=== PATIENT | male | born 1940 | race Caucasian/White ===

== ENCOUNTER → 2017-11-19 | Outpatient (CLI) | payer BC ==
--- NOTE | 2017-11-19 14:11 | US ---
EXAMINATION TYPE: US kidneys/renal and bladder DATE OF EXAM: 11/19/2017 COMPARISON: CT from 2012 CLINICAL HISTORY: R94.4 ABN KIDNEY FUNCTIONS. EXAM MEASUREMENTS: Right Kidney: 10.1 x 5.0 x 5.3 cm Left Kidney: 10.4 x 4.4 x 5.2 cm Right Kidney: Irregular contour; No hydronephrosis or masses seen Left Kidney: Irregular contour; nonshadowing echogenic foci suspicious for stone mid/lower pole Bladder: Suboptimally distended Bilateral Jets seen: right only There is no evidence for hydronephrosis at this point in time. Some cortical thinning is felt prese nt on images saved bilaterally. No suspicious solid or cystic masses are identified on images saved. The urinary bladder is poorly distended and thus suboptimally evaluated. Bilateral ureteral jets ar e not seen. IMPRESSION: No hydronephrosis is evident bilaterally.
== END ==
LOC: RADUSWWP 12:02
PROVIDERS: ATTEND Internal Medicine
DX: R94.4 Abnormal results of kidney function studies (principal)
CPT/HCPCS: 76770

== ENCOUNTER 2019-03-16 10:01 | Day surgery (SDC) | payer BC ==
[2019-03-11 15:10] VITALS: BMI 28.5
[~2019-03-16 10:01] MED LIST: LIDOCAINE 1% 20 ML VIAL (10MG/ML) FOR IV START INTRADERMA PRN
[2019-03-16 10:38] VITALS: TEMP 96.7
[2019-03-16 10:44] LABS: Glucose,Whole Blood 129 mg/dL (75-99)
[2019-03-16] MEDS: LACTATED RINGERS 1,000 ML IV SCH ×2 (10:50→10:51)
[2019-03-16] MEDS ORDERED: PROPOFOL 10 MG/ML 20 ML VIAL IV ONE (10:53)
[2019-03-16] MEDS ORDERED: LIDOCAINE 1% INJ 10MG/ML (20 ML MDV) ONE (10:53)
--- NOTE | 2019-03-16 10:55 | P.GSHP ---
History of Present Illness H&P Date: 03/16/19 Chief Complaint: Blood in stool 79-year-old male comes for colonoscopy today. Family history of colorectal cancer in his mother. No bowel related complaints. He is not sure when his last colonoscopy was. He recently had a cologuaRD test that came back positive. Here for that reason. Past Medical History Past Medical History: Coronary Artery Disease (CAD), Diabetes Mellitus, Hypertension, Prostate Disorder Additional Past Medical History / Comment(s): bowel obstruction History of Any Multi-Drug Resistant Organisms: None Reported Past Surgical History: AICD, Bowel Resection, Cardiac Ablation, Cholecystectomy, Pacemaker Past Anesthesia/Blood Transfusion Reactions: Previous Problems w/ Anesthesia Additional Past Anesthesia/Blood Transfusion Reaction / Comment(s): per pt "last colonoscopy given sedative caused blood pressure to spike" Type of Cardiac Device: Permanent Pacemaker, AICD Device Placement Date:: 2008 Smoking Status: Never smoker - Past Family History Mother Family Medical History: Cancer Additional Family Medical History / Comment(s): at 95 cancer of rectum Medications and Allergies Home Medications Medication Instructions Recorded Confirmed Type Aspirin 81 mg PO DAILY 03/27/14 03/11/19 History Carvedilol [Coreg] 6.25 mg PO BID 03/27/14 03/16/19 History Finasteride [Proscar] 5 mg PO DAILY 03/27/14 03/11/19 History Multivitamins, Thera [Multivitamin] 1 each PO DAILY 03/27/14 03/11/19 History Pravastatin Sodium [Pravachol] 80 mg PO DAILY 03/27/14 03/11/19 History Tamsulosin HCl [Flomax] 0.4 mg PO BID 03/27/14 03/11/19 History amLODIPine BESYLATE/BENAZEPRIL 1 each PO DAILY 03/27/14 03/16/19 History [Lotrel 5-20 mg Capsule] Glimepiride [Amaryl] 4 mg PO BID 03/11/19 03/11/19 History sitaGLIPtin PHOS/metFORMIN HCL 1 each PO Q48H 03/11/19 03/11/19 History [Janumet 50-500 mg Tablet] sitaGLIPtin PHOS/metFORMIN HCL 2 each PO Q48H 03/11/19 03/11/19 History [Janumet 50-500 mg Tablet] Allergies Allergy/AdvReac Type Severity Reaction Status Date / Time atorvastatin calcium AdvReac Rapid Verified 03/16/19 10:24 [From Lipitor] Heart Rate Surgical - Exam Vital Signs Temp Pulse Resp BP Pulse Ox 96.7 F L 85 14 174/82 96 03/16/19 10:36 03/16/19 10:36 03/16/19 10:36 03/16/19 10:36 03/16/19 10:36 Physical exam: General: Well-developed, well-nourished HEENT: Normocephalic, sclerae nonicteric Abdomen: Nontender, nondistended Extremities: No edema Neuro: Alert and oriented Results - Labs Abnormal Lab Results - Last 24 Hours (Table) 03/16/19 Range/Units 10:40 POC Glucose (mg/dL) 129 H (75-99) mg/dL Assessment and Plan (1) Blood in stool Narrative/Plan: Will proceed with colonoscopy at this time. Current Visit: Yes Status: Acute Code(s): K92.1 - MELENA SNOMED Code(s): 500143326
--- NOTE | 2019-03-16 11:21 | P.PCN ---
Date of Procedure: 03/16/19 Procedure(s) Performed: PREOPERATIVE DIAGNOSIS: Blood in stool POSTOPERATIVE DIAGNOSIS: Poor prep, sigmoid colon polyp 2, rectal polyp, tortuous colon, diverticulosis PROCEDURE: Colonoscopy to the transverse colon with polypectomy ANESTHESIA: MAC SURGEON: Martin Norwood M.D. SPECIMENS: Polyps ENDOSCOPIC PROCEDURE: The patient was placed on the endoscopy table in the left decubitus position. The Olympus colonoscope was inserted into the anus and passed under direct visualization to the mid to proximal transverse colon. We couldn't advance the scope any further given the significant tortuosity and the suboptimal prep. The scope was withdrawn from that point. No abnormalities throughout the transverse descending colon were identified. In the sigmoid 2 small polyps were identified and removed using the snare with cautery technique. In the distal rectum at about 5 cm there was noted to be a larger polyp measuring 1 cm that was removed using the snare with cautery technique in one piece. The remainder of the rectum was normal. There was mild left-sided diverticulosis present. Digital rectal examination was normal. The patient was taken to the recovery room in stable condition per anesthesia guidelines. RECOMMENDATIONS: Await biopsy results. Recommend short-term follow-up colonosc opy after 2 day prep.
[2019-03-16 11:32] VITALS: RESP 16
[2019-03-16 11:46] VITALS: BP 153/87; PULSE 73
== END 2019-03-16 12:24 | disposition home or self-care (01) ==
LOC: ORWHC2ENDO 10:01
PROVIDERS: ATTEND Surgery
DX: D12.8 Benign neoplasm of rectum (principal); K57.30 Diverticulosis of large intestine without perforation or abscess without bleeding; Z80.0 Family history of malignant neoplasm of digestive organs; I25.10 Atherosclerotic heart disease of native coronary artery without angina pectoris; I10 Essential (primary) hypertension; E11.9 Type 2 diabetes mellitus without complications; N42.9 Disorder of prostate, unspecified; Z95.810 Presence of automatic (implantable) cardiac defibrillator; Z79.82 Long term (current) use of aspirin; Z79.899 Other long term (current) drug therapy; Z79.84 Long term (current) use of oral hypoglycemic drugs; Z88.8 Allergy status to other drugs, medicaments and biological substances; Z87.19 Personal history of other diseases of the digestive system; Z90.49 Acquired absence of other specified parts of digestive tract
CPT/HCPCS: 88305; 45385; J2001; J2704

== ENCOUNTER → 2021-04-29 | Outpatient (CLI) | payer MEDICARE ==
--- NOTE | 2021-04-29 14:42 | CT ---
EXAMINATION TYPE: CT abdomen pelvis wo con DATE OF EXAM: 04/29/2021 COMPARISON: CT dated 01/25/2015 HISTORY: enlarged prostate CT DLP: 764.1 mGycm Automated exposure control for dose reduction was used. TECHNIQUE: Helical acquisition of images was performed from the lung bases through the pelvis. FINDINGS: LUNG BASES: Bilateral basal subsegmental pulmonary atelectasis. Cardiomediastinal shift to the left s thomas with cardiomegaly. Motion artifacts. LIVER/GB: Scattered tiny pinpoint calcifications likely related to previous granulomatous infection, appreciated previously. No definite hepatic focal lesion by this nonenhanced CT scan. Previous cholec ystectomy. PANCREAS: No significant abnormality is seen. SPLEEN: Tiny pinpoint calcifications likely related to previous granulomatous infection, appreciated previously ADRENALS: No significant abnormality is seen. KIDNEYS: 4 mm left midpole anterior nonobstructing stone. No hydroureter or hydronephrosis. Bilateral perinephric fat stranding and reactive fluid, nonspecific. Grossly unremarkable urinary bladder. FREE AIR: No free air is visualized RETROPERITONEAL ADENOPATHY: None visualized REPRODUCTIVE ORGANS: Prostatic concretion without significant enlargement. Unremarkable seminal vesic les. PELVIC ADENOPATHY: None visualized. OSSEOUS STRUCTURES: Diffuse osteopenia. Marked degenerative changes at the L3-4 level. Old healed le ft lower rib fractures. BOWEL: Significant fecal loading of the colon. Redundant elongated sigmoid colon demonstrating colon ic diverticulosis. Unremarkable small bowel anastomosis. Dilated anterior jejunal loops measuring up to 6.2 cm, likely chronic with no evidence of acute high-grade small bowel obstruction. Normal append ix. OTHER: Excessive arterial atherosclerotic calcifications. No sizable ascites. Fat-containing left ing uinal hernia. IMPRESSION: NO EVIDENCE OF PROSTATIC ENLARGEMENT BY THIS CT SCAN. NO GROSS METASTATIC DISEASE SEEN IN THE ABDOMEN OR THE PELVIS. RECOMMEND CORRELATION WITH PSA LEVEL AND BONE SCAN IF REQUIRED. INCIDENTAL FINDINGS A S DETAILED ABOVE.
--- NOTE | 2021-04-29 21:41 | NM ---
EXAMINATION TYPE: NM bone scan whole body DATE OF EXAM: 04/29/2021 COMPARISON: Same day CT abdomen and pelvis study. HISTORY: Prostate cancer Delayed whole-body scanning was performed following the injection of 22.9 mCi Tc 99m MDP. Images acq uired 3.5 hours post injection. Whole body images anterior posterior projection along with additional spot views of the thorax abdomen and pelvis and bilateral knees FINDINGS: . Focus of increased radiotracer uptake right mid to lower lumbar spine corresponds to incr eased degenerative change at L3-L4 level. Increased radiotracer uptake bilateral knees greatest laterally favors product of degenerative change . Foci of increased radiotracer uptake anterior right lower lobes correspond to cysts subtle sclerosis favor healing fractures late subacute phase for reference sagittal image 18. No suspicious increased radiotracer uptake to suggest metastatic disease to the bone. Urine Contamination is present. IMPRESSION: As above.
== END | disposition home or self-care (01) ==
LOC: RADNMMAIN 09:43
PROVIDERS: ATTEND Urology
DX: C61 Malignant neoplasm of prostate (principal); M47.816 Spondylosis without myelopathy or radiculopathy, lumbar region; M17.0 Bilateral primary osteoarthritis of knee
CPT/HCPCS: 74176; 78306; A9503

== ENCOUNTER → 2021-08-20 | Outpatient (CLI) | payer MEDICARE | END | disposition home or self-care (01) | LOC: LABWHC1 13:15 | PROVIDERS: ATTEND Radiology Radiation Oncology | DX: C61 Malignant neoplasm of prostate (principal); R35.1 Nocturia | CPT/HCPCS: 36415; 84153 ==

== ENCOUNTER → 2022-02-26 | Outpatient (CLI) | payer MEDICARE | END | disposition home or self-care (01) | LOC: LABWHC1 13:52 | PROVIDERS: ATTEND Radiology Radiation Oncology | DX: C61 Malignant neoplasm of prostate (principal); R35.1 Nocturia | CPT/HCPCS: 36415; 84153 ==

== ENCOUNTER → 2022-06-18 | Outpatient (CLI) | payer MEDICARE ==
--- NOTE | 2022-06-18 12:17 | XR ---
EXAMINATION TYPE: XR lumbar spine with bend/flex DATE OF EXAM: 06/18/2022 12:08 PM INDICATION: Patient age:Male; 82 years old; Reason for study: M54.50; [facility]. COMPARISON: Nuclear medicine bone scan 04/29/2021, CT abdomen pelvis 04/29/2021. TECHNIQUE: Frontal, lateral, flexion and extension views of the lumbar spine are obtained. FINDINGS: Diffuse bone demineralization. No evidence of any acute osseous pathology. No evidence of loss of vertebral body height is seen. Multilevel degenerative disc disease with disc space narrowing and endplate sclerosis with anterior osteophytosis. This is most pronounced at L3-L4, L4-L5 and L5-S 1. Multilevel facet arthropathy. Mild levoscoliotic curvature of the lumbar spine with apex at L2-L3. No spondylolisthesis. Vascular sclerosis. Postsurgical changes of the bowel demonstrated within the right lower quadrant with suture material identified. IMPRESSION: 1. No acute process. 2. Moderate lumbar degenerative disc disease and osteoarthritic changes.
== END | disposition home or self-care (01) ==
LOC: RADXRMAIN 11:44
PROVIDERS: ATTEND Internal Medicine
DX: M51.36 Other intervertebral disc degeneration, lumbar region (principal); M47.816 Spondylosis without myelopathy or radiculopathy, lumbar region
CPT/HCPCS: 72114

== ENCOUNTER → 2022-07-09 | Outpatient (CLI) | payer MEDICARE ==
--- NOTE | 2022-07-09 15:51 | XR ---
EXAMINATION TYPE: XR KUB DATE OF EXAM: 07/09/2022 COMPARISON: 01/29/2013 INDICATION: Renal calculus TECHNIQUE: Single view abdomen supine view FINDINGS: There is a normal bowel gas pattern. There appear to be some bowel suture within the right mid abdome n. Psoas margins are normal. No organomegaly is present. Renal stones are not well delineated. IMPRESSION: 1. Unremarkable Abdomen
== END | disposition home or self-care (01) ==
LOC: RADXRMAIN 15:24
PROVIDERS: ATTEND Urology
DX: N20.0 Calculus of kidney (principal)
CPT/HCPCS: 74018

== ENCOUNTER → 2024-02-09 | Outpatient (CLI) | payer MEDICARE ==
--- NOTE | 2024-02-11 00:25 | US ---
EXAMINATION TYPE: US arterial LE single level DATE OF EXAM: 02/09/2024 1:39 PM COMPARISONS: None. CLINICAL INDICATION: Male, 83 years old with history of I73.9 PERIPHERAL VASCULAR DISEASE, UNSPECIFIE D; TECHNIQUE: Systolic pressures were taken of the upper and lower extremity arteries with ankle-brachia l indices and toe brachial indices calculated bilaterally. 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 Extensive vascular calcifications likely present with inability to occlude additional vascular str uctures. Consider CTA runoff for further lower extremity evaluation stenosis. [facility], , 02/11/2024 12:22 AM
== END | disposition home or self-care (01) ==
LOC: RADUSWWP 12:44
PROVIDERS: ATTEND Internal Medicine
DX: I73.9 Peripheral vascular disease, unspecified (principal); E11.51 Type 2 diabetes mellitus with diabetic peripheral angiopathy without gangrene; E78.5 Hyperlipidemia, unspecified; I10 Essential (primary) hypertension; Z86.73 Personal history of transient ischemic attack (TIA), and cerebral infarction without residual deficits; Z87.891 Personal history of nicotine dependence
CPT/HCPCS: 93923

== ENCOUNTER 2024-05-04 10:14 | Inpatient (IN) | payer MEDICARE ==
--- NOTE | 2024-05-04 10:59 | ED ---
General Adult HPI - General Chief complaint: Fall Stated complaint: fall, hip injjury Time Seen by Provider: 05/04/24 10:15 Source: patient, family, EMS, RN notes reviewed Mode of arrival: EMS Limitations: no limitations - History of Present Illness Initial comments: Patient is an 84-year-old male present to the emergency department with concerns with left hip discomfort. Patient had a trip and fall 2 days ago. Patient landed on his left hip. Patient has had hip discomfort with that time, usually just with movement or standing. Patient is not able to ambulate. Patient did strike his head. No syncope or loss of consciousness. No confusion or new weakness. Patient also struck his left elbow however no longer has discomfort there. Patient did have some abrasions. Unclear last tetanus immunization. - Related Data Home Medications Medication Instructions Recorded Confirmed Aspirin 81 mg PO DAILY 03/27/14 05/04/24 Tamsulosin HCl [Flomax] 0.4 mg PO HS 03/27/14 05/04/24 Glimepiride [Amaryl] 4 mg PO BID 03/11/19 05/04/24 sitaGLIPtin PHOS/metFORMIN HCL 1 tab PO BID 03/11/19 05/04/24 [Janumet 50-500 mg Tablet] Acetaminophen [Tylenol Arthritis] 1,300 mg PO DAILY 05/04/24 05/04/24 Acetaminophen/Diphenhydramine 2 tab PO HS 05/04/24 05/04/24 [Tylenol PM 500-25mg] Dapagliflozin Propanediol [Farxiga] 5 mg PO DAILY 05/04/24 05/04/24 Docusate [Colace] 200 mg PO HS 05/04/24 05/04/24 Ezetimibe [Zetia] 10 mg PO HS 05/04/24 05/04/24 Famotidine [Pepcid] 20 mg PO DAILY PRN 05/04/24 05/04/24 Loratadine [Claritin] 10 mg PO DAILY PRN 05/04/24 05/04/24 Metoprolol Succinate (ER) [Toprol 25 mg PO BID 05/04/24 05/04/24 Xl] Multivit-Minerals/FA/Lycopene 1 tab PO HS 05/04/24 05/04/24 [One-A-Day Men's 50 Plus Tablet] Rosuvastatin Calcium [Crestor] 40 mg PO HS 05/04/24 05/04/24 bisacodyL [Dulcolax] 5 mg PO DAILY PRN 05/04/24 05/04/24 Allergies Allergy/AdvReac Type Severity Reaction Status Date / Time atorvastatin calcium AdvReac Rapid Verified 05/04/24 12:45 [From Lipitor] Heart Rate Review of Systems ROS Statement: Those systems with pertinent positive or pertinent negative responses have been documented in the HPI. ROS Other: All systems not noted in ROS Statement are negative. Constitutional: Denies: fever Eyes: Denies: eye pain Respiratory: Denies: cough, dyspnea Cardiovascular: Denies: chest pain Musculoskeletal: Reports: as per HPI Neurological: Denies: headache, weakness, confusion Past Medical History Past Medical History: Coronary Artery Disease (CAD), Diabetes Mellitus, Hypertension, Prostate Disorder Additional Past Medical History / Comment(s): bowel obstruction History of Any Multi-Drug Resistant Organisms: None Reported Past Surgical History: AICD, Bowel Resection, Cardiac Ablation, Cholecystectomy, Pacemaker Past Anesthesia/Blood Transfusion Reactions: Previous Problems w/ Anesthesia Additional Past Anesthesia/Blood Transfusion Reaction / Comment(s): per pt "last colonoscopy given sedative caused blood pressure to spike" Type of Cardiac Device: Permanent Pacemaker, AICD Device Placement Date:: 2008 Past Psychological History: No Psychological Hx Reported Past Alcohol Use History: Daily Past Drug Use History: None Reported - Past Family History Mother Family Medical History: Cancer Additional Family Medical History / Comment(s): at 95 cancer of rectum General Exam Limitations: no limitations General appearance: alert, in no apparent distress Head exam: Present: atraumatic Eye exam: Present: normal appearance, PERRL Neck exam: Present: normal inspection. Absent: tenderness Respiratory exam: Present: normal lung sounds bilaterally Cardiovascular Exam: Present: regular rate, normal rhythm GI/Abdominal exam: Present: soft. Absent: tenderness Extremities exam: Present: tenderness (Left superior rami region. Distally extremities are neurovascular intact) Neurological exam: Present: alert. Absent: motor sensory deficit Psychiatric exam: Present: normal affect, normal mood Skin exam: Present: abrasion Course Vital Signs 05/04/24 10:15 Temperature 97.2 F L Pulse Rate 74 Respiratory 18 Rate Blood Pressure 159/91 O2 Sat by Pulse 96 Oximetry Medical Decision Making - Medical Decision Making Was pt. sent in by a medical professional or institution (Dr., PA, [employer], urgent care, hospital, or [facility]...) When possible be specific @ -No Did you speak to anyone other than the patient for history (EMS, parent, family, police, friend...)? What history was obtained from this source @ - is present and provides history including when the incident occurred and that patient cannot ambulate Did you review nursing and triage notes (agree or disagree)? Why? @ -I reviewed and agree with nursing and triage notes Were old charts reviewed (outside hosp., previous admission, EMS record, old EKG, old radiological studies, urgent care reports/EKG's, [facility] records)? Report findings @ -No old charts were reviewed Differential Diagnosis (chest pain, altered mental status, abdominal pain women, abdominal pain men, vaginal bleeding, weakness, fever, dyspnea, syncope, headache, dizziness, GI bleed, back pain, seizure, CVA, palpatations, mental health, musculoskeletal)? @ -Differential Musculoskeletal Muscular strain, contusion, ligament sprain, fracture, arthritis, septic arthritis, bursitis, cellulitis, muscle spasm, nerve compression, DVT, arterial occlusion, herpes zoster, electrolyte abnormality, tumor.... This is not meant to be in all inclusive list EKG interpreted by me (3pts min.). @ -As above X-rays interpreted by me (1pt min.). @ -Chest x-ray shows no acute process. Left hip x-ray shows left femoral neck fracture. CT interpreted by me (1pt min.). @ -CT scan of brain unremarkable for acute intracranial abnormality U/S interpreted by me (1pt. min.). @ -None done What testing was considered but not performed or refused? (CT, X-rays, U/S, labs)? Why? @ -None What meds were considered but not given or refused? Why? @ -None Did you discuss the management of the patient with other professionals (professionals i.e. KEYLA Mooney, [employer], lab, RT, psych nurse, social work associate, criminal justice lawyer, teacher, geospatial program management officer, telephonic case manager)? Give summary @ -Orthopedics, Dr. Farris notified for admission Was smoking cessation discussed for >3mins.? @ -No Was critical care preformed (if so, how long)? @ -No Were there social determinants of health that impacted care today? How? (Homelessness, low income, unemployed, alcoholism, drug addiction, transportation, low edu. Level, literacy, decrease access to med. care, detention, rehab)? @ -No Was there de-escalation of care discussed even if they declined (Discuss DNR or withdrawal of care, Hospice)? DNR status @ -No What co-morbidities impacted this encounter? (DM, HTN, Smoking, COPD, CAD, Cancer, CVA, ARF, Chemo, Hep., AIDS, mental health diagnosis, sleep apnea, morbid obesity)? @ -History of previous strokes Was patient admitted / discharged? Hospital course, mention meds given and route, prescriptions, significant lab abnormalities, going to OR and other pertinent info. @ -Patient presents with fall and left hip pain, unable to ambulate. X-ray positive for fracture. Patient will be admitted. Patient and family updated Undiagnosed new problem with uncertain prognosis? @ -No Drug Therapy requiring intensive monitoring for toxicity (Heparin, Nitro, Insulin, Cardizem)? @ -No Were any procedures done? @ -No Diagnosis/symptom? @ -Left hip fracture Acute, or Chronic, or Acute on Chronic? @ -Acute Uncomplicated (without systemic symptoms) or Complicated (systemic symptoms)? @ -Default Side effects of treatment? @ -No Exacerbation, Progression, or Severe Exacerbation? @ -No Poses a threat to life or bodily function? How? (Chest pain, USA, PA, pneumonia, PE, COPD, DKA, ARF, appy, cholecystitis, CVA, Diverticulitis, Homicidal, Suicidal, threat to staff... and all critical care pts) @ -No Disposition Clinical Impression: Hip fracture, left Disposition: ADMITTED IP TO THIS HOSP Is patient prescribed a controlled substance at d/c from ED?: No Decision Time: 11:56
[2024-05-04] MEDS: MORPHINE SULFATE 4 MG/ML SYRINGE IM STA (11:03)
[2024-05-04] MEDS: DIPH,PERTUS(ACELL)TETVAC-LF 0.5 ML VIAL IM ONE (11:03)
--- NOTE | 2024-05-04 11:58 | XR ---
EXAMINATION TYPE: XR chest 1V portable DATE OF EXAM: 05/04/2024 11:51 AM COMPARISON: Chest radiographs from 03/27/2014 TECHNIQUE: XR chest 1V portable Portable AP radiograph of the chest. CLINICAL INDICATION:Male, 84 years old with history of fall; FINDINGS: Lungs/Pleura: There is no evidence of pleural effusion, focal consolidation, or pneumothorax. Chroni c interstitial prominence. Heart/mediastinum: Cardiomediastinal silhouette is enlarged and stable. Atherosclerotic calcificatio ns are seen in the aorta. Two lead cardiac conduction device overlying the left hemithorax with lead tips projecting over the right ventricle and right atrium. Musculoskeletal: No acute osseous pathology. IMPRESSION: Chronic changes without evidence for acute process. [facility], , 05/04/2024 11:56 AM
--- NOTE | 2024-05-04 12:00 | XR ---
EXAMINATION TYPE: XR Hip LT and AP Pelvis DATE OF EXAM: 05/04/2024 11:51 AM INDICATION: Patient age:Male; 84 years old; Reason for study: fall; PHH. pain COMPARISON: CT abdomen and pelvis 04/29/2021, KUB radiograph 07/10/2019. TECHNIQUE: The left hip was examined in the frontal and lateral projections and a AP pelvis. FINDINGS: Diffuse bone demineralization. Acute displaced left proximal femur subcapital fracture with shortening. No dislocation. Mild osteoarthritic changes of both hips with medial joint space narrowi ng and acetabular sclerosis. No soft tissue swelling. Vascular calcifications. Prominent gas-filled c olon. Left-sided pelvic phlebolith. IMPRESSION: Acute displaced left proximal femoral subcapital fracture. [facility], , 05/04/2024 11:58 AM
--- NOTE | 2024-05-04 12:12 | CT ---
EXAMINATION TYPE: CT brain wo con CT DLP: 1192.4 mGycm, Automated exposure control for dose reduction was used. DATE OF EXAM: 05/04/2024 12:03 PM COMPARISON: None. CLINICAL INDICATION:Male, 84 years old with history of hi, Fall. Pain TECHNIQUE: Brain: Multiple axial CT images of the brain were obtained without IV contrast. . Coronal and sagitta l reformats reviewed. FINDINGS: Brain: Extra-axial spaces: No abnormal extra-axial fluid collections. Ventricular system: Within normal limits Cerebral parenchyma: Cerebral atrophy. No acute intraparenchymal hemorrhage or mass effect. The juarez -white junction is well differentiated. Scattered hypoattenuating areas are seen within the periventr icular and subcortical white matter. Cerebellum: Unremarkable. Mass effect: No evidence of midline shift. Intracranial vasculature: Atherosclerotic calcifications of the intracranial vessels. Soft tissues: Normal. Calvarium/osseous structures: No depressed skull fracture. Paranasal sinuses and mastoid air cells: Partial opacification of the right mastoid air cells. The pa ranasal sinuses are clear. The left mastoid air cells are clear. Visualized orbits: Bilateral aphakia IMPRESSION: 1. No acute intracranial process. 2. Nonspecific white matter changes, likely secondary to chronic small vessel ischemic disease. 3. Right mastoid effusion. [facility], , 05/04/2024 12:10 PM
[2024-05-04] MEDS ORDERED: HYDROmorphone 0.5 MG/0.5 ML SYRINGE IVP PRN (13:23)
[2024-05-04] MEDS ORDERED: ACETAMINOPHEN TAB 325 MG TAB PO PRN (13:23)
[2024-05-04] MEDS ORDERED: NALOXONE 0.4 MG/ML 1 ML VIAL IV PRN (13:23)
[2024-05-04] MEDS ORDERED: LORATADINE 10 MG TAB PO PRN (13:25)
[2024-05-04 13:54] LABS: Basophils % (A) 0 %; Eosinophils # (A) 0.4 k/uL (0-0.7); Eosinophils % (A) 6 %; HCT 39.6 % (39.0-53.0); HGB 12.8 gm/dL (13.0-17.5); Lymphocytes # (A) 1.3 k/uL (1.0-4.8); Lymphocytes % (A) 17 %; MCH 30.8 pg (25.0-35.0); MCHC 32.2 g/dL (31.0-37.0); MCV 95.6 fL (80.0-100.0); Mean Platelet Volume 7.8; Monocytes # (A) 0.5 k/uL (0-1.0); Monocytes % (A) 6 %; Neutrophils # (A) 5.6 k/uL (1.3-7.7); Neutrophils % (A) 71 %; Platelet Count 190 k/uL (150-450); RBC 4.14 m/uL (4.30-5.90); RDW 13.1 % (11.5-15.5)
[2024-05-04 14:01] LABS: INR 1.1 (<1.2); Prothrombin Time 11.8 sec (10.0-12.5)
[2024-05-04 14:09] LABS: ALT 33 U/L (4-49); African American GFR (CKD) 49 (>60 ml/min/1.73 sqM); Albumin 3.7 g/dL (3.5-5.0); Anion Gap 11 mmol/L; Blood Urea Nitrogen 41 mg/dL (9-20); Calcium 9.3 mg/dL (8.4-10.2); Carbon Dioxide 20 mmol/L (22-30); Chloride 104 mmol/L (98-107); Glucose 115 mg/dL (74-99); Non-African American GFR(CKD) 43 (>60 ml/min/1.73 sqM); Sodium 135 mmol/L (137-145); Total Protein 6.5 g/dL (6.3-8.2)
[2024-05-04 14:13] LABS: AST 35 U/L (17-59); Alkaline Phosphatase 57 U/L (38-126); Potassium 5.6 mmol/L (3.5-5.1)
[2024-05-04] MEDS: HYDROmorphone 1 MG/ML 1 ML SYRINGE IVP PRN (14:58)
[2024-05-04] MEDS ORDERED: DEXTROSE 50% SYRINGE 50 ML IVP PRN ×2 (15:08)
--- NOTE | 2024-05-04 16:02 | P.HPOR ---
History of Present Illness H&P Date: 05/04/24 Chief Complaint: Left hip pain status post fall Patient is a very pleasant [id number]-year-old man who is seen and examined at bedside with his family present. Apparently on Thursday the patient was just walking into his house and try to get inside from the garage and tripped on the step and fell onto his left side. The patient has regular issues with his legs and difficulty walking and usually uses a walker. He often has difficulties with his ambulation and has some chronic weakness at his left leg. He does not feel that he gets around well and is unable to get through the store on his own even with a walker. He also tends to have to use his arms to move his legs around when getting in and out of the car. The patient had a fall in his garage he denies any loss of consciousness. He denies any headaches or neck pain. He had some soreness at his left elbow but it is resolved. He has significant and severe pain at his left hip. He is unable to ambulate or mobilize. He has pain with any motion in his left leg. He denies any pain in his ankle foot or toes. He denies any right leg pain he denies any upper extremity pain denies any neck pain or back pain. He denies any prior issues with his left lower extremity in the past. Denies any changes bowel bladder function. Patient admits to history of diabetes. History of a stroke over 20 years ago and has some residual speech issues but no specific weakness from the stroke. He lives at home with his and normally ambulates with a walker only a small degree and essentially does transfers and walks less than 5 minutes at a stretch before he has to sit down Review of Systems As stated per HPI. He denies headaches or loss of consciousness. He denies any numbness tingling his feet. He denies any changes bowel bladder function he is only really complaining of pain in his left hip Past Medical History Past Medical History: Atrial Fibrillation, Coronary Artery Disease (CAD), Cancer, CVA/TIA, Diabetes Mellitus, GERD/Reflux, Hypertension, Prostate Disorder, Renal Disease Additional Past Medical History / Comment(s): bowel obstruction, prostate CA, swelling in ankles, stage 3 kidney dz, afib/had cardiac ablation History of Any Multi-Drug Resistant Organisms: None Reported Past Surgical History: AICD, Bowel Resection, Cardiac Ablation, Cholecystectomy, Hernia Repair, Pacemaker Past Anesthesia/Blood Transfusion Reactions: Previous Problems w/ Anesthesia Additional Past Anesthesia/Blood Transfusion Reaction / Comment(s): per pt "last colonoscopy given sedative caused blood pressure to spike" Type of Cardiac Device: Permanent Pacemaker, AICD Device Placement Date:: 2008 Past Psychological History: No Psychological Hx Reported Smoking Status: Former smoker Past Alcohol Use History: Daily Past Drug Use History: None Reported - Past Family History Mother Family Medical History: Cancer Additional Family Medical History / Comment(s): at 95 cancer of rectum Medications and Allergies Home Medications Medication Instructions Recorded Confirmed Type Aspirin 81 mg PO DAILY 03/27/14 05/04/24 History Tamsulosin HCl [Flomax] 0.4 mg PO HS 03/27/14 05/04/24 History Glimepiride [Amaryl] 4 mg PO BID 03/11/19 05/04/24 History sitaGLIPtin PHOS/metFORMIN HCL 1 tab PO BID 03/11/19 05/04/24 History [Janumet 50-500 mg Tablet] Acetaminophen [Tylenol Arthritis] 1,300 mg PO DAILY 05/04/24 05/04/24 History Acetaminophen/Diphenhydramine 2 tab PO HS 05/04/24 05/04/24 History [Tylenol PM 500-25mg] Dapagliflozin Propanediol [Farxiga] 5 mg PO DAILY 05/04/24 05/04/24 History Docusate [Colace] 200 mg PO HS 05/04/24 05/04/24 History Ezetimibe [Zetia] 10 mg PO HS 05/04/24 05/04/24 History Famotidine [Pepcid] 20 mg PO DAILY PRN 05/04/24 05/04/24 History Loratadine [Claritin] 10 mg PO DAILY PRN 05/04/24 05/04/24 History Metoprolol Succinate (ER) [Toprol 25 mg PO BID 05/04/24 05/04/24 History Xl] Multivit-Minerals/FA/Lycopene 1 tab PO HS 05/04/24 05/04/24 History [One-A-Day Men's 50 Plus Tablet] Rosuvastatin Calcium [Crestor] 40 mg PO HS 05/04/24 05/04/24 History bisacodyL [Dulcolax] 5 mg PO DAILY PRN 05/04/24 05/04/24 History Allergies Allergy/AdvReac Type Severity Reaction Status Date / Time atorvastatin calcium AdvReac Rapid Verified 05/04/24 12:45 [From Lipitor] Heart Rate Physical Examination Osteopathic Statement: *. No significant issues noted on an osteopathic structural exam other than those noted in the History and Physical/Consult. - Hip left Gait: other (Unable to ambulate or mobilize due to his left hip pain) Tenderness with palpation: lateral (Severe pain with any motion or palpation of the left hip. He is unable to move his left hip at all due to pain. He has sustained dorsiflexion plantarflexion EHL and ankle foot and toes bilaterally) Pain with motion: internal rotation and hip flexion, external rotation and hip flexion (His calves and thighs soft nontender. Distal pulses are intact 2/4) Results - Labs Labs: Abnormal Lab Results - Last 24 Hours (Table) 05/04/24 05/04/24 Range/Units 13:47 13:47 RBC 4.14 L (4.30-5.90) m/uL Hgb 12.8 L (13.0-17.5) gm/dL Sodium 135 L (137-145) mmol/L Potassium 5.6 H (3.5-5.1) mmol/L Carbon Dioxide 20 L (22-30) mmol/L BUN 41 H (9-20) mg/dL Creatinine 1.49 H (0.66-1.25) mg/dL Glucose 115 H (74-99) mg/dL H & H 05/04/24 Range/Units 13:47 Hgb 12.8 L (13.0-17.5) gm/dL Hct 39.6 (39.0-53.0) % Coagulation 05/04/24 Range/Units 13:47 INR 1.1 (<1.2) Result Diagrams: 05/04/24 13:47 05/04/24 13:47 - Diagnostic results Hip x-ray: report reviewed, image reviewed (Hip and pelvis x-rays are reviewed. It shows a left femoral neck fracture with displacement and angulation. It does not appear to extend into the lesser troches. There is no shaft fracture. His bones appear to be osteopenic) Assessment and Plan Assessment: Acute traumatic left hip femoral neck fracture due to a fall Inability to ambulate due to fracture History of diabetes History of stroke History of renal insufficiency Plan: Acute traumatic left hip femoral neck fracture due to a fall Inability to ambulate due to fracture History of diabetes History of stroke History of renal insufficiency The patient has a new acute injury in his left hip and his best course of action is to pursue surgical intervention. I discussed the issue of his hip fracture at length with him and his and daughter at bedside. We discussed the issues with him being able to mobilize as well as his other medical issues and how they contribute. We discussed the risk complications alternatives and b enefits of surgery including not limited to the risk of bleeding risk of infection with need for further surgery risk of decrease or loss of motion loss of function malunion nonunion hardware failure nerve damage inability to ambulate even the possibility and risks with anesthesia as a pertains to the surgery. They understand that this is a severe injury and he may lose significant independence and may not be able to ambulate in the future. I think that surgical intervention gives him the best chance of improving his mobility and allowing him to ambulate to gain further independence following this injury. I discussed this with him at length and answered their questions to the best of my ability and they elect to proceed with surgical intervention. Will make the patient n.p.o. after midnight The patient has been seen by his primary care physician and we will proceed with medical clearance for surgery Will plan for left hip hemiarthroplasty on .
[2024-05-04] MEDS: SODIUM CHLORIDE 0.9% 1,000 ML IV SCH (16:24)
[2024-05-04 16:31] LABS: Glucose,Whole Blood 197 mg/dL (70-110)
[2024-05-04] MEDS: SODIUM ZIRCONIUM CYCLOSILICATE 10 GM PACKET PO ONE (17:20)
[2024-05-04] MEDS: INSULIN LISPRO (HumaLOG) 100 UNIT/ML 10 mL VL SQ SCH (17:20)
[2024-05-04 19:58] LABS: Glucose,Whole Blood 153 mg/dL (70-110)
[2024-05-04] MEDS: NON FORMULARY DRUG (Rosuvastatin Calcium [Crestor] 40 MG Tablet) PO SCH (20:18)
[2024-05-04] MEDS: diphenhydrAMINE 50 MG CAP PO SCH (20:23)
[2024-05-04] MEDS: EZETIMIBE 10 MG TAB PO SCH (20:24)
[2024-05-04] MEDS: GLIMEPIRIDE 4 MG TAB PO SCH (20:24)
[2024-05-04] MEDS: ACETAMINOPHEN TAB 500 MG TAB PO SCH (20:24)
[2024-05-04] MEDS: MULTIVITAMINS, THERA 1 EACH TAB PO SCH (20:24)
[2024-05-04] MEDS: metFORMIN 500 MG TAB PO SCH (20:24)
[2024-05-04] MEDS: DOCUSATE 100 MG CAP PO SCH (20:24)
[2024-05-04] MEDS: TAMSULOSIN 0.4 MG CAP.ER.24H PO SCH (20:24)
[2024-05-04] MEDS: METOPROLOL SUCCINATE (ER) 25 MG TAB.ER.24H PO SCH (20:24)
[2024-05-04] MEDS: HYDROcodone/APAP 7.5-325MG 1 EACH TAB PO PRN (20:43)
[2024-05-05] MEDS: MORPHINE SULFATE 4 MG/ML SYRINGE IVP PRN (03:03)
[2024-05-05 06:09] LABS: Glucose,Whole Blood 124 mg/dL (70-110)
[2024-05-05] MEDS: IV FLUID CONTINUATION 1,000 ML IV ONE (10:54)
[2024-05-05 11:11] LABS: Glucose,Whole Blood 141 mg/dL (70-110)
[2024-05-05] MEDS: DEXAMETHASONE SOD PHOSPHATE 4 MG/ML 1 ML VIAL IVP STA (11:44)
[2024-05-05] MEDS: MIDAZOLAM 2 MG/2 ML VIAL IV ONE (11:44)
[2024-05-05] MEDS: ONDANSETRON 4 MG/2 ML VIAL IVP STA (11:45)
[2024-05-05] MEDS ORDERED: ROPIVACAINE 5 MG/ML 30 ML VIAL ONE (11:56)
[2024-05-05] MEDS ORDERED: DEXAMETHASONE SOD PHOSPHATE 4 MG/ML 1 ML VIAL ONE (11:56)
[2024-05-05] MEDS ORDERED: ETOMIDATE 2 MG/ML 10 ML VIAL ONE (11:56)
[2024-05-05] MEDS ORDERED: SUGAMMADEX SODIUM 100 MG/ML SYR IV ONE (11:56)
[2024-05-05] MEDS ORDERED: LIDOCAINE 1% INJ 10MG/ML (20 ML MDV) ONE (11:56)
[2024-05-05] MEDS ORDERED: KETAMINE HCL IN 0.9 % NACL 50 MG/5 ML SYRINGE ONE (11:56)
[2024-05-05] MEDS ORDERED: PHENYLEPHRINE 10 MG/ML VIAL ONE (11:56)
[2024-05-05] MEDS ORDERED: ePHEDrine 50 MG/ML 1 ML VIAL ONE (11:56)
[2024-05-05] MEDS ORDERED: WATER FOR INJECTION, STERILE 10 ML VIAL IV ONE (11:56)
--- NOTE | 2024-05-05 12:55 | P.ANPRN ---
Procedure Note - Anesthesia - Nerve Block Performed Left Donal Single Time Out Performed: Yes Date of Procedure: 05/05/24 Procedure Start Time: 11:30 Procedure Stop Time: 11:35 Location of Patient: PreOp Indication: Acute Post-Operative Pain, Analgesia, Requested by Surgeon Sedation Type: Sedate with meaningful contact maintained Preparation: Sterile Prep Position: Supine Catheter: None Needle Types: Pajunk Needle Gauge: 21 Ultrasound used to visualize needle placement: Yes Ultrasound used to observe medication spread: Yes Injectate: 0.5% Ropivacaine (see comment for volume) ([id number]) Blood Aspirated: No Pain Paresthesia on Injection Noted: No Resistance on Injection: Normal Image Stored and Saved: Yes Events: Uneventful and Well Tolerated
[2024-05-05] MEDS ORDERED: HYDROcodone/APAP 5-325MG 1 EACH TAB PO PRN (13:29)
[2024-05-05] MEDS ORDERED: HYDROmorphone 0.5 MG/0.5 ML SYRINGE IVP PRN (13:29)
[2024-05-05] MEDS ORDERED: NALOXONE 0.4 MG/ML 1 ML VIAL IV PRN (13:30)
--- NOTE | 2024-05-05 13:39 | P.OP ---
Date of Procedure: 05/05/24 Preoperative Diagnosis: Left hip femoral neck fracture, acute traumatic displaced and angulated neurovascular intact status post fall Postoperative Diagnosis: Same Anesthesia: GETA Pathology: other (Femoral head to pathology) Condition: stable Disposition: PACU Description of Procedure: Preoperative diagnosis: Left hip femoral neck fracture, acute traumatic displaced and angulated neurovascular intact status post fall Postoperative diagnosis: Same Procedure: Hip hemiarthroplasty, left Surgeon: Dr. Kaleigh Calderont.: Chris Rivers who is present that the entire the case persistence during positioning dissection exposure placement of hardware and closure Anesthesia: General Per Dr. Mckenzie Estimated blood loss: 100 cc Components implanted: [employer] size 6 collared stem with a 50 mm ball standard neck Disposition: To recovery room in good stable condition Operative indications The patient sustained a injury and suffered a femoral neck fracture which was displaced and angulated. He is normally a minimal ambulator with a walker. He is typically able to change positions and get around the house with his walker but is unable to walk more than 5 minutes in general. He was exiting his car and trying to get into his house when he fell in his garage onto his left hip. He has history of cerebrovascular accident and some cardiac history. He norm ally gets around with significant assistance and with his walker but is able to get himself dressed and get up for meals on his own and get to the bathroom on his own. We were involved in the case in regard to his hip fracture. After evaluation it was determined that they would be a candidate for hip hemiarthroplasty via surgical intervention. This would give them the best chance of mobilization and ambulation. We discussed the range of treatment options from conservative to surgical. They elected proceed with surgical intervention. We answered their questions to the best of our ability healing which they can understand. They signed an informed consent. Operative summary After obtaining informed consent evaluation by anesthesia, preoperative evaluation and clearance for medical service, the patient was identified and prepped [place] area and the surgical site was marked. There brought to the operating room where the given appropriate anesthesia by the anesthesia department in standard fashion without any complications. Once the anesthesia was established we were able to position the patient. There placed in a lateral decubitus position with the operative side up being careful to pad any bony prominences and pressure points and place a excellent roll appropriately. The airway and C-spine was monitored continuously. Once patient was well positioned the left lower extremity was prepped and draped in normal standard sterile fashion. An appropriate keystone protocol and timeout was completed and were able to proceed with surgery. A curvilinear incision was established over the greater trochanter. Dissection was taken down to the tensor fascia jae which was split in line with its fibers and extended proximally into the gluteal fibers. A Charnley retractor was established. The trochanteric bursa was inflamed and removed. I was able to then dissect down off the posterior aspect of the greater trochanter taking the piriformis tendon and the posterior capsule in one full-thickness flap and tacking it with suture. This expose the fracture at the femoral neck which was easily identified. There is a comminuted fracture of the femoral neck which was displaced. A guide was used to establish the appropriate femoral neck cut and a bone-cutting saw was used to establish the femoral neck cut and good alignment and good position. All the bony fragments were removed. I was then able to use a corkscrew device to remove the femoral head from the acetabulum. Any loose fragments in the acetabulum were removed. The femoral head was measured for the appropriate size implant and then passed off for pathology. Appropriate retractors were placed and I established a lateral box cut chisel. I then used a starting reamer to establish the femoral canal area I then sequentially reamed with sequential reamers until we had good bony chatter distally. With this we then started to broach with sequential broaches to the appropriate sized to we had good fit and fill. There is no evidence any fracture in the possible femur. With the appropriate size broach well seated and stable I placed the trial neck and head. A gentle reduction was performed to get good reduction. The hip was taken through a good range of motion and found to be stable in the position of sleep and through a range of motion. It had a good shuck test. We were able to then dislocate the trial prosthesis. The broach was found to remain stable. It was then removed. The wound was copiously irrigated and suctioned dry with pulsatile lavage. The appropriate size femoral stem of a size 6 with collar with a 50 mm head and a standard neck was chosen and positioned and placed in good alignment and good position with excellent fit and fill seated appropriately over the calcar. It w as checked and found to be stable. The trunnion was cleaned and dried the femoral head was then positioned over the femoral neck malleted in position checked and found to be stable. The hip prosthesis was then gently reduced back into the acetabulum and found to have excellent position and excellent stability and excellent range of motion with stability. There is no evidence of dislocation or fracture. The wound was copiously irrigated and suctioned dry. We are able to proceed with closure. The piriformis and posterior capsule were reapproximated to the posterior aspect of the greater trochanter with transosseous stitches. The wound was irrigated and suctioned dry. The fascia was closed with #2 strata fix for watertight closure. Subcutaneous tissue was irrigated and suctioned dry. Subcu tissues closed with 2-0 Vicryl subcuticular tissue was closed with 3.0 STRATAFIX. Wound is clean and dried and dressed with Dermabond Adaptic 4 x 4's ABDs and tape. Drapes were broken down, the hip was held in stable position, and an abduction pillow was placed. The patient was then transferred back to their hospital bed being careful to maintain the hip and C-spine alignment and airway. Once stable to patient was transferred back to the postanesthesia care unit to be readmitted for pain control and DVT prophylaxis medical management and monitoring and mobilization we will continue follow patient closely throughout their postoperative course.
[2024-05-05] MEDS: ACETAMINOPHEN TAB 500 MG TAB PO SCH (13:51)
[2024-05-05] MEDS: LINAGLIPTIN 5 MG TABLET PO SCH (13:52)
[2024-05-05] MEDS: DAPAGLIFLOZIN PROPANEDIOL 5 MG TABLET PO SCH (13:52)
[2024-05-05] MEDS: SODIUM CHLORIDE 0.9% 1,000 ML IV SCH (13:53)
--- NOTE | 2024-05-05 14:19 | XR ---
EXAMINATION TYPE: XR Hip Limited LT DATE OF EXAM: 05/05/2024 2:13 PM INDICATION: Patient age:Male; 84 years old; Reason for study: Postop left hip hemiarthroplasty; PHH. pain COMPARISON: Left hip radiograph 05/04/2024 TECHNIQUE: The left hip was examined in single frontal projection. FINDINGS: Postsurgical changes from left hip hemiarthroplasty for prior subcapital fracture. Hardware appears intact and appropriately aligned. There is associated soft tissue gas and edema. No acute fr acture or dislocation. Vascular sclerosis. IMPRESSION: Postsurgical changes from left hip hemiarthroplasty. Hardware appears intact with appropriate alignme nt. [facility], , 05/05/2024 2:16 PM
--- NOTE | 2024-05-05 14:22 | P.CONS ---
History of Present Illness - Reason for Consult Consult date: 05/04/24 Medical management Requesting physician: Karla Farris - Chief Complaint Status post a fall with a left subcapital femoral fracture - History of Present Illness HISTORY OF PRESENT ILLNESS: This is an 84-year-old male with a previous medical history significant for hypertension and hypertensive cardiovascular disease, mixed hyperlipidemia, diabetes mellitus type 2, with diabetic polyneuropathy, chronic kidney disease stage IIIb, history of prostate cancer status post radiation therapy currently in remission, patient was in his usual state of health till about today when he was trying to get out of the car going inside the garage and all of a sudden he did not wait for his walker he tripped with his left foot and landed on the left side, he had tremendous amount of pain, EMS was called and the patient was brought into the ER for evaluation he was found to have a left subcapital femoral neck fracture, he was seen and evaluated by orthopedic surgery who recommended for the patient to go for left hemiarthroplasty, patient does not appear to have any acute chest pain at this point in time, he has no shortness of breath, he appears quite drowsy because he was receiving Dilaudid, he denies any chest pain or any shortness of breath at this point in time, patient had a twelve-lead EKG did not show evidence of acute abnormalities, patient is going for a moderate risk surgery there is no contraindication for the surgical intervention, surgery may carry the risk of a few complications that the patient is aware of and willing to proceed. REVIEW OF SYSTEMS: Constitutional: No documented fever, no chills, no night sweats. No weight change. No weakness, fatigue or lethargy. No daytime sleepiness. EENT: No headache. No blurred vision or double vision, no loss of vision. No loss of Hearing, no ringing in the ears, no dizziness. No nasal drainage or congestion. No epistaxis. No sore throat. Lungs: No shortness of breath, no cough, no sputum production. No wheezing. Reports dyspnea with activity. Cardiovascular: No chest pain, no lower extremity edema. No palpitations. No paroxysmal nocturnal dyspnea. No orthopnea. No lightheadedness or dizziness. No syncopal episodes. Abdominal: Reports no abdominal pain. No nausea, vomiting. No diarrhea. No constipation. No bloody or tarry stools reports loss of appetite. Genitourinary: No dysuria, increased frequency, urgency. No urinary retention. Musculoskeletal: No myalgias. No muscle weakness, positive for gait dysfunction, positive for frequent falls. No back pain. No neck pain., left hip pain Integumentary: No wounds, no lesions. No rash or pruritus. No unusual bru ising. No change in hair or nails. Neurologic: No aphasia. No facial droop. No change in mentation. No head injury. No headache. No paralysis. No paresthesia. Psychiatric: No depression. No anxiety. No mood swings. Endocrine:positive for abnormal blood sugars. No weight change. PAST MEDICAL HISTORY: Hypertension and hypertensive cardiovascular disease. Mixed hyperlipidemia. Diabetes mellitus type 2. Diabetic polyneuropathy. Prostate cancer status post radiation. Chronic kidney disease stage IIIb. PAST SURGICAL HISTORY: Bilateral cataract surgery. Tonsillectomy. Left foot surgery. Colonoscopy 03/16/2019 SOCIAL HISTORY: Patient denies a history of smoking this time, he drinks wine on a nightly basis, he lives with his , uses a walker for ambulation. FAMILY HISTORY: Father at age 75 from [place], mother at age 95 from colon cancer. Patient had 4 brothers 1 from motor vehicle accident, 1 from [place] at the age of 62, and the other 1 is okay. Patient has 4 sisters alive and well, patient has 3 sons alive and well. PHYSICAL EXAMINATION: General: 84-year-old male laying down in bed in minimal distress. HEENT: Head is atraumatic, normocephalic, pupils were equal round reactive to light and recommendation, extraocular muscle movement were intact, sclera nonicteric, conjunctivae were pale, mucous membranes of the mouth are somewhat dry. Neck: Supple, no JVP, normal carotid upstroke bilaterally, no lymphadenopathy. Chest: Decreased breath sounds at the bases, few rhonchi, no expiratory wheezes, no chest wall tenderness, no intercostal retractions. Heart: First heart sound is normal, second heart sounds normal there is systolic ejection murmur 2/6 located in the left sternal border. Abdomen: Soft, nontender, nondistended, positive bowel sounds. Extremities: There is no edema no calf tenderness DP +2 bilaterally, left lower extremity is shorter with external rotation. Neurologic examination: Patient is awake alert and oriented x3, cranial nerves II-12 appear grossly intact, muscle power were 4 out of 5 in upper extremities and 3out of 5 in right lower extremity deep tendon reflexes normal bilaterally. ASSESSMENT AND PLAN: 1. Status post a fall with left subcapital hip fracture patient is scheduled to go for left hemiarthroplasty that would be done by tomorrow morning, patient was instructed to use the incentive spirometer, he was started on morphine 4 mg IV push every 4 hours as needed, start the patient on IV fluid in the form of normal saline at 75 cc an hour, continue current medication, follow- up with the patient very closely, patient is going for moderate risk surgery there is no contraindication for the proposed surgical intervention, surgery may carry the risks of a few complications that the patient is aware of and willing to proceed. 2. Acute kidney injury on chronic kidney disease stage IIIb due to acute tubular necrosis and vasomotor nephropathy. Start the patient on IV fluid in the form of normal saline at 75 cc an hour, monitor the patient CMP over the next 24 hours. 3. Hyponatremia due to hypovolemia. Status post IV fluid resuscitation repeat CMP tomorrow morning. 4. Hyperkalemia patient was given Lokelma 5 g orally times 1 repeat potassium tomorrow morning. 5. Hypertension and hypertensive cardiovascular disease. Continue patient on metoprolol 25 mg orally twice a day, monitor the patient blood pressure very closely. 6. Mixed hyperlipidemia. Continue rosuvastatin 40 mg once every day, Zetia 10 mg once every day, monitor lipid panel, keep LDL 55-70. 7. Diabetes mellitus type 2. Start the patient on metformin 500 mg orally twice every day, linagliptin 5 mg once every day, Farxiga 5 mg once every day, continue also with glimepiride 4 mg orally twice every day, patient will be started on sliding scale insulin. 8. Diabetic polyneuropathy. Aggressive blood glucose control. 9. Prostate cancer. Status post radiation therapy. 10. Chronic kidney disease stage IIIb. Appears to be stable at this time. 11. Medical debility. Physical therapy evaluation. 12. DVT prophylaxis. Patient will be started on aspirin 81 mg orally twice every day for 30 days postoperatively. 13. GI prophylaxis. Continue famotidine 20 mg orally twice every day. 14. Thank you for the consult we will follow the patient with you. Past Medical History Past Medical History: Coronary Artery Disease (CAD), Diabetes Mellitus, Hyperte nsion, Prostate Disorder Additional Past Medical History / Comment(s): bowel obstruction History of Any Multi-Drug Resistant Organisms: None Reported Past Surgical History: AICD, Bowel Resection, Cardiac Ablation, Cholecystectomy, Pacemaker Past Anesthesia/Blood Transfusion Reactions: Previous Problems w/ Anesthesia Additional Past Anesthesia/Blood Transfusion Reaction / Comm: per pt "last colonoscopy given sedative caused blood pressure to spike" Type of Cardiac Device: Permanent Pacemaker, AICD Device Placement Date:: 2008 Past Psychological History: No Psychological Hx Reported Past Alcohol Use History: Daily Past Drug Use History: None Reported - Past Family History Mother Family Medical History: Cancer Additional Family Medical History / Comment(s): at 95 cancer of rectum Medications and Allergies Home Medications Medication Instructions Recorded Confirmed Type Aspirin 81 mg PO DAILY 03/27/14 05/04/24 History Tamsulosin HCl [Flomax] 0.4 mg PO HS 03/27/14 05/04/24 History Glimepiride [Amaryl] 4 mg PO BID 03/11/19 05/04/24 History sitaGLIPtin PHOS/metFORMIN HCL 1 tab PO BID 03/11/19 05/04/24 History [Janumet 50-500 mg Tablet] Acetaminophen [Tylenol Arthritis] 1,300 mg PO DAILY 05/04/24 05/04/24 History Acetaminophen/Diphenhydramine 2 tab PO HS 05/04/24 05/04/24 History [Tylenol PM 500-25mg] Dapagliflozin Propanediol [Farxiga] 5 mg PO DAILY 05/04/24 05/04/24 History Docusate [Colace] 200 mg PO HS 05/04/24 05/04/24 History Ezetimibe [Zetia] 10 mg PO HS 05/04/24 05/04/24 History Famotidine [Pepcid] 20 mg PO DAILY PRN 05/04/24 05/04/24 History Loratadine [Claritin] 10 mg PO DAILY PRN 05/04/24 05/04/24 History Metoprolol Succinate (ER) [Toprol 25 mg PO BID 05/04/24 05/04/24 History Xl] Multivit-Minerals/FA/Lycopene 1 tab PO HS 05/04/24 05/04/24 History [One-A-Day Men's 50 Plus Tablet] Rosuvastatin Calcium [Crestor] 40 mg PO HS 05/04/24 05/04/24 History bisacodyL [Dulcolax] 5 mg PO DAILY PRN 05/04/24 05/04/24 History Allergies Allergy/AdvReac Type Severity Reaction Status Date / Time atorvastatin calcium AdvReac Rapid Verified 05/05/24 11:12 [From Lipitor] Heart Rate Physical Exam Vitals: Vital Signs Temp Pulse Resp BP Pulse Ox 05/04/24 10:15 97.2 F L 74 18 159/91 96 Intake and Output 05/03/24 05/04/24 05/04/24 22:59 06:59 14:59 Other: Weight 86.183 kg Results CBC & Chem 7: 05/04/24 13:47 05/04/24 13:47 Labs: Abnormal Lab Results - Last 24 Hours (Table) 05/04/24 05/04/24 Range/Units 13:47 13:47 RBC 4.14 L (4.30-5.90) m/uL Hgb 12.8 L (13.0-17.5) gm/dL Sodium 135 L (137-145) mmol/L Potassium 5.6 H (3.5-5.1) mmol/L Carbon Dioxide 20 L (22-30) mmol/L BUN 41 H (9-20) mg/dL Creatinine 1.49 H (0.66-1.25) mg/dL Glucose 115 H (74-99) mg/dL
[2024-05-05 16:18] LABS: ALT 31 U/L (4-49); AST 30 U/L (17-59); African American GFR (CKD) 50 (>60 ml/min/1.73 sqM); Albumin 3.7 g/dL (3.5-5.0); Albumin/Globulin Ratio 1.5; Alkaline Phosphatase 81 U/L (38-126); Anion Gap 14 mmol/L; Blood Urea Nitrogen 34 mg/dL (9-20); Calcium 9.2 mg/dL (8.4-10.2); Carbon Dioxide 15 mmol/L (22-30); Chloride 108 mmol/L (98-107); Globulin 2.5 g/dL; Glucose 159 mg/dL (74-99); Non-African American GFR(CKD) 43 (>60 ml/min/1.73 sqM); Sodium 137 mmol/L (137-145); Total Protein 6.2 g/dL (6.3-8.2)
--- NOTE | 2024-05-05 16:43 | CT ---
EXAMINATION TYPE: CT brain wo con CT DLP: 1291.4 mGycm, Automated exposure control for dose reduction was used. DATE OF EXAM: 05/05/2024 4:33 PM COMPARISON: CT brain from 05/04/2024 CLINICAL INDICATION:Male, 84 years old with history of slurred speech., slurred speech. TECHNIQUE: Brain: Multiple axial CT images of the brain were obtained without IV contrast. . Coronal and sagitta l reformats reviewed. FINDINGS: Brain: Extra-axial spaces: No abnormal extra-axial fluid collections. Ventricular system: Within normal limits Cerebral parenchyma: Cerebral atrophy. No acute intraparenchymal hemorrhage or mass effect. The juarez -white junction is well differentiated. Remote bilateral basal ganglia lacunar injuries. Scattered hy poattenuating areas are seen within the periventricular and subcortical white matter. Cerebellum: Unremarkable. Mass effect: No evidence of midline shift. Intracranial vasculature: Atherosclerotic calcifications of the intracranial vessels. Soft tissues: Normal. Calvarium/osseous structures: No depressed skull fracture. Paranasal sinuses and mastoid air cells: Partial opacification of the right mastoid air cells. Small osteoma within the right frontal sinus. The paranasal sinuses are clear. The left mastoid air cells a re clear. Visualized orbits: Bilateral aphakia IMPRESSION: 1. No acute intracranial process. Consider further evaluation with MRI if there is continued clinical concern. 2. Remote lacunar injuries along with nonspecific white matter changes likely secondary to chronic mi croangiopathy. 3. Right mastoid effusion. [facility], , 05/05/2024 4:40 PM
[2024-05-05 16:51] LABS: Glucose,Whole Blood 219 mg/dL (70-110)
[2024-05-05] MEDS: ONDANSETRON 4 MG/2 ML VIAL IVP PRN (17:12)
--- NOTE | 2024-05-05 17:25 | P.PN ---
Subjective Progress Note Date: 05/05/24 HISTORY OF PRESENT ILLNESS: This is an 84-year-old male with a previous medical history signifi cant for hypertension and hypertensive cardiovascular disease, mixed hyperlipidemia, diabetes mellitus type 2, with diabetic polyneuropathy, chronic kidney disease stage IIIb, history of prostate cancer status post radiation therapy currently in remission, patient was in his usual state of health till about today when he was trying to get out of the car going inside the garage and all of a sudden he did not wait for his walker he tripped with his left foot and landed on the left side, he had tremendous amount of pain, EMS was called and the patient was brought into the ER for evaluation he was found to have a left subcapital femoral neck fracture, he was seen and evaluated by orthopedic surg matheus who recommended for the patient to go for left hemiarthroplasty, patient does not appear to have any acute chest pain at this point in time, he has no shortness of breath, he appears quite drowsy because he was receiving Dilaudid, he denies any chest pain or any shortness of breath at this point in time, patient had a twelve-lead EKG did not show evidence of acute abnormalities, patient is going for a moderate risk surgery there is no contraindication for the surgical intervention, surgery may carry the risk of a few complications that the patient is aware of and willing to proceed. 05/05: Patient underwent left hemiarthroplasty that was done successfully by , patient seemed to have a bit of a dry mouth, the nursing staff thought that the patient is having an acute stroke at this point in time there was concern about that, therefore the patient was sent for CT scan of the brain without contrast for further evaluation I reviewed the CT scan myself I did not see any evidence of acute CVA at this point in time, await the final results from the radiologist, patient appears to be back to baseline, he does not appear to have any acute weakness in the upper or lower extremities, he seems to be back to baseline. Patient has a Valero catheter in place we will continue with that, physical therapy evaluation, incentive spirometer, pain management, follow-up with the patient very closely. REVIEW OF SYSTEMS: Constitutional: No documented fever, no chills, no night sweats. No weight change. No weakness, fatigue or lethargy. No daytime sleepiness. EENT: No headache. No blurred vision or double vision, no loss of vision. No loss of Hearing, no ringing in the ears, no dizziness. No nasal drainage or congestion. No epistaxis. No sore throat. Lungs: No shortness of breath, no cough, no sputum production. No wheezing. Reports dyspnea with activity. Cardiovascular: No chest pain, no lower extremity edema. No palpitations. No paroxysmal nocturnal dyspnea. No orthopnea. No lightheadedness or dizziness. No syncopal episodes. Abdominal: Reports no abdominal pain. No nausea, vomiting. No diarrhea. No constipation. No bloody or tarry stools reports loss of appetite. Genitourinary: No dysuria, increased frequency, urgency. No urinary retention. Musculoskeletal: No myalgias. No muscle weakness, positive for gait dysfunction, positive for frequent falls. No back pain. No neck pain., left hip pain Integumentary: No wounds, no lesions. No rash or pruritus. No unusual bruising. No change in hair or nails. Neurologic: No aphasia. No facial droop. No change in mentation. No head injury. No headache. No paralysis. No paresthesia. Psychiatric: No depression. No anxiety. No mood swings. Endocrine:positive for abnormal blood sugars. No weight change. PHYSICAL EXAMINATION: General: 84-year-old male laying down in bed in minimal distress. HEENT: Head is atraumatic, normocephalic, pupils were equal round reactive to light and recommendation, extraocular muscle movement were intact, sclera nonicteric, conjunctivae were pale, mucous membranes of the mouth are somewhat dry. Neck: Supple, no JVP, normal carotid upstroke bilaterally, no lymphadenopathy. Chest: Decreased breath sounds at the bases, few rhonchi, no expiratory wheezes, no chest wall tenderness, no intercostal retractions. Heart: First heart sound is normal, second heart sounds normal there is systolic ejection murmur 2/6 located in the left sternal border. Abdomen: Soft, nontender, nondistended, positive bowel sounds. Extremities: There is no edema no calf tenderness DP +2 bilaterally, left incision appears to be covered with dressing no drainage Neurologic examination: Patient is awake alert and oriented x3, cranial nerves II-12 appear grossly intact, muscle power were 4 out of 5 in upper extremities and 4out of 5 in bilateral lower extremities, deep tendon reflexes were normal. ASSESSMENT AND PLAN: 1. Postoperative day #0 status post left hemiarthroplasty. Patient was instructed about the usage of incentive spirometer to reduce incidence of at electasis and healthcare associated pneumonia, continue current pain management, continue DVT prophylaxis in the form of aspirin 325 mg orally twice every day, physical therapy evaluation, Valero catheter to be kept for another 24 hours then discontinue tomorrow morning, increase activity, we will follow-up with the patient very closely. 2. Possible slurred speech appears to be baseline for the patient, patient was sent for a CT scan of the brain without contrast that did not show evidence of a cute infarct or bleed. 3. Acute kidney injury on chronic kidney disease stage IIIb due to acute tu bular necrosis and vasomotor nephropathy. Start the patient on IV fluid in the form of normal saline at 75 cc an hour, monitor the patient CMP over the next 24 hours. 4. Hyponatremia due to hypovolemia. Status post IV fluid resuscitation repeat CMP tomorrow morning. 5. Hyperkalemia patient was given Lokelma 5 g orally times 1 repeat potassium tomorrow morning. 6. Hypertension and hypertensive cardiovascular disease. Continue patient on metoprolol 25 mg orally twice a day, monitor the patient blood pressure very closely. 7. Mixed hyperlipidemia. Continue rosuvastatin 40 mg once every day, Zetia 10 mg once every day, monitor lipid panel, keep LDL 55-70. 8. Diabetes mellitus type 2. Start the patient on metformin 500 mg orally twice every day, linagliptin 5 mg once every day, Farxiga 5 mg once every day, continue also with glimepiride 4 mg orally twice every day, patient will be started on sliding scale insulin. 9. Diabetic polyneuropathy. tight control of diabetes. 10. Prostate cancer. Status post radiation therapy. 11. Chronic kidney disease stage IIIb. Appears to be stable at this time. 12. Medical debility. Physical therapy evaluation. 13. DVT prophylaxis. Patient will be started on aspirin 81 mg orally twice every day for 30 days postoperatively. 14. GI prophylaxis. Continue famotidine 20 mg orally twice every day. We will follow the patient with you.15. Objective - Vital Signs Vital signs: Vital Signs Temp 97.4 F L 05/05/24 13:55 Pulse 85 05/05/24 14:10 Resp 17 05/05/24 14:10 BP 154/75 03/06/25 14:10 Pulse Ox 93 L 05/05/24 14:10 FiO2 Intake & Output 05/04/24 05/05/24 05/05/24 18:59 06:59 18:59 Intake Total 450 Output Total 225 500 100 Balance -225 -500 350 Weight 86.183 kg Intake: IV 450 Output: Urine 225 500 Estimated Blood Loss 100 Other: Voiding Method Indwelling Catheter Indwelling Catheter - Labs CBC & Chem 7: 05/04/24 13:47 05/05/24 15:15 Labs: Abnormal Lab Results - Last 24 Hours (Table) 05/04/24 05/04/24 05/05/24 Range/Units 16:28 19:56 05:27 POC Glucose (mg/dL) 197 H 153 H (70-110) mg/dL Hemoglobin A1c 7.0 H (<=6.0) % 05/05/24 05/05/24 Range/Units 06:08 11:08 POC Glucose (mg/dL) 124 H 141 H (70-110) mg/dL Hemoglobin A1c (<=6.0) %
[2024-05-05 20:28] LABS: Basophils # (A) 0.02 X 10*3/uL (0.00-0.10); Basophils % (A) 0.2 %; Eosinophils # (A) 0.04 X 10*3/uL (0.04-0.35); Eosinophils % (A) 0.4 %; HCT 38.8 % (39.6-50.0); HGB 12.2 g/dL (13.0-17.0); Lymphocytes # (A) 0.57 X 10*3/uL (0.90-5.00); MCH 31.1 pg (27.0-32.0); MCHC 31.4 g/dL (32.0-37.0); Mean Platelet Volume 10.4 FL (9.5-12.2); Monocytes # (A) 0.38 X 10*3/uL (0.20-1.00); NRBC Per 100 WBC 0 X 10*3/uL (0.00-0.01); Neutrophils # (A) 8.49 X 10*3/uL (1.80-7.70); Neutrophils % (A) 88.9 %; Platelet Count 194 X 10*3/uL (140-440); RBC 3.92 X 10*6/uL (4.40-5.60); RDW 13.3 % (11.5-14.5); WBC 9.55 X 10*3/uL (4.50-10.00)
[2024-05-05 20:40] LABS: Glucose,Whole Blood 193 mg/dL (70-110)
[2024-05-05] MEDS: ASPIRIN 325 MG TAB PO SCH (21:15)
[2024-05-06] MEDS: HYDROcodone/APAP 5-325MG 1 EACH TAB PO PRN (00:16)
[2024-05-06] MEDS: FAMOTIDINE 20 MG TAB PO PRN (05:59)
[2024-05-06 06:20] LABS: Glucose,Whole Blood 188 mg/dL (70-110)
[2024-05-06 08:24] LABS: ALT 24 U/L (10-49); AST 29 U/L (14-35); Albumin 3.3 g/dL (3.8-4.9); Albumin/Globulin Ratio 1.74 Ratio (1.60-3.17); Alkaline Phosphatase 65 U/L (41-126); BUN/Creat Ratio 21.53 Ratio (12.00-20.00); Blood Urea Nitrogen 32.3 mg/dL (9.0-27.0); Calcium 8.7 mg/dL (8.7-10.3); Carbon Dioxide 20.1 mmol/L (21.6-31.8); Chloride 107 mmol/L (96-109); Globulin 1.9 g/dL (1.6-3.3); Glucose 187 mg/dL (70-110); Potassium 5.2 mmol/L (3.5-5.5); Sodium 139 mmol/L (135-145); Total Bilirubin 0.4 mg/dL (0.3-1.2); Total Protein 5.2 g/dL (6.2-8.2)
--- NOTE | 2024-05-06 09:01 | P.PN ---
Progress Note - Text Progress Note Date: 05/06/24 Orthopedics: History of present illness: Patient is a very pleasant 84-year-old male who is seen examined at bedside for follow-up evaluation of his left hip. He is status post left hip hemiarthroplasty performed yesterday, 05/05/2024, for left femoral neck fracture. His pain is well-controlled postoperatively. He has an abductor pillow intact. Patient did have significant difficulty mobilization prior to his fall. He is planning for discharge to a rehabilitation facility. He is being seen by medicine for his multiple other medical diagnoses. They are planning for discharge to rehabilitation facility at the time of discharge. Patient is seen and examined at the bedside with his present. Physical Exam Hip Hemiarthroplasty: Status post surgical day number 1 Patient is examined lying in bed Patient is awake, alert, and oriented 3 Vital signs stable Good chest excursion with deep inspiration and expiration No signs or symptoms of DVT; no calf pain; calves are soft nontender Lower extremity cuffs not currently in place bilaterally Abductor pillow intact Dressing of the left hip is clean, dry, and intact; no erythema, purulence, or signs of infection No significant pain with palpation over the surgical site Assessment: Status post left hip hemiarthroplasty Left hip femoral neck fracture Left hip pain Inability to ambulate due to hip Status post fall Acute kidney injury on chronic kidney disease stage IIIb Hyponatremia Hyperkalemia Hypertension Hyperlipidemia Diabetes mellitus type 2 Diabetic polyneuropathy History prostate cancer plan: Plan: 1. Patient may continue to weight-bear as tolerated on the lower extremity with the assistance of a walker; patient may work with physical therapy to increase mobility and ambulation 2. Continue pain control; prescription is written, signed, and placed in the patient's chart for hydrocodone 7.5 mg / 325 mg, 1 tab, every 6 hours, as needed for acute pain, dispense #28. 3. Abductor pillow to remain in place at all times except while working with therapy 4. Medicine to continue following the patient for their other medical diagnoses 5. Continue with with anticoagulation therapy aspirin 325 mg; prescription is written for patient to take aspirin 325 mg twice daily over the next 30 days, dispense #60 at the time of discharge 6. We'll continue to follow the patient; patient will remain in the hospital until medically cleared and approved by insurance for discharge to a rehabilitation facility as early as tomorrow, 05/07/2024, or this coming 05/10/2024 7. Patient can follow-up with Chris Rivers PA-C or Dr. Fito Farris at [facility] in 2-3 weeks following discharge
[2024-05-06] MEDS: SENNOSIDES-DOCUSATE SODIUM 1 EACH TAB PO SCH (09:54)
[2024-05-06] MEDS: BENZOCAINE/MENTHOL LOZENG 1 EACH LOZENGE MUCOUS MEM PRN (10:02)
[2024-05-06 11:26] LABS: Glucose,Whole Blood 249 mg/dL (70-110)
[2024-05-06] MEDS: bisacodyL 5 MG TABLET.DR PO PRN (12:30)
[2024-05-06 16:36] LABS: Glucose,Whole Blood 222 mg/dL (70-110)
[2024-05-06 20:06] LABS: Glucose,Whole Blood 275 mg/dL (70-110)
[2024-05-07] MEDS: HYDROmorphone 0.5 MG/0.5 ML SYRINGE IVP PRN (01:13)
[2024-05-07 06:14] LABS: Glucose,Whole Blood 233 mg/dL (70-110)
--- NOTE | 2024-05-07 09:09 | P.PN ---
Subjective Progress Note Date: 05/06/24 HISTORY OF PRESENT ILLNESS: This is an 84-year-old male with a previous medical history signifi cant for hypertension and hypertensive cardiovascular disease, mixed hyperlipidemia, diabetes mellitus type 2, with diabetic polyneuropathy, chronic kidney disease stage IIIb, history of prostate cancer status post radiation therapy currently in remission, patient was in his usual state of health till about today when he was trying to get out of the car going inside the garage and all of a sudden he did not wait for his walker he tripped with his left foot and landed on the left side, he had tremendous amount of pain, EMS was called and the patient was brought into the ER for evaluation he was found to have a left subcapital femoral neck fracture, he was seen and evaluated by orthopedic surg matheus who recommended for the patient to go for left hemiarthroplasty, patient does not appear to have any acute chest pain at this point in time, he has no shortness of breath, he appears quite drowsy because he was receiving Dilaudid, he denies any chest pain or any shortness of breath at this point in time, patient had a twelve-lead EKG did not show evidence of acute abnormalities, patient is going for a moderate risk surgery there is no contraindication for the surgical intervention, surgery may carry the risk of a few complications that the patient is aware of and willing to proceed. 05/05: Patient underwent left hemiarthroplasty that was done successfully by , patient seemed to have a bit of a dry mouth, the nursing staff thought that the patient is having an acute stroke at this point in time there was concern about that, therefore the patient was sent for CT scan of the brain without contrast for further evaluation I reviewed the CT scan myself I did not see any evidence of acute CVA at this point in time, await the final results from the radiologist, patient appears to be back to baseline, he does not appear to have any acute weakness in the upper or lower extremities, he seems to be back to baseline. Patient has a Valero catheter in place we will continue with that, physical therapy evaluation, incentive spirometer, pain management, follow-up with the patient very closely. 05/06: Patient is laying down in bed in no apparent distress, he is feeling a lot better today, he continues to have some pain in the left hip area not as bad as it was. He is working with physical therapy, he continues to have a Valero catheter in place, we will try to discontinue Valero catheter, increase activity, continue to work with physical therapy, the plan is for the patient to go for subacute rehabilitation hopefully in the next 24 hours otherwise he will have to wait until Thursday morning. REVIEW OF SYSTEMS: Constitutional: No documented fever, no chills, no night sweats. No weight change. No weakness, fatigue or lethargy. No daytime sleepiness. EENT: No headache. No blurred vision or double vision, no loss of vision. No loss of Hearing, no ringing in the ears, no dizziness. No nasal drainage or congestion. No epistaxis. No sore throat. Lungs: No shortness of breath, no cough, no sputum production. No wheezing. Reports dyspnea with activity. Cardiovascular: No chest pain, no lower extremity edema. No palpitations. No paroxysmal nocturnal dyspnea. No orthopnea. No lightheadedness or dizziness. No syncopal episodes. Abdominal: Reports no abdominal pain. No nausea, vomiting. No diarrhea. No constipation. No bloody or tarry stools reports loss of appetite. Genitourinary: No dysuria, increased frequency, urgency. No urinary retention. Musculoskeletal: No myalgias. No muscle weakness, positive for gait dysfunction, positive for frequent falls. No back pain. No neck pain., left hip pain Integumentary: No wounds, no lesions. No rash or pruritus. No unusual bruising. No change in hair or nails. Neurologic: No aphasia. No facial droop. No change in mentation. No head injury. No headache. No paralysis. No paresthesia. Psychiatric: No depression. No anxiety. No mood swings. Endocrine:positive for abnormal blood sugars. No weight change. PHYSICAL EXAMINATION: General: 84-year-old male laying down in bed in minimal distress. HEENT: Head is atraumatic, normocephalic, pupils were equal round reactive to light and recommendation, extraocular muscle movement were intact, sclera nonicteric, conjunctivae were pale, mucous membranes of the mouth are somewhat dry. Neck: Supple, no JVP, normal carotid upstroke bilaterally, no lymphadenopathy. Chest: Decreased breath sounds at the bases, few rhonchi, no expiratory wheezes, no chest wall tenderness, no intercostal retractions. Heart: First heart sound is normal, second heart sounds normal there is systolic ejection murmur 2/6 located in the left sternal border. Abdomen: Soft, nontender, nondistended, positive bowel sounds. Extremities: There is no edema no calf tenderness DP +2 bilaterally, left incision appears to be covered with dressing no drainage Neurologic examination: Patient is awake alert and oriented x3, cranial nerves II-12 appear grossly intact, muscle power were 4 out of 5 in upper extremities and 4out of 5 in bilateral lower extremities, deep tendon reflexes were normal. ASSESSMENT AND PLAN: 1. Postoperative day #1 status post left hemiarthroplasty. Patient was instructed about the usage of incentive spirometer to reduce incidence of atelectasis and healthcare associated pneumonia, continue current pain management, continue DVT prophylaxis in the form of aspirin 325 mg orally twice every day, physical therapy evaluation, discontinue Valero catheter increase activity, continue pain management, follow-up with the patient very closely. 2. Possible slurred speech appears to be baseline for the patient, patient was sent for a CT scan of the brain without contrast that did not show evidence of acute infarct or bleed. 3. Acute kidney injury on chronic kidney disease stage IIIb due to acute tubular necrosis and vasomotor nephropathy. DC IV fluid. 4. Hyponatremia due to hypovolemia. Resolved discontinue IV fluid. 5. Hyperkalemia patient was given Lokelma 5 g orally times 1 repeat potassium tomorrow morning. Better 6. Hypertension and hypertensive cardiovascular disease. Continue patient on metoprolol 25 mg orally twice a day, monitor the patient blood pressure very closely. 7. Mixed hyperlipidemia. Continue rosuvastatin 40 mg once every day, Zetia 10 mg once every day, monitor lipid panel, keep LDL 55-70. 8. Diabetes mellitus type 2. Start the patient on metformin 500 mg orally twice every day, linagliptin 5 mg once every day, Farxiga 5 mg once every day, continue also with glimepiride 4 mg orally twice every day, patient will be started on sliding scale insulin. 9. Diabetic polyneuropathy. tight control of diabetes. 10. Prostate cancer. Status post radiation therapy. 11. Chronic kidney disease stage IIIb. Appears to be stable at this time. 12. Medical debility. Physical therapy evaluation. 13. DVT prophylaxis. Patient will be started on aspirin 81 mg orally twice every day for 30 days postoperatively. 14. GI prophylaxis. Continue famotidine 20 mg orally twice every day. 15. We will continue to follow-up with the patient very closely. Objective - Vital Signs Vital signs: Vital Signs Temp 97.6 F 05/06/24 13:42 Pulse 53 L 05/06/24 13:42 Resp 20 05/06/24 13:42 BP 116/62 05/06/24 13:42 Pulse Ox 94 L 05/06/24 13:42 FiO2 Intake & Output 05/05/24 05/06/24 05/06/24 18:59 06:59 18:59 Intake Total 450 Output Total 400 750 Balance 50 -750 Intake: IV 450 Output: Urine 300 750 Estimated Blood Loss 100 Other: Voiding Method Indwelling Catheter Indwelling Catheter Indwelling Catheter - Labs CBC & Chem 7: 05/05/24 15:15 05/06/24 05:15 Labs: Abnormal Lab Results - Last 24 Hours (Table) 05/05/24 05/05/24 05/05/24 Range/Units 15:15 15:15 16:50 RBC 3.92 L (4.40-5.60) X 10*6/uL Hgb 12.2 L (13.0-17.0) g/dL Hct 38.8 L (39.6-50.0) % MCV 99.0 H (80.0-97.0) FL MCHC 31.4 L (32.0-37.0) g/dL Immature Gran # 0.05 H (0.00-0.04) X 10*3/uL Neutrophils # 8.49 H (1.80-7.70) X 10*3/uL Lymphocytes # 0.57 L (0.90-5.00) X 10*3/uL Chloride 108 H (98-107) mmol/L Carbon Dioxide 15 L (22-30) mmol/L BUN 34 H (9-20) mg/dL Creatinine 1.47 H (0.66-1.25) mg/dL Est GFR (CKD-EPI) (>=60) BUN/Creatinine Ratio (12.00-20.00) Ratio Glucose 159 H (74-99) mg/dL POC Glucose (mg/dL) 219 H (70-110) mg/dL Total Protein 6.2 L (6.3-8.2) g/dL Albumin (3.8-4.9) g/dL 05/05/24 05/06/24 05/06/24 Range/Units 20:38 05:15 06:18 RBC (4.40-5.60) X 10*6/uL Hgb (13.0-17.0) g/dL Hct (39.6-50.0) % MCV (80.0-97.0) FL MCHC (32.0-37.0) g/dL Immature Gran # (0.00-0.04) X 10*3/uL Neutrophils # (1.80-7.70) X 10*3/uL Lymphocytes # (0.90-5.00) X 10*3/uL Chloride (98-107) mmol/L Carbon Dioxide 20.1 L (22-30) mmol/L BUN 32.3 H (9-20) mg/dL Creatinine (0.66-1.25) mg/dL Est GFR (CKD-EPI) 46 L (>=60) BUN/Creatinine Ratio 21.53 H (12.00-20.00) Ratio Glucose 187 H (74-99) mg/dL POC Glucose (mg/dL) 193 H 188 H (70-110) mg/dL Total Protein 5.2 L (6.3-8.2) g/dL Albumin 3.3 L (3.8-4.9) g/dL 05/06/24 Range/Units 11:24 RBC (4.40-5.60) X 10*6/uL Hgb (13.0-17.0) g/dL Hct (39.6-50.0) % MCV (80.0-97.0) FL MCHC (32.0-37.0) g/dL Immature Gran # (0.00-0.04) X 10*3/uL Neutrophils # (1.80-7.70) X 10*3/uL Lymphocytes # (0.90-5.00) X 10*3/uL Chloride (98-107) mmol/L Carbon Dioxide (22-30) mmol/L BUN (9-20) mg/dL Creatinine (0.66-1.25) mg/dL Est GFR (CKD-EPI) (>=60) BUN/Creatinine Ratio (12.00-20.00) Ratio Glucose (74-99) mg/dL POC Glucose (mg/dL) 249 H (70-110) mg/dL Total Protein (6.3-8.2) g/dL Albumin (3.8-4.9) g/dL
--- NOTE | 2024-05-07 09:54 | P.PN ---
Subjective Progress Note Date: 05/07/24 HISTORY OF PRESENT ILLNESS: This is an 84-year-old male with a previous medical history signifi cant for hypertension and hypertensive cardiovascular disease, mixed hyperlipidemia, diabetes mellitus type 2, with diabetic polyneuropathy, chronic kidney disease stage IIIb, history of prostate cancer status post radiation therapy currently in remission, patient was in his usual state of health till about today when he was trying to get out of the car going inside the garage and all of a sudden he did not wait for his walker he tripped with his left foot and landed on the left side, he had tremendous amount of pain, EMS was called and the patient was brought into the ER for evaluation he was found to have a left subcapital femoral neck fracture, he was seen and evaluated by orthopedic surg matheus who recommended for the patient to go for left hemiarthroplasty, patient does not appear to have any acute chest pain at this point in time, he has no shortness of breath, he appears quite drowsy because he was receiving Dilaudid, he denies any chest pain or any shortness of breath at this point in time, patient had a twelve-lead EKG did not show evidence of acute abnormalities, patient is going for a moderate risk surgery there is no contraindication for the surgical intervention, surgery may carry the risk of a few complications that the patient is aware of and willing to proceed. 05/05: Patient underwent left hemiarthroplasty that was done successfully by , patient seemed to have a bit of a dry mouth, the nursing staff thought that the patient is having an acute stroke at this point in time there was concern about that, therefore the patient was sent for CT scan of the brain without contrast for further evaluation I reviewed the CT scan myself I did not see any evidence of acute CVA at this point in time, await the final results from the radiologist, patient appears to be back to baseline, he does not appear to have any acute weakness in the upper or lower extremities, he seems to be back to baseline. Patient has a Valero catheter in place we will continue with that, physical therapy evaluation, incentive spirometer, pain management, follow-up with the patient very closely. 05/06: Patient is laying down in bed in no apparent distress, he is feeling a lot better today, he continues to have some pain in the left hip area not as bad as it was. He is working with physical therapy, he continues to have a Valero catheter in place, we will try to discontinue Valero catheter, increase activity, continue to work with physical therapy, the plan is for the patient to go for subacute rehabilitation hopefully in the next 24 hours otherwise he will have to wait until Thursday. 05/07: Patient sitting up in bed today in no apparent distress, he stated the pain is well-controlled today, he denies any chest pain, or shortness of breath, he has not had a bowel movement in 5 days, we will add lactulose 20 g orally twice every day, continue current treatment plan, continue stool softener, continue MiraLAX, increase activity with physical therapy, patient does not want his Valero catheter to be removed yet, because is not ambulatory yet patient became delirious yesterday, he was pulling on his bandages, likely related to pain management, will continue to monitor the patient very closely, physical therapy evaluation, likely to be discharged to [facility] on the [address] on Thursday. REVIEW OF SYSTEMS: Constitutional: No documented fever, no chills, no night sweats. No weight change. No weakness, fatigue or lethargy. No daytime sleepiness. EENT: No headache. No blurred vision or double vision, no loss of vision. No loss of Hearing, no ringing in the ears, no dizziness. No nasal drainage or congestion. No epistaxis. No sore throat. Lungs: No shortness of breath, no cough, no sputum production. No wheezing. Reports dyspnea with activity. Cardiovascular: No chest pain, no lower extremity edema. No palpitations. No paroxysmal nocturnal dyspnea. No orthopnea. No lightheadedness or dizziness. No syncopal episodes. Abdominal: Reports no abdominal pain. No nausea, vomiting. No diarrhea. No constipation. No bloody or tarry stools reports loss of appetite. Genitourinary: No dysuria, increased frequency, urgency. No urinary retention. Musculoskeletal: No myalgias. No muscle weakness, positive for gait dysfunction, positive for frequent falls. No back pain. No neck pain., left hip pain Integumentary: No wounds, no lesions. No rash or pruritus. No unusual bruising. No change in hair or nails. Neurologic: No aphasia. No facial droop. No change in mentation. No head injury. No headache. No paralysis. No paresthesia. Psychiatric: No depression. No anxiety. No mood swings. Endocrine:positive for abnormal blood sugars. No weight change. PHYSICAL EXAMINATION: General: 84-year-old male laying down in bed in minimal distress. HEENT: Head is atraumatic, normocephalic, pupils were equal round reactive to li ght and recommendation, extraocular muscle movement were intact, sclera nonicteric, conjunctivae were pale, mucous membranes of the mouth are somewhat dry. Neck: Supple, no JVP, normal carotid upstroke bilaterally, no lymphadenopathy. Chest: Decreased breath sounds at the bases, few rhonchi, no expiratory wheezes, no chest wall tenderness, no intercostal retractions. Heart: First heart sound is normal, second heart sounds normal there is systolic ejection murmur 2/6 located in the left sternal border. Abdomen: Soft, nontender, nondistended, positive bowel sounds. Extremities: There is no edema no calf tenderness DP +2 bilaterally, left incision appears to be covered with dressing no drainage Neurologic examination: Patient is awake alert and oriented x3, cranial nerves II-12 appear grossly intact, muscle power were 4 out of 5 in upper extremities and 4out of 5 in bilateral lower extremities, deep tendon reflexes were normal. ASSESSMENT AND PLAN: 1. Postoperative day #2 status post left hemiarthroplasty. Patient was instructed about the usage of incentive spirometer to reduce incidence of atelectasis and healthcare associated pneumonia, continue current pain management, continue DVT prophylaxis in the form of aspirin 325 mg orally twice every day, physical therapy evaluation, discontinue Valero catheter when the patient is more ambulatory continue to increase activity, continue pain management, follow-up with the patient very closely. 2. Possible slurred speech appears to be baseline for the patient, patient was sent for a CT scan of the brain without contrast that did not show evidence of acute infarct or bleed. 3. Acute kidney injury on chronic kidney disease stage IIIb due to acute tubular necrosis and vasomotor nephropathy. DC IV fluid. 4. Hyponatremia due to hypovolemia. Resolved discontinue IV fluid. 5. Hyperkalemia patient was given Lokelma 5 g orally times 1 repeat potassium tomorrow morning. Better 6. Hypertension and hypertensive cardiovascular disease. Continue patient on metoprolol 25 mg orally twice a day, monitor the patient blood pressure very closely. 7. Mixed hyperlipidemia. Continue rosuvastatin 40 mg once every day, Zetia 10 mg once every day, monitor lipid panel, keep LDL 55-70. 8. Diabetes mellitus type 2. Start the patient on metformin 500 mg orally twice every day, linagliptin 5 mg once every day, Farxiga 5 mg once every day, continue also with glimepiride 4 mg orally twice every day, patient will be started on sliding scale insulin. 9. Diabetic polyneuropathy. tight control of diabetes. 10. Prostate cancer. Status post radiation therapy. 11. Chronic kidney disease stage IIIb. Appears to be stable at this time. 12. Medical debility. Physical therapy evaluation. 13. DVT prophylaxis. Patient will be started on aspirin 81 mg orally twice every day for 30 days postoperatively. 14. GI prophylaxis. Continue famotidine 20 mg orally twice every day. 15. Constipation continue patient on Senokot 2 tablet at bedtime along with MiraLAX 17 g in 8 ounce of water, add lactulose 20 g orally twice every day. 16. Acute delirium likely related to pain management, discontinue Dilaudid, continue current pain management, encourage intake of fluid, reorient the patient, avoid benzodiazepine. Discontinue Benadryl. 17. Will continue to follow with you. Objective - Vital Signs Vital signs: Vital Signs Temp 98.2 F 05/07/24 01:08 Pulse 106 H 05/07/24 01:39 Resp 17 05/07/24 01:08 BP 135/81 05/07/24 01:08 Pulse Ox 96 05/07/24 01:08 FiO2 Intake & Output 05/06/24 05/07/24 05/07/24 18:59 06:59 18:59 Intake Total 1080 Output Total 355 4746 Balance -577 -1690 Intake: Oral 1080 Output: Urine 495 9445 Other: Voiding Method Indwelling Catheter Indwelling Catheter - Labs CBC & Chem 7: 05/05/24 15:15 05/06/24 05:15 Labs: Abnormal Lab Results - Last 24 Hours (Table) 05/06/24 05/06/24 05/06/24 Range/Units 11:24 16:35 20:04 POC Glucose (mg/dL) 249 H 222 H 275 H (70-110) mg/dL 05/07/24 Range/Units 06:12 POC Glucose (mg/dL) 233 H (70-110) mg/dL
[2024-05-07] MEDS: polyethylene glycoL 3350 17 GM POWD.PACK PO SCH (10:31)
--- NOTE | 2024-05-07 10:45 | P.PN ---
Subjective Progress Note Date: 05/07/24 This is an 84-year-old male who is status post left hip hemiarthroplasty. This is postoperative day #2 and patient is seen and evaluated at bedside today. Patient states that his pain is well-controlled and he was able to get out of bed for short time today. Patient denies any new complaints today. Objective - Vital Signs Vital signs: Vital Signs Temp 97.5 F L 05/07/24 07:37 Pulse 88 05/07/24 07:37 Resp 16 05/07/24 07:37 BP 119/57 05/07/24 07:37 Pulse Ox 92 L 05/07/24 07:37 FiO2 Intake & Output 05/06/24 05/07/24 05/07/24 18:59 06:59 18:59 Intake Total 1080 Output Total 575 2775 Balance -575 -1695 Intake: Oral 1080 Output: Urine 575 2775 Other: Voiding Method Indwelling Catheter Indwelling Catheter Indwelling Catheter - Exam Vital signs are stable. Patient is in no acute distress and is alert and oriented 3. Calf is soft and nontender to palpation. Dressing is clean, dry, and intact. Patient has full foot and ankle motion without pain or difficulty. Sensation intact. Neurovascular status and circulatory status are intact. - Labs CBC & Chem 7: 05/05/24 15:15 05/06/24 05:15 Labs: Abnormal Lab Results - Last 24 Hours (Table) 05/06/24 05/06/24 05/06/24 Range/Units 11:24 16:35 20:04 POC Glucose (mg/dL) 249 H 222 H 275 H (70-110) mg/dL 05/07/24 Range/Units 06:12 POC Glucose (mg/dL) 233 H (70-110) mg/dL Assessment and Plan (1) S/P hip hemiarthroplasty Current Visit: Yes Status: Acute Code(s): Z96.649 - PRESENCE OF UNSPECIFIED ARTIFICIAL HIP JOINT SNOMED Code(s): 074555487 (2) Hip fracture, left Current Visit: Yes Status: Acute Code(s): S72.002A - FRACTURE OF UNSP PART OF NECK OF LEFT FEMUR, INIT SNOMED Code(s): 074166909 Plan: Continue routine postop care and pain control. Continue hip dislocation precautions. Continue anticoagulation. Weightbearing as tolerated with a walker. Leave dressing in place for 7 days. Appreciate input from internal medicine. Anticipate discharge to ECF in the next 24-48 hours.
[2024-05-07 11:17] LABS: ALT 20 U/L (10-49); AST 26 U/L (14-35); Albumin 3.4 g/dL (3.8-4.9); Albumin/Globulin Ratio 1.62 Ratio (1.60-3.17); Alkaline Phosphatase 69 U/L (41-126); BUN/Creat Ratio 20.29 Ratio (12.00-20.00); Blood Urea Nitrogen 34.5 mg/dL (9.0-27.0); Calcium 8.9 mg/dL (8.7-10.3); Carbon Dioxide 15.9 mmol/L (21.6-31.8); Chloride 109 mmol/L (96-109); Globulin 2.1 g/dL (1.6-3.3); Glucose 259 mg/dL (70-110); Potassium 4.8 mmol/L (3.5-5.5); Sodium 138 mmol/L (135-145); Total Bilirubin 0.5 mg/dL (0.3-1.2); Total Protein 5.5 g/dL (6.2-8.2)
[2024-05-07 11:44] LABS: Glucose,Whole Blood 234 mg/dL (70-110)
[2024-05-07 14:58] LABS: Basophils % (A) 0 %; Eosinophils # (A) 0.2 k/uL (0-0.7); Eosinophils % (A) 3 %; HGB 10.6 gm/dL (13.0-17.5); Lymphocytes # (A) 1.2 k/uL (1.0-4.8); Lymphocytes % (A) 17 %; MCH 30.6 pg (25.0-35.0); MCHC 31.3 g/dL (31.0-37.0); Mean Platelet Volume 8.2; Monocytes # (A) 0.5 k/uL (0-1.0); Monocytes % (A) 7 %; Neutrophils % (A) 71 %; Platelet Count 191 k/uL (150-450); RBC 3.47 m/uL (4.30-5.90); RDW 13.6 % (11.5-15.5)
[2024-05-07] MEDS: ZINC OXIDE PASTE (Z-GUARD) 1 APPLIC TOPICAL PRN (15:59)
[2024-05-07 16:41] LABS: Glucose,Whole Blood 286 mg/dL (70-110)
[2024-05-07 20:45] LABS: Glucose,Whole Blood 247 mg/dL (70-110)
[2024-05-07] MEDS: LACTULOSE 20 GM/30 ML CUP PO SCH (21:57)
[2024-05-08 06:15] LABS: Glucose,Whole Blood 197 mg/dL (70-110)
[2024-05-08 09:31] LABS: Basophils # (A) 0.04 X 10*3/uL (0.00-0.10); Basophils % (A) 0.6 %; Eosinophils % (A) 2.9 %; HGB 11.1 g/dL (13.0-17.0); Lymphocytes # (A) 1.24 X 10*3/uL (0.90-5.00); Lymphocytes % (A) 18.1 %; MCH 31.1 pg (27.0-32.0); MCHC 32.6 g/dL (32.0-37.0); MCV 95.2 FL (80.0-97.0); Mean Platelet Volume 10.2 FL (9.5-12.2); Monocytes # (A) 0.69 X 10*3/uL (0.20-1.00); Monocytes % (A) 10.1 %; NRBC Per 100 WBC 0 X 10*3/uL (0.00-0.01); Neutrophils # (A) 4.65 X 10*3/uL (1.80-7.70); Platelet Count 185 X 10*3/uL (140-440); RBC 3.57 X 10*6/uL (4.40-5.60); RDW 13.5 % (11.5-14.5); WBC 6.84 X 10*3/uL (4.50-10.00)
--- NOTE | 2024-05-08 10:43 | P.PN ---
Subjective Progress Note Date: 05/08/24 This is an 84-year-old male who is status post left hip hemiarthroplasty. This is postoperative day #3 and patient is seen and evaluated at bedside today. Patient states that his pain is well-controlled and he denies any new complaints today. Objective - Vital Signs Vital signs: Vital Signs Temp 98.3 F 05/08/24 07:10 Pulse 89 05/08/24 07:10 Resp 16 05/08/24 07:10 BP 149/85 05/08/24 07:10 Pulse Ox 95 05/08/24 07:10 FiO2 Intake & Output 05/07/24 05/08/24 05/08/24 17:59 06:59 18:59 Intake Total Output Total Balance Intake: Oral Output: Urine Uretheral (Valero) Other: Voiding Method External Catheter # Voids - Exam Vital signs are stable. Patient is in no acute distress and is alert and oriented 3. Calf is soft and nontender to palpation. Dressing is clean, dry, and intact. Patient has full foot and ankle motion without pain or difficulty. Sensation intact. Neurovascular status and circulatory status are intact. - Labs CBC & Chem 7: 05/08/24 05:37 05/07/24 05:09 Labs: Abnormal Lab Results - Last 24 Hours (Table) 05/07/24 05/07/24 05/07/24 Range/Units 05:09 11:43 13:57 RBC 3.47 L (4.30-5.90) m/uL Hgb 10.6 L (13.0-17.5) gm/dL Hct 34.0 L (39.0-53.0) % Carbon Dioxide 15.9 L (21.6-31.8) mmol/L Anion Gap 13.10 H (4.00-12.00) mmol/L BUN 34.5 H (9.0-27.0) mg/dL Creatinine 1.7 H (0.6-1.5) mg/dL Est GFR (CKD-EPI) 39 L (>=60) BUN/Creatinine Ratio 20.29 H (12.00-20.00) Ratio Glucose 259 H (70-110) mg/dL POC Glucose (mg/dL) 234 H (70-110) mg/dL Total Protein 5.5 L (6.2-8.2) g/dL Albumin 3.4 L (3.8-4.9) g/dL 05/07/24 05/07/24 05/08/24 Range/Units 16:39 20:44 05:37 RBC 3.57 L (4.30-5.90) m/uL Hgb 11.1 L (13.0-17.5) gm/dL Hct 34.0 L (39.0-53.0) % Carbon Dioxide (21.6-31.8) mmol/L Anion Gap (4.00-12.00) mmol/L BUN (9.0-27.0) mg/dL Creatinine (0.6-1.5) mg/dL Est GFR (CKD-EPI) (>=60) BUN/Creatinine Ratio (12.00-20.00) Ratio Glucose (70-110) mg/dL POC Glucose (mg/dL) 286 H 247 H (70-110) mg/dL Total Protein (6.2-8.2) g/dL Albumin (3.8-4.9) g/dL 05/08/24 Range/Units 06:14 RBC (4.30-5.90) m/uL Hgb (13.0-17.5) gm/dL Hct (39.0-53.0) % Carbon Dioxide (21.6-31.8) mmol/L Anion Gap (4.00-12.00) mmol/L BUN (9.0-27.0) mg/dL Creatinine (0.6-1.5) mg/dL Est GFR (CKD-EPI) (>=60) BUN/Creatinine Ratio (12.00-20.00) Ratio Glucose (70-110) mg/dL POC Glucose (mg/dL) 197 H (70-110) mg/dL Total Protein (6.2-8.2) g/dL Albumin (3.8-4.9) g/dL Assessment and Plan (1) S/P hip hemiarthroplasty Current Visit: Yes Status: Acute Code(s): Z96.649 - PRESENCE OF UNSPECIFIED ARTIFICIAL HIP JOINT SNOMED Code(s): 338752031 (2) Hip fracture, left Current Visit: Yes Status: Acute Code(s): S72.002A - FRACTURE OF UNSP PART OF NECK OF LEFT FEMUR, INIT SNOMED Code(s): 214788290 Plan: Continue routine postop care and pain control. Continue hip dislocation precautions. Continue anticoagulation. Weightbearing as tolerated with a walker. Leave dressing in place for 7 days. Appreciate input from internal medicine. Anticipate discharge to ECF in the next 24-48 hours.
[2024-05-08 11:23] LABS: BUN/Creat Ratio 21.64 Ratio (12.00-20.00); Blood Urea Nitrogen 30.3 mg/dL (9.0-27.0); Carbon Dioxide 17.7 mmol/L (21.6-31.8); Chloride 109 mmol/L (96-109); Glucose 206 mg/dL (70-110); Potassium 4.8 mmol/L (3.5-5.5); Sodium 139 mmol/L (135-145)
[2024-05-08 11:24] LABS: ALT 63 U/L (10-49); AST 108 U/L (14-35); Albumin 3.2 g/dL (3.8-4.9); Albumin/Globulin Ratio 1.33 Ratio (1.60-3.17); Alkaline Phosphatase 80 U/L (41-126); Calcium 9.3 mg/dL (8.7-10.3); Globulin 2.4 g/dL (1.6-3.3); Total Bilirubin 0.7 mg/dL (0.3-1.2); Total Protein 5.6 g/dL (6.2-8.2)
[2024-05-08 11:24] LABS: Glucose,Whole Blood 209 mg/dL (70-110)
--- NOTE | 2024-05-08 12:08 | P.PN ---
Subjective Progress Note Date: 05/08/24 HISTORY OF PRESENT ILLNESS: This is an 84-year-old male with a previous medical history signifi cant for hypertension and hypertensive cardiovascular disease, mixed hyperlipidemia, diabetes mellitus type 2, with diabetic polyneuropathy, chronic kidney disease stage IIIb, history of prostate cancer status post radiation therapy currently in remission, patient was in his usual state of health till about today when he was trying to get out of the car going inside the garage and all of a sudden he did not wait for his walker he tripped with his left foot and landed on the left side, he had tremendous amount of pain, EMS was called and the patient was brought into the ER for evaluation he was found to have a left subcapital femoral neck fracture, he was seen and evaluated by orthopedic surg matheus who recommended for the patient to go for left hemiarthroplasty, patient does not appear to have any acute chest pain at this point in time, he has no shortness of breath, he appears quite drowsy because he was receiving Dilaudid, he denies any chest pain or any shortness of breath at this point in time, patient had a twelve-lead EKG did not show evidence of acute abnormalities, patient is going for a moderate risk surgery there is no contraindication for the surgical intervention, surgery may carry the risk of a few complications that the patient is aware of and willing to proceed. 05/05: Patient underwent left hemiarthroplasty that was done successfully by , patient seemed to have a bit of a dry mouth, the nursing staff thought that the patient is having an acute stroke at this point in time there was concern about that, therefore the patient was sent for CT scan of the brain without contrast for further evaluation I reviewed the CT scan myself I did not see any evidence of acute CVA at this point in time, await the final results from the radiologist, patient appears to be back to baseline, he does not appear to have any acute weakness in the upper or lower extremities, he seems to be back to baseline. Patient has a Valero catheter in place we will continue with that, physical therapy evaluation, incentive spirometer, pain management, follow-up with the patient very closely. 05/06: Patient is laying down in bed in no apparent distress, he is feeling a lot better today, he continues to have some pain in the left hip area not as bad as it was. He is working with physical therapy, he continues to have a Valero catheter in place, we will try to discontinue Valero catheter, increase activity, continue to work with physical therapy, the plan is for the patient to go for subacute rehabilitation hopefully in the next 24 hours otherwise he will have to wait until Thursday. 05/07: Patient sitting up in bed today in no apparent distress, he stated the pain is well-controlled today, he denies any chest pain, or shortness of breath, he has not had a bowel movement in 5 days, we will add lactulose 20 g orally twice every day, continue current treatment plan, continue stool softener, continue MiraLAX, increase activity with physical therapy, patient does not want his Valero catheter to be removed yet, because is not ambulatory yet patient became delirious yesterday, he was pulling on his bandages, likely related to pain management, will continue to monitor the patient very closely, physical therapy evaluation, likely to be discharged to [facility] on Thursday. 05/08: Patient sitting up in bed in no apparent distress, he seems to be back to baseline, he denies any chest pain, or shortness of breath, monitor the patient's symptoms very closely, patient Valero catheter need to be removed, increase activity level, continue work with physical therapy, likely the patient will be discharged to [facility] tomorrow morning for REVIEW OF SYSTEMS: Constitutional: No documented fever, no chills, no night sweats. No weight change. No weakness, fatigue or lethargy. No daytime sleepiness. EENT: No headache. No blurred vision or double vision, no loss of vision. No loss of Hearing, no ringing in the ears, no dizziness. No nasal drainage or congestion. No epistaxis. No sore throat. Lungs: No shortness of breath, no cough, no sputum production. No wheezing. Reports dyspnea with activity. Cardiovascular: No chest pain, no lower extremity edema. No palpitations. No paroxysmal nocturnal dyspnea. No orthopnea. No lightheadedness or dizziness. No syncopal episodes. Abdominal: Reports no abdominal pain. No nausea, vomiting. No diarrhea. No constipation. No bloody or tarry stools reports loss of appetite. Genitourinary: No dysuria, increased frequency, urgency. No urinary retention. Musculoskeletal: No myalgias. No muscle weakness, positive for gait dysfunction, positive for frequent falls. No back pain. No neck pain., left hip pain Integumentary: No wounds, no lesions. No rash or pruritus. No unusual bruising. No change in hair or nails. Neurologic: No aphasia. No facial droop. No change in mentation. No head injury. No headache. No paralysis. No paresthesia. Psychiatric: No depression. No anxiety. No mood swings. Endocrine:positive for abnormal blood sugars. No weight change. PHYSICAL EXAMINATION: General: 84-year-old male laying down in bed in minimal distress. HEENT: Head is atraumatic, normocephalic, pupils were equal round reactive to light and recommendation, extraocular muscle movement were intact, sclera nonicteric, conjunctivae were pale, mucous membranes of the mouth are somewhat dry. Neck: Supple, no JVP, normal carotid upstroke bilaterally, no lymphadenopathy. Chest: Decreased breath sounds at the bases, few rhonchi, no expiratory wheezes, no chest wall tenderness, no intercostal retractions. Heart: First heart sound is normal, second heart sounds normal there is systolic ejection murmur 2/6 located in the left sternal border. Abdomen: Soft, nontender, nondistended, positive bowel sounds. Extremities: There is no edema no calf tenderness DP +2 bilaterally, left incision appears to be covered with dressing no drainage Neurologic examination: Patient is awake alert and oriented x3, cranial nerves II-12 appear grossly intact, muscle power were 4 out of 5 in upper extremities and 4out of 5 in bilateral lower extremities, deep tendon reflexes were normal. ASSESSMENT AND PLAN: 1. Postoperative day #4 status post left hemiarthroplasty. Continue patient on incentive spirometer, continue to increase activity, continue current pain management, try to discontinue Valero catheter as the patient ability to ambulate improves. 2. Acute kidney injury on chronic kidney disease stage IIIb due to acute tubular necrosis and vasomotor nephropathy. Has resolved patient is back to baseline. 3. Hyponatremia due to hypovolemia. Resolved . 4. Hyperkalemia post Lokelma 5 g orally x 1 resolved. 5. Hypertension and hypertensive cardiovascular disease. Continue patient on metoprolol 25 mg orally twice a day, monitor the patient blood pressure very closely. 6. Mixed hyperlipidemia. Continue rosuvastatin 40 mg once every day, Zetia 10 mg once every day, monitor lipid panel, keep LDL 55-70. 7. Diabetes mellitus type 2. Start the patient on metformin 500 mg orally twice every day, linagliptin 5 mg once every day, Farxiga 5 mg once every day, continue also with glimepiride 4 mg orally twice every day, along with a sliding scale insulin 8. Diabetic polyneuropathy. tight control of diabetes. 9. Prostate cancer. Status post radiation therapy. 10. Medical debility. continue to work with physical therapy, patient will likely go to [facility] tomorrow morning. 11. DVT prophylaxis. Patient will be started on aspirin 81 mg orally twice every day for 30 days postoperatively. 12. GI prophylaxis. Continue famotidine 20 mg orally twice every day. 13. Constipation continue patient on Senokot 2 tablet at bedtime along with MiraLAX 17 g in 8 ounce of water, add lactulose 20 g orally twice every day. 14. Acute delirium likely related to pain management. Appears better now. 15. [facility] [place] tomorrow morning. Objective - Vital Signs Vital signs: Vital Signs Temp 98.3 F 05/08/24 07:10 Pulse 89 05/08/24 07:10 Resp 16 05/08/24 07:10 BP 149/85 05/08/24 07:10 Pulse Ox 95 05/08/24 07:10 FiO2 Intake & Output 05/07/24 05/08/24 05/08/24 17:59 06:59 18:59 Intake Total Output Total Balance Intake: Oral Output: Urine Uretheral (Valero) Other: Voiding Method External Catheter # Voids - Labs CBC & Chem 7: 05/07/24 13:57 05/07/24 05:09 Labs: Abnormal Lab Results - Last 24 Hours (Table) 05/07/24 05/07/24 05/07/24 Range/Units 05:09 11:43 13:57 RBC 3.47 L (4.30-5.90) m/uL Hgb 10.6 L (13.0-17.5) gm/dL Hct 34.0 L (39.0-53.0) % Carbon Dioxide 15.9 L (21.6-31.8) mmol/L Anion Gap 13.10 H (4.00-12.00) mmol/L BUN 34.5 H (9.0-27.0) mg/dL Creatinine 1.7 H (0.6-1.5) mg/dL Est GFR (CKD-EPI) 39 L (>=60) BUN/Creatinine Ratio 20.29 H (12.00-20.00) Ratio Glucose 259 H (70-110) mg/dL POC Glucose (mg/dL) 234 H (70-110) mg/dL Total Protein 5.5 L (6.2-8.2) g/dL Albumin 3.4 L (3.8-4.9) g/dL 05/07/24 05/07/24 05/08/24 Range/Units 16:39 20:44 06:14 RBC (4.30-5.90) m/uL Hgb (13.0-17.5) gm/dL Hct (39.0-53.0) % Carbon Dioxide (21.6-31.8) mmol/L Anion Gap (4.00-12.00) mmol/L BUN (9.0-27.0) mg/dL Creatinine (0.6-1.5) mg/dL Est GFR (CKD-EPI) (>=60) BUN/Creatinine Ratio (12.00-20.00) Ratio Glucose (70-110) mg/dL POC Glucose (mg/dL) 286 H 247 H 197 H (70-110) mg/dL Total Protein (6.2-8.2) g/dL Albumin (3.8-4.9) g/dL
[2024-05-08 16:42] LABS: Glucose,Whole Blood 232 mg/dL (70-110)
[2024-05-08 21:01] LABS: Glucose,Whole Blood 185 mg/dL (70-110)
[2024-05-09 06:15] LABS: Glucose,Whole Blood 217 mg/dL (70-110)
--- NOTE | 2024-05-09 08:33 | P.DS ---
Providers Date of admission: 05/04/24 13:25 Expected date of discharge: 05/09/24 Attending physician: Karla Farris Consults: 05/04/24 13:23 Consult Physician Routine Consulting Provider: Majo Galeana Consult Reason/Comments: medical care Do you want consulting provider notified?: Yes Primary care physician: Majo Galeana - Discharge Diagnosis(es) (1) Left hip pain Current Visit: Yes Status: Acute (2) Inability to ambulate due to hip Current Visit: Yes Status: Acute (3) Status post fall Current Visit: Yes Status: Acute (4) Hypertension Current Visit: Yes Status: Acute (5) Type 2 diabetes mellitus Current Visit: Yes Status: Acute (6) Diabetic neuropathy Current Visit: Yes Status: Acute (7) History of prostate cancer Current Visit: Yes Status: Acute (8) Chronic kidney disease Current Visit: Yes Status: Acute (9) Hyperlipidemia Current Visit: Yes Status: Acute (10) Hip fracture, left Current Visit: Yes Status: Acute (11) S/P hip hemiarthroplasty Current Visit: Yes Status: Acute Hospital Course: This is a pleasant 84-year-old male who presented with left hip femoral neck fracture and left hip pain status post fall. He was admitted for further treatment and evaluation. He underwent left hip hemiarthroplasty performed on 05/05/2024. He has been improving in regards to his left hip. The patient tolerated the procedure well and did well postoperatively. He is not currently complaining of any significant left hip pain. He is planning for discharge today to [facility]. Condition on day of discharge stable. Patient will be discharged when cleared by medicine. Patient is experiencing some heartburn this morning. He was given Pepcid. Medicine has been notified. Medicine has been following the patient for his other medical diagnoses during his admission. Patient currently denies any nausea, vomiting, fever, or chills. Patient is eating and voiding freely without difficulty. Patient may shower Optifoam dressing intact. Patient may remove Optifoam dressing in 7 days and shower without a dressing at that time. Patient should refrain from driving until at least after their first follow-up appointment in the office. Patient may weight-bear as tolerated on the left lower extremity with the assistance of a walker. Patient must keep abductor pillow in place while lying in bed. Pillow does not have to be utilized when sitting in a chair or working with therapy. A prescription has been written for prescription is written, signed, and placed in the patient's chart for hydrocodone 7.5 mg / 325 mg, 1 tab, every 6 hours, as needed for acute pain, dispense #28. He is given a prescription for aspirin 325 mg 1 tab twice daily, dispense #60. Prescription should be taken until completion for postoperative anticoagulation. Patient is also given a prescription for Senokot-S, 1 tab, twice daily, as needed for constipation, dispense #60. Patient's other medical diagnoses include acute kidney injury on chronic kidney disease stage IIIb, hypertension, hyperlipidemia, diabetes type 2, diabetic polyneuropathy, and history of prostate cancer. Physical Exam on day of discharge: Status post surgical day number 4 Patient is examined lying in bed Patient is awake, alert, and oriented 3 Vital signs stable Good chest excursion with deep inspiration and expiration No signs or symptoms of DVT; no calf pain; calves are soft nontender Lower extremity cuffs not currently in place bilaterally Dressing of the left hip is clean, dry, and intact; no erythema, purulence, or signs of infection No significant pain with palpation over the surgical site Procedures: Status post left hip hemiarthroplasty Patient Condition at Discharge: Stable Plan - Discharge Summary Discharge Rx Participant: No New Discharge Prescriptions: New Aspirin 325 mg PO BID #60 tab HYDROcodone/APAP 7.5-325MG [Galloway 7.5-325] 1 each PO Q6HR PRN #28 tab PRN Reason: Pain Sennosides-Docusate Sodium [Senokot-S] 1 tab PO BID PRN #60 tablet PRN Reason: Constipation No Action Aspirin 81 mg PO DAILY Tamsulosin HCl [Flomax] 0.4 mg PO HS Glimepiride [Amaryl] 4 mg PO BID sitaGLIPtin PHOS/metFORMIN HCL [Janumet 50-500 mg Tablet] 1 tab PO BID Loratadine [Claritin] 10 mg PO DAILY PRN PRN Reason: Allergy Symptoms in Summer Multivit-Minerals/FA/Lycopene [One-A-Day Men's 50 Plus Tablet] 1 tab PO HS Rosuvastatin Calcium [Crestor] 40 mg PO HS Metoprolol Succinate (ER) [Toprol Xl] 25 mg PO BID bisacodyL [Dulcolax] 5 mg PO DAILY PRN PRN Reason: Constipation Famotidine [Pepcid] 20 mg PO DAILY PRN PRN Reason: acid triage specialist Docusate [Colace] 200 mg PO HS Acetaminophen/Diphenhydramine [Tylenol PM 500-25mg] 2 tab PO HS Dapagliflozin Propanediol [Farxiga] 5 mg PO DAILY Acetaminophen [Tylenol Arthritis] 1,300 mg PO DAILY Ezetimibe [Zetia] 10 mg PO HS Discharge Medication List Aspirin 81 mg PO DAILY 03/27/14 [History] Tamsulosin HCl [Flomax] 0.4 mg PO HS 03/27/14 [History] Glimepiride [Amaryl] 4 mg PO BID 03/11/19 [History] sitaGLIPtin PHOS/metFORMIN HCL [Janumet 50-500 mg Tablet] 1 tab PO BID 03/11/19 [History] Acetaminophen [Tylenol Arthritis] 1,300 mg PO DAILY 05/04/24 [History] Acetaminophen/Diphenhydramine [Tylenol PM 500-25mg] 2 tab PO HS 05/04/24 [History] Dapagliflozin Propanediol [Farxiga] 5 mg PO DAILY 05/04/24 [History] Docusate [Colace] 200 mg PO HS 05/04/24 [History] Ezetimibe [Zetia] 10 mg PO HS 05/04/24 [History] Famotidine [Pepcid] 20 mg PO DAILY PRN 05/04/24 [History] Loratadine [Claritin] 10 mg PO DAILY PRN 05/04/24 [History] Metoprolol Succinate (ER) [Toprol Xl] 25 mg PO BID 05/04/24 [History] Multivit-Minerals/FA/Lycopene [One-A-Day Men's 50 Plus Tablet] 1 tab PO HS 05/04/24 [History] Rosuvastatin Calcium [Crestor] 40 mg PO HS 05/04/24 [History] bisacodyL [Dulcolax] 5 mg PO DAILY PRN 05/04/24 [History] Aspirin 325 mg PO BID #60 tab 05/06/24 [Rx] HYDROcodone/APAP 7.5-325MG [Galloway 7.5-325] 1 each PO Q6HR PRN #28 tab 05/06/24 [Rx] Sennosides-Docusate Sodium [Senokot-S] 1 tab PO BID PRN #60 tablet 05/09/24 [Rx] Follow up Appointment(s)/Referral(s): Majo Galeana MD [Primary Care Provider] - 1-2 days Chris Rivers PAC [PHYSICIAN SENIOR CREDIT OFFICER] - 2 Weeks (Patient may follow-up with Chris Rivers PA-C or Dr. Fito Farris at [facility] in 2-3 weeks following discharge. ) Activity/Diet/Wound Care/Special Instructions: 1. Keep Optifoam dressing over the left hip intact over the next 7 days 2. Patient may shower with dressing intact over the surgical site of the left hip 3. Patient may shower without a dressing intact after 7 days his incision site remains clean and dry 4. Weight-bear as tolerated left lower extremity with a walker with assistance 5. Patient must keep abductor pillow intact while lying in bed 5. Take medications as prescribed 6. Any questions or concerns patient may contact [facility] at [phone] Discharge Disposition: TRANSFER TO SNF/ECF
[2024-05-09 08:40] LABS: ALT 173 U/L (10-49); AST 175 U/L (14-35); Albumin 3.3 g/dL (3.8-4.9); Albumin/Globulin Ratio 1.43 Ratio (1.60-3.17); Alkaline Phosphatase 93 U/L (41-126); Blood Urea Nitrogen 29.1 mg/dL (9.0-27.0); Calcium 9.2 mg/dL (8.7-10.3); Carbon Dioxide 20.1 mmol/L (21.6-31.8); Chloride 107 mmol/L (96-109); Globulin 2.3 g/dL (1.6-3.3); Glucose 201 mg/dL (70-110); Sodium 141 mmol/L (135-145); Total Bilirubin 0.8 mg/dL (0.3-1.2); Total Protein 5.6 g/dL (6.2-8.2)
[2024-05-09 09:01] LABS: Basophils # (A) 0.05 X 10*3/uL (0.00-0.10); Basophils % (A) 0.7 %; Eosinophils # (A) 0.22 X 10*3/uL (0.04-0.35); Eosinophils % (A) 3.2 %; HCT 37.1 % (39.6-50.0); HGB 11.8 g/dL (13.0-17.0); Lymphocytes # (A) 1.08 X 10*3/uL (0.90-5.00); Lymphocytes % (A) 15.9 %; MCH 31.1 pg (27.0-32.0); MCHC 31.8 g/dL (32.0-37.0); MCV 97.9 FL (80.0-97.0); Mean Platelet Volume 10.5 FL (9.5-12.2); Monocytes # (A) 0.73 X 10*3/uL (0.20-1.00); Monocytes % (A) 10.8 %; NRBC Per 100 WBC 0.03 X 10*3/uL (0.00-0.01); Neutrophils # (A) 4.69 X 10*3/uL (1.80-7.70); Neutrophils % (A) 69.1 %; Platelet Count 227 X 10*3/uL (140-440); RBC 3.79 X 10*6/uL (4.40-5.60); RDW 13.5 % (11.5-14.5); WBC 6.79 X 10*3/uL (4.50-10.00)
[2024-05-09] MEDS: bisacodyL 10 MG SUPP RECTAL STA (10:05)
--- NOTE | 2024-05-09 11:09 | XR ---
EXAMINATION TYPE: XR abdomen 2V DATE OF EXAM: 05/09/2024 10:33 AM COMPARISON: 07/09/2022 CLINICAL INDICATION: Male, 84 years old with history of abd pain; [facility] TECHNIQUE: Two views of the abdomen were obtained. FINDINGS: Moderate amount stool throughout the colon. Gaseous dilation of bowel with bowel dilated up to 5.0 cm. No abnormal calcifications are present. Fecal material and gas are demonstrated throughou t the colon and rectum. Cardiac conduction leads terminating in the right ventricle and atrium. Left hip arthroplasty present. Mild degeneration changes right hip. Gaseous dilation abdomen. IMPRESSION: Gaseous dilation abdomen was thought to be large bowel. Further evaluation with CT imaging with oral contrast recommended. Correlate for ileus versus obstruction. [facility], , 05/09/2024 11:07 AM
[2024-05-09 11:41] LABS: Glucose,Whole Blood 237 mg/dL (70-110)
[2024-05-09] MEDS: IOPAMIDOL CONTRAST (ORAL USE) VIAL PO PRN (13:48)
--- NOTE | 2024-05-09 15:49 | CT ---
EXAMINATION TYPE: CT abdomen pelvis wo con CT DLP: 773.1 mGycm, Automated exposure control for dose reduction was used. DATE OF EXAM: 05/09/2024 3:25 PM COMPARISON: Abdominal radiograph 05/09/2024, CT abdomen and pelvis 04/29/2021 CLINICAL INDICATION:Male, 84 years old with history of R/O bowel obstruction; TECHNIQUE: Standard CT of the abdomen and pelvis without IV or oral contrast. Lack of IV or oral co ntrast limits evaluation of solid and hollow organ viscera. Coronal and sagittal reformats were perfo rmed. FINDINGS: LOWER CHEST: Posterior dependent subsegmental atelectasis is noted. Cardiomegaly. Partial visualizati on of cardiac pacemaking leads. Moderate coronary artery calcifications. No pericardial effusion. Cir cumferential wall thickening of the distal esophagus. ABDOMEN LIVER: Scattered punctate calcified granulomas throughout the liver. GALLBLADDER AND BILE DUCTS: The gallbladder is surgically absent. No biliary ductal dilatation. PANCREAS: Unremarkable noncontrast appearance. SPLEEN: Scattered calcified granulomas. ADRENAL GLANDS: Unremarkable noncontrast appearance.. KIDNEYS AND URETERS: No evidence of hydronephrosis or renal calculus. Renal vascular calcifications. Nonspecific bilateral perinephric fat stranding. No definitive ureteral calculus. PELVIS BLADDER: Underdistended but grossly unremarkable within limitations of streak artifact from left hip prosthesis. REPRODUCTIVE: Coarse calcifications of the prostate gland are identified. Calcification of the vas de ferens which suggests diabetes. ABDOMEN & PELVIS STOMACH AND BOWEL: The stomach appears unremarkable. There is a dilated appearance of the duodenum wi th air-fluid level. Dilated appearance of the jejunum with air-fluid level. There is decompressed ile um identified. Postsurgical changes of the small bowel with anastomosis in the right lower quadrant. Chronically dilated bowel at the anastomosis measuring up to 8.5 cm. No focal transition point identi fied. Distal colonic diverticulosis without evidence for acute diverticulitis. Mild amount of stool i s present throughout the colon and rectum.No pneumatosis. No small bowel feces sign. No mesenteric ed basim. The appendix is within normal limits. PERITONEUM: No evidence of pneumoperitoneum or free fluid. VASCULATURE: Moderate atherosclerotic calcifications are present throughout the abdominal aorta and i ts branches. No evidence of aortic aneurysm. MUSCULOSKELETAL: Diffuse bone demineralization. No acute osseous abnormalities. Postsurgical changes from total left hip arthroplasty. There is some surrounding soft tissue gas and edema from recent antonio wiliam. Moderate multilevel degenerative disc disease of the lower lumbar spine. LYMPH NODES: No gross evidence for lymphadenopathy. SOFT TISSUE/ABDOMINAL WALL: Unremarkable IMPRESSION: 1. Postsurgical changes with chronically dilated jejunum near the anastomosis within the right lower quadrant. There is small bowel proximal to this without focal transition point. Findings are favored to represent ileus versus partial small bowel obstruction. Consider further evaluation with small bow el follow-through as clinically indicated. 2. Postsurgical changes from recent left hip arthroplasty. 3. Colonic diverticulosis without evidence for acute diverticulitis. 4. Sequelae of prior granulomatous disease. 5. Circumferential wall thickening of the visualized distal esophagus. May relate to esophagitis/GERD . [facility], , 05/09/2024 3:47 PM
[2024-05-09 16:41] LABS: Glucose,Whole Blood 188 mg/dL (70-110)
--- NOTE | 2024-05-09 18:41 | P.PN ---
Subjective Progress Note Date: 05/09/24 HISTORY OF PRESENT ILLNESS: This is an 84-year-old male with a previous medical history signifi cant for hypertension and hypertensive cardiovascular disease, mixed hyperlipidemia, diabetes mellitus type 2, with diabetic polyneuropathy, chronic kidney disease stage IIIb, history of prostate cancer status post radiation therapy currently in remission, patient was in his usual state of health till about today when he was trying to get out of the car going inside the garage and all of a sudden he did not wait for his walker he tripped with his left foot and landed on the left side, he had tremendous amount of pain, EMS was called and the patient was brought into the ER for evaluation he was found to have a left subcapital femoral neck fracture, he was seen and evaluated by orthopedic surg matheus who recommended for the patient to go for left hemiarthroplasty, patient does not appear to have any acute chest pain at this point in time, he has no shortness of breath, he appears quite drowsy because he was receiving Dilaudid, he denies any chest pain or any shortness of breath at this point in time, patient had a twelve-lead EKG did not show evidence of acute abnormalities, patient is going for a moderate risk surgery there is no contraindication for the surgical intervention, surgery may carry the risk of a few complications that the patient is aware of and willing to proceed. 05/05: Patient underwent left hemiarthroplasty that was done successfully by , patient seemed to have a bit of a dry mouth, the nursing staff thought that the patient is having an acute stroke at this point in time there was concern about that, therefore the patient was sent for CT scan of the brain without contrast for further evaluation I reviewed the CT scan myself I did not see any evidence of acute CVA at this point in time, await the final results from the radiologist, patient appears to be back to baseline, he does not appear to have any acute weakness in the upper or lower extremities, he seems to be back to baseline. Patient has a Valero catheter in place we will continue with that, physical therapy evaluation, incentive spirometer, pain management, follow-up with the patient very closely. 05/06: Patient is laying down in bed in no apparent distress, he is feeling a lot better today, he continues to have some pain in the left hip area not as bad as it was. He is working with physical therapy, he continues to have a Valero catheter in place, we will try to discontinue Valero catheter, increase activity, continue to work with physical therapy, the plan is for the patient to go for subacute rehabilitation hopefully in the next 24 hours otherwise he will have to wait until Thursday. 05/07: Patient sitting up in bed today in no apparent distress, he stated the pain is well-controlled today, he denies any chest pain, or shortness of breath, he has not had a bowel movement in 5 days, we will add lactulose 20 g orally twice every day, continue current treatment plan, continue stool softener, continue MiraLAX, increase activity with physical therapy, patient does not want his Valero catheter to be removed yet, because is not ambulatory yet patient became delirious yesterday, he was pulling on his bandages, likely related to pain management, will continue to monitor the patient very closely, physical therapy evaluation, likely to be discharged to [facility] on Thursday. 05/08: Patient sitting up in bed in no apparent distress, he seems to be back to baseline, he denies any chest pain, or shortness of breath, monitor the patient's symptoms very closely, patient Valero catheter need to be removed, increase activity level, continue work with physical therapy, likely the patient will be discharged to [facility] tomorrow morning . 05/09: Patient sitting up in bed is complain of increased heartburn, abdominal distention, increased nausea and vomiting, patient not able to keep his medication down, abdominal x-ray showed evidence of ileus it was recommended for the patient to have a CT scan of the abdomen with oral contrast, general surgery consultation will be obtained, hold off the discharge for the next 24 hours. REVIEW OF SYSTEMS: Constitutional: No documented fever, no chills, no night sweats. No weight change. No weakness, fatigue or lethargy. No daytime sleepiness. EENT: No headache. No blurred vision or double vision, no loss of vision. No loss of Hearing, no ringing in the ears, no dizziness. No nasal drainage or congestion. No epistaxis. No sore throat. Lungs: No shortness of breath, no cough, no sputum production. No wheezing. Reports dyspnea with activity. Cardiovascular: No chest pain, no lower extremity edema. No palpitations. No paroxysmal nocturnal dyspnea. No orthopnea. No lightheadedness or dizziness. No syncopal episodes. Abdominal: Reports no abdominal pain. No nausea, vomiting. No diarrhea. No constipation. No bloody or tarry stools reports loss of appetite. Genitourinary: No dysuria, increased frequency, urgency. No urinary retention. Musculoskeletal: No myalgias. No muscle weakness, positive for gait dysfunction, positive for frequent falls. No back pain. No neck pain., left hip pain Integumentary: No wounds, no lesions. No rash or pruritus. No unusual bruising. No change in hair or nails. Neurologic: No aphasia. No facial droop. No change in mentation. No head injury. No headache. No paralysis. No paresthesia. Psychiatric: No depression. No anxiety. No mood swings. Endocrine:positive for abnormal blood sugars. No weight change. PHYSICAL EXAMINATION: General: 84-year-old male laying down in bed in minimal distress. HEENT: Head is atraumatic, normocephalic, pupils were equal round reactive to light and recommendation, extraocular muscle movement were intact, sclera nonicteric, conjunctivae were pale, mucous membranes of the mouth are somewhat dry. Neck: Supple, no JVP, normal carotid upstroke bilaterally, no lymphadenopathy. Chest: Decreased breath sounds at the bases, few rhonchi, no expiratory wheezes, no chest wall tenderness, no intercostal retractions. Heart: First heart sound is normal, second heart sounds normal there is systolic ejection murmur 2/6 located in the left sternal border. Abdomen: Soft, nontender, nondistended, positive bowel sounds. Extremities: There is no edema no calf tenderness DP +2 bilaterally, left incision appears to be covered with dressing no drainage Neurologic examination: Patient is awake alert and oriented x3, cranial nerves II-12 appear grossly intact, muscle power were 4 out of 5 in upper extremities and 4out of 5 in bilateral lower extremities, deep tendon reflexes were normal. ASSESSMENT AND PLAN: 1. Postoperative day #5 status post left hemiarthroplasty. Continue patient on incentive spirometer, continue to increase activity, continue current pain management, try to discontinue Valero catheter as the patient ability to ambulate improves. 2. Acute kidney injury on chronic kidney disease stage IIIb due to acute tubular necrosis and vasomotor nephropathy. Has resolved patient is back to baseline. 3. Hyponatremia due to hypovolemia. Resolved . 4. Hyperkalemia post Lokelma 5 g orally x 1 resolved. 5. Ileus due to recent surgical intervention CT scan of the abdomen pelvis with oral contrast, Dulcolax suppository, keep nothing per mouth until evaluated by general surgery. 6. Hypertension and hypertensive cardiovascular disease. Continue patient on metoprolol 25 mg orally twice a day, monitor the patient blood pressure very closely. 7. Mixed hyperlipidemia. Continue rosuvastatin 40 mg once every day, Zetia 10 mg once every day, monitor lipid panel, keep LDL 55-70. 8. Diabetes mellitus type 2. Start the patient on metformin 500 mg orally twi ce every day, linagliptin 5 mg once every day, Farxiga 5 mg once every day, continue also with glimepiride 4 mg orally twice every day, along with a sliding scale insulin 9. Diabetic polyneuropathy. tight control of diabetes. 10. Prostate cancer. Status post radiation therapy. 11. Medical debility. continue to work with physical therapy, patient will likely go to [facility] the [place] tomorrow morning. 12. DVT prophylaxis. Patient will be started on aspirin 81 mg orally twice every day for 30 days postoperatively. 13. GI prophylaxis. Continue famotidine 20 mg orally twice every day. 14. Constipation continue patient on Senokot 2 tablet at bedtime along with MiraLAX 17 g in 8 ounce of water, add lactulose 20 g orally twice every day. 15. Acute delirium likely related to pain management. Appears better now. 16. [facility] [place] tomorrow morning. Objective - Vital Signs Vital signs: Vital Signs Temp 97.8 F 05/09/24 00:44 Pulse 89 05/09/24 00:44 Resp 14 05/09/24 00:44 BP 138/77 05/09/24 00:44 Pulse Ox 96 05/09/24 00:44 FiO2 Intake & Output 05/08/24 05/09/24 05/09/24 18:59 06:59 18:59 Intake Total 1620 Output Total 500 1250 Balance -500 370 Intake: Oral 1620 Output: Urine 500 1250 Other: Voiding Method External Catheter External Catheter # Bowel Movements 1 1 - Labs CBC & Chem 7: 05/09/24 03:45 05/09/24 03:45 Labs: Abnormal Lab Results - Last 24 Hours (Table) 05/08/24 05/08/24 05/08/24 Range/Units 05:37 05:37 11:23 RBC 3.57 L (4.40-5.60) X 10*6/uL Hgb 11.1 L (13.0-17.0) g/dL Hct 34.0 L (39.6-50.0) % Carbon Dioxide 17.7 L (21.6-31.8) mmol/L Anion Gap 12.30 H (4.00-12.00) mmol/L BUN 30.3 H (9.0-27.0) mg/dL Est GFR (CKD-EPI) 50 L (>=60) BUN/Creatinine Ratio 21.64 H (12.00-20.00) Ratio Glucose 206 H (70-110) mg/dL POC Glucose (mg/dL) 209 H (70-110) mg/dL AST 108 H (14-35) U/L ALT 63 H (10-49) U/L Total Protein 5.6 L (6.2-8.2) g/dL Albumin 3.2 L (3.8-4.9) g/dL Albumin/Globulin Ratio 1.33 L (1.60-3.17) Ratio 05/08/24 05/08/24 05/09/24 Range/Units 16:41 20:59 06:14 RBC (4.40-5.60) X 10*6/uL Hgb (13.0-17.0) g/dL Hct (39.6-50.0) % Carbon Dioxide (21.6-31.8) mmol/L Anion Gap (4.00-12.00) mmol/L BUN (9.0-27.0) mg/dL Est GFR (CKD-EPI) (>=60) BUN/Creatinine Ratio (12.00-20.00) Ratio Glucose (70-110) mg/dL POC Glucose (mg/dL) 232 H 185 H 217 H (70-110) mg/dL AST (14-35) U/L ALT (10-49) U/L Total Protein (6.2-8.2) g/dL Albumin (3.8-4.9) g/dL Albumin/Globulin Ratio (1.60-3.17) Ratio
[2024-05-09 20:40] LABS: Glucose,Whole Blood 194 mg/dL (70-110)
[2024-05-10 06:08] LABS: Glucose,Whole Blood 206 mg/dL (70-110)
[2024-05-10] MEDS: bisacodyL 10 MG SUPP RECTAL STA (08:42)
[2024-05-10] MEDS: PANTOPRAZOLE 40 MG/10 ML VIAL IVP SCH (08:42)
[2024-05-10 08:54] LABS: ALT 168 U/L (10-49); AST 119 U/L (14-35); Albumin 3.3 g/dL (3.8-4.9); Albumin/Globulin Ratio 1.38 Ratio (1.60-3.17); Alkaline Phosphatase 97 U/L (41-126); BUN/Creat Ratio 25.12 Ratio (12.00-20.00); Basophils # (A) 0.03 X 10*3/uL (0.00-0.10); Basophils % (A) 0.4 %; Blood Urea Nitrogen 42.7 mg/dL (9.0-27.0); Carbon Dioxide 20.2 mmol/L (21.6-31.8); Chloride 104 mmol/L (96-109); Eosinophils # (A) 0.16 X 10*3/uL (0.04-0.35); Globulin 2.4 g/dL (1.6-3.3); Glucose 190 mg/dL (70-110); HCT 34.7 % (39.6-50.0); HGB 11.2 g/dL (13.0-17.0); Lymphocytes # (A) 1.06 X 10*3/uL (0.90-5.00); Lymphocytes % (A) 13.5 %; MCH 31.1 pg (27.0-32.0); MCHC 32.3 g/dL (32.0-37.0); MCV 96.4 FL (80.0-97.0); Mean Platelet Volume 9.9 FL (9.5-12.2); Monocytes # (A) 1.02 X 10*3/uL (0.20-1.00); NRBC Per 100 WBC 0 X 10*3/uL (0.00-0.01); Neutrophils # (A) 5.55 X 10*3/uL (1.80-7.70); Neutrophils % (A) 70.7 %; Platelet Count 250 X 10*3/uL (140-440); Potassium 5.4 mmol/L (3.5-5.5); RDW 13.4 % (11.5-14.5); Sodium 139 mmol/L (135-145); Total Bilirubin 0.7 mg/dL (0.3-1.2); Total Protein 5.7 g/dL (6.2-8.2); WBC 7.85 X 10*3/uL (4.50-10.00)
--- NOTE | 2024-05-10 09:44 | P.PN ---
Subjective Progress Note Date: 05/10/24 HISTORY OF PRESENT ILLNESS: This is an 84-year-old male with a previous medical history signifi cant for hypertension and hypertensive cardiovascular disease, mixed hyperlipidemia, diabetes mellitus type 2, with diabetic polyneuropathy, chronic kidney disease stage IIIb, history of prostate cancer status post radiation therapy currently in remission, patient was in his usual state of health till about today when he was trying to get out of the car going inside the garage and all of a sudden he did not wait for his walker he tripped with his left foot and landed on the left side, he had tremendous amount of pain, EMS was called and the patient was brought into the ER for evaluation he was found to have a left subcapital femoral neck fracture, he was seen and evaluated by orthopedic surg matheus who recommended for the patient to go for left hemiarthroplasty, patient does not appear to have any acute chest pain at this point in time, he has no shortness of breath, he appears quite drowsy because he was receiving Dilaudid, he denies any chest pain or any shortness of breath at this point in time, patient had a twelve-lead EKG did not show evidence of acute abnormalities, patient is going for a moderate risk surgery there is no contraindication for the surgical intervention, surgery may carry the risk of a few complications that the patient is aware of and willing to proceed. 05/05: Patient underwent left hemiarthroplasty that was done successfully by , patient seemed to have a bit of a dry mouth, the nursing staff thought that the patient is having an acute stroke at this point in time there was concern about that, therefore the patient was sent for CT scan of the brain without contrast for further evaluation I reviewed the CT scan myself I did not see any evidence of acute CVA at this point in time, await the final results from the radiologist, patient appears to be back to baseline, he does not appear to have any acute weakness in the upper or lower extremities, he seems to be back to baseline. Patient has a Valero catheter in place we will continue with that, physical therapy evaluation, incentive spirometer, pain management, follow-up with the patient very closely. 05/06: Patient is laying down in bed in no apparent distress, he is feeling a lot better today, he continues to have some pain in the left hip area not as bad as it was. He is working with physical therapy, he continues to have a Valero catheter in place, we will try to discontinue Valero catheter, increase activity, continue to work with physical therapy, the plan is for the patient to go for subacute rehabilitation hopefully in the next 24 hours otherwise he will have to wait until Thursday. 05/07: Patient sitting up in bed today in no apparent distress, he stated the pain is well-controlled today, he denies any chest pain, or shortness of breath, he has not had a bowel movement in 5 days, we will add lactulose 20 g orally twice every day, continue current treatment plan, continue stool softener, continue MiraLAX, increase activity with physical therapy, patient does not want his Valero catheter to be removed yet, because is not ambulatory yet patient became delirious yesterday, he was pulling on his bandages, likely related to pain management, will continue to monitor the patient very closely, physical therapy evaluation, likely to be discharged to [facility] on Thursday. 05/08: Patient sitting up in bed in no apparent distress, he seems to be back to baseline, he denies any chest pain, or shortness of breath, monitor the patient's symptoms very closely, patient Valero catheter need to be removed, increase activity level, continue work with physical therapy, likely the patient will be discharged to [facility] tomorrow morning . 05/09: Patient sitting up in bed is complain of increased heartburn, abdominal distention, increased nausea and vomiting, patient not able to keep his medication down, abdominal x-ray showed evidence of ileus it was recommended for the patient to have a CT scan of the abdomen with oral contrast, general surgery consultation will be obtained, hold off the discharge for the next 24 hours. 05/10: Patient did have a large bowel movement yesterday is feeling better today, patient will be maintained on current treatment plan, he is to have another Dulcolax suppository and we will continue with same await Surgery input before he can get out of here REVIEW OF SYSTEMS: Constitutional: No documented fever, no chills, no night sweats. No weight change. No weakness, fatigue or lethargy. No daytime sleepiness. EENT: No headache. No blurred vision or double vision, no loss of vision. No loss of Hearing, no ringing in the ears, no dizziness. No nasal drainage or congestion. No epistaxis. No sore throat. Lungs: No shortness of breath, no cough, no sputum production. No wheezing. Reports dyspnea with activity. Cardiovascular: No chest pain, no lower extremity edema. No palpitations. No paroxysmal nocturnal dyspnea. No orthopnea. No lightheadedness or dizziness. No syncopal episodes. Abdominal: Reports no abdominal pain. No nausea, vomiting. No diarrhea. No constipation. No bloody or tarry stools reports loss of appetite. Genitourinary: No dysuria, increased frequency, urgency. No urinary retention. Musculoskeletal: No myalgias. No muscle weakness, positive for gait dysfuncti on, positive for frequent falls. No back pain. No neck pain., left hip pain Integumentary: No wounds, no lesions. No rash or pruritus. No unusual bruising. No change in hair or nails. Neurologic: No aphasia. No facial droop. No change in mentation. No head injury. No headache. No paralysis. No paresthesia. Psychiatric: No depression. No anxiety. No mood swings. Endocrine:positive for abnormal blood sugars. No weight change. PHYSICAL EXAMINATION: General: 84-year-old male laying down in bed in minimal distress. HEENT: Head is atraumatic, normocephalic, pupils were equal round reactive to light and recommendation, extraocular muscle movement were intact, sclera nonicteric, conjunctivae were pale, mucous membranes of the mouth are somewhat dry. Neck: Supple, no JVP, normal carotid upstroke bilaterally, no lymphadenopathy. Chest: Decreased breath sounds at the bases, few rhonchi, no expiratory wheezes, no chest wall tenderness, no intercostal retractions. Heart: First heart sound is normal, second heart sounds normal there is systolic ejection murmur 2/6 located in the left sternal border. Abdomen: Soft, nontender, nondistended, positive bowel sounds. Extremities: There is no edema no calf tenderness DP +2 bilaterally, left incision appears to be covered with dressing no drainage Neurologic examination: Patient is awake alert and oriented x3, cranial nerves II-12 appear grossly intact, muscle power were 4 out of 5 in upper extremities and 4out of 5 in bilateral lower extremities, deep tendon reflexes were normal. ASSESSMENT AND PLAN: 1. Postoperative day #6 status post left hemiarthroplasty. Continue patient on incentive spirometer, continue to increase activity, continue current pain management, continue physical therapy continue current treatment plan. 2. Acute kidney injury on chronic kidney disease stage IIIb due to acute tubular necrosis and vasomotor nephropathy. Has resolved patient is back to baseline. 3. Hyponatremia due to hypovolemia. Resolved . 4. Hyperkalemia post Lokelma 5 g orally x 1 resolved. 5. Ileus due to recent surgical intervention reviewed CT scan of the abdomen pelvis that showed ileus surgical consultation still pending, patient did have a small bowel movement, needs to be cleared by surgery before discharge 6. Hypertension and hypertensive cardiovascular disease. Continue patient on metoprolol 25 mg orally twice a day, monitor the patient blood pressure very closely. 7. Mixed hyperlipidemia. Continue rosuvastatin 40 mg once every day, Zetia 10 mg once every day, monitor lipid panel, keep LDL 55-70. 8. Diabetes mellitus type 2. Start the patient on metformin 500 mg orally twice every day, linagliptin 5 mg once every day, Farxiga 5 mg once every day, continue also with glimepiride 4 mg orally twice every day, along with a sliding scale insulin 9. Diabetic polyneuropathy. tight control of diabetes. 10. Prostate cancer. Status post radiation therapy. 11. Medical debility. continue to work with physical therapy, patient will likely go to [facility] [place] tomorrow morning. 12. DVT prophylaxis. Patient will be started on aspirin 81 mg orally twice every day for 30 days postoperatively. 13. GI prophylaxis. Continue famotidine 20 mg orally twice every day. 14. Constipation continue patient on Senokot 2 tablet at bedtime along with MiraLAX 17 g in 8 ounce of water, add lactulose 20 g orally twice every day. 15. Acute delirium likely related to pain management. Appears better now. 16. Discharge to [facility] if cleared by surgery Objective - Vital Signs Vital signs: Vital Signs Temp 98.4 F 05/10/24 01:14 Pulse 74 05/10/24 01:14 Resp 16 05/10/24 01:14 BP 153/78 05/10/24 01:14 Pulse Ox 96 05/10/24 01:14 FiO2 Intake & Output 05/09/24 05/09/24 05/10/24 06:59 18:59 06:59 Intake Total 1620 Output Total 1250 750 400 Balance 370 -750 -400 Intake: Oral 1620 Output: Urine 1250 750 400 Other: Voiding Method External Catheter External Catheter External Catheter # Bowel Movements 1 1 - Labs CBC & Chem 7: 05/10/24 03:12 05/10/24 03:12 Labs: Abnormal Lab Results - Last 24 Hours (Table) 05/09/24 05/09/24 05/09/24 Range/Units 03:45 03:45 11:28 RBC 3.79 L (4.40-5.60) X 10*6/uL Hgb 11.8 L (13.0-17.0) g/dL Hct 37.1 L (39.6-50.0) % MCV 97.9 H (80.0-97.0) FL MCHC 31.8 L (32.0-37.0) g/dL NRBC/100 WBC Diff 0.03 H (0.00-0.01) X 10*3/uL Carbon Dioxide 20.1 L (21.6-31.8) mmol/L Anion Gap 13.90 H (4.00-12.00) mmol/L BUN 29.1 H (9.0-27.0) mg/dL Est GFR (CKD-EPI) 46 L (>=60) Glucose 201 H (70-110) mg/dL POC Glucose (mg/dL) 237 H (70-110) mg/dL AST 175 H (14-35) U/L ALT 173 H (10-49) U/L Total Protein 5.6 L (6.2-8.2) g/dL Albumin 3.3 L (3.8-4.9) g/dL Albumin/Globulin Ratio 1.43 L (1.60-3.17) Ratio 05/09/24 05/09/24 05/10/24 Range/Units 16:36 20:39 06:07 RBC (4.40-5.60) X 10*6/uL Hgb (13.0-17.0) g/dL Hct (39.6-50.0) % MCV (80.0-97.0) FL MCHC (32.0-37.0) g/dL NRBC/100 WBC Diff (0.00-0.01) X 10*3/uL Carbon Dioxide (21.6-31.8) mmol/L Anion Gap (4.00-12.00) mmol/L BUN (9.0-27.0) mg/dL Est GFR (CKD-EPI) (>=60) Glucose (70-110) mg/dL POC Glucose (mg/dL) 188 H 194 H 206 H (70-110) mg/dL AST (14-35) U/L ALT (10-49) U/L Total Protein (6.2-8.2) g/dL Albumin (3.8-4.9) g/dL Albumin/Globulin Ratio (1.60-3.17) Ratio
[2024-05-10 11:30] LABS: Glucose,Whole Blood 212 mg/dL (70-110)
[2024-05-10] MEDS: INSULIN GLARGINE (LANTUS) 100 UNIT/ML SYR SQ SCH (11:33)
--- NOTE | 2024-05-10 12:23 | P.PN ---
Progress Note - Text Progress Note Date: 05/10/24 Postoperative day #5 Patient is seen and examined today at bedside. His hip is doing well. He has been more mobile. His says he is not putting all of his weight on his leg. The patient has some pain around the surgical site as expected. Pain is being controlled with medication. He feels like his abdomen is doing better. He had a large bowel movement yesterday. He said he had another bowel movement today. He denies any nausea or vomiting Physical Exam Afebrile with stable vital signs Abdomen is distended but somewhat improved from yesterday. He denies any pain. No tenderness or rebound. Chest has good excursion deep and space expiration The incision site is clean dry and intact. No erythema there is no purulence. His thigh and calf are soft nontender Extremities have not had neurologic change from prior to surgery. Has sustained dorsiflexion plantarflexion EHL intact Calves and thighs were soft nontender without evidence of DVT. Assessment/Plan Postoperative day #5 status post left hip hemiarthroplasty for acute femoral neck fracture status post fall Patient is progressing as expected from the surgery in terms of his hip. We will continue to increase the patient's mobilization with therapy. It is okay for him to mobilize and weight-bear as tolerated on left lower extremity. He should continue his dislocation precautions and hip precautions. We will continue pain control with oral or IV medications. Patient had been developing potential postop ileus. This seems to be resolving. He had a bowel movement yesterday and today. His abdomen is still somewhat distended but he feels that is improving. Surgeries been consulted for evaluation. If it continues to make improvement he will likely be able to be discharged home tomorrow.
--- NOTE | 2024-05-10 14:38 | XR ---
EXAMINATION TYPE: XR chest 1V portable DATE OF EXAM: 05/10/2024 2:34 PM COMPARISON: Chest radiographs from 05/04/2024 CLINICAL INDICATION: Male, 84 years old with history of thoracentesis; TECHNIQUE: XR chest 1V portable Frontal view of the chest. FINDINGS: Lungs/Pleura: There is no evidence of pleural effusion, focal consolidation, or pneumothorax. Pulmonary vascularity: Unremarkable. Heart/mediastinum: Cardiomediastinal silhouette is enlarged and stable. Atherosclerotic calcificatio ns are seen in the aorta. Two lead cardiac conduction device overlying the left hemithorax with lead tips projecting over the right ventricle and right atrium. Musculoskeletal: No acute osseous pathology. IMPRESSION: Significant pleural effusion identified. No acute cardiopulmonary disease/process. No evidence for pn eumothorax. [facility], , 05/10/2024 2:36 PM
--- NOTE | 2024-05-10 16:17 | P.GSCN ---
History of Present Illness Consult date: 05/10/24 Reason for Consult: Abdominal distention History of present illness: 84-year-old male hospitalized because of recent fall with hip fracture and subsequent repair. During the postoperative period the patient experienced abdominal bloating and subsequent vomiting. Was having apparently significant vomiting the last 2 days. Better today. Not eating much. Apparently regular diet was being provided. He was drinking some. He has been passing flatus and had some bowel movements overnight. Denies bloating however family believes he is still bloated. Belching some. Appetite is diminished. Was having mild abdominal discomfort and that is gone today. He had a CAT scan performed showing significant gastric and proximal small bowel dilation. The patient has a proximal to mid jejunal anastomosis from a previous obstruction with some chronic dilation at the anastomotic site dating back to 2020. It is more prominent at this time along with dilation proximal to that as described. Etiology for the patient's previous bowel resection was thought to be an obstruction. This was apparently performed 20 years ago or so at [place]. Review of Systems The patient denies any acute changes in vision or hearing, no dysphagia or odynophagia, no chest pain or shortness of breath, no dysuria or hematuria, no h eadache, no runny nose, no rectal bleeding or melena, no unexplained weight loss Past Medical History Past Medical History: Coronary Artery Disease (CAD), Diabetes Mellitus, Hypertension, Prostate Disorder Additional Past Medical History / Comment(s): bowel obstruction History of Any Multi-Drug Resistant Organisms: None Reported Past Surgical History: AICD, Bowel Resection, Cardiac Ablation, Cholecystectomy, Pacemaker Past Anesthesia/Blood Transfusion Reactions: Previous Problems w/ Anesthesia Additional Past Anesthesia/Blood Transfusion Reaction / Comm: per pt "last colonoscopy given sedative caused blood pressure to spike" Type of Cardiac Device: Permanent Pacemaker, AICD Device Placement Date:: 2008 Past Psychological History: No Psychological Hx Reported Past Alcohol Use History: Daily Past Drug Use History: None Reported - Past Family History Mother Family Medical History: Cancer Additional Family Medical History / Comment(s): at 95 cancer of rectum Medications and Allergies Home Medications Medication Instructions Recorded Confirmed Type Tamsulosin HCl [Flomax] 0.4 mg PO HS 03/27/14 05/04/24 History Glimepiride [Amaryl] 4 mg PO BID 03/11/19 05/04/24 History sitaGLIPtin PHOS/metFORMIN HCL 1 tab PO BID 03/11/19 05/04/24 History [Janumet 50-500 mg Tablet] Acetaminophen [Tylenol Arthritis] 1,300 mg PO DAILY 05/04/24 05/04/24 History Acetaminophen/Diphenhydramine 2 tab PO HS 05/04/24 05/04/24 History [Tylenol PM 500-25mg] Dapagliflozin Propanediol [Farxiga] 5 mg PO DAILY 05/04/24 05/04/24 History Docusate [Colace] 200 mg PO HS 05/04/24 05/04/24 History Ezetimibe [Zetia] 10 mg PO HS 05/04/24 05/04/24 History Famotidine [Pepcid] 20 mg PO DAILY PRN 05/04/24 05/04/24 History Loratadine [Claritin] 10 mg PO DAILY PRN 05/04/24 05/04/24 History Metoprolol Succinate (ER) [Toprol 25 mg PO BID 05/04/24 05/04/24 History XL] Multivit-Minerals/FA/Lycopene 1 tab PO HS 05/04/24 05/04/24 History [One-A-Day Men's 50 Plus Tablet] Rosuvastatin Calcium [Crestor] 40 mg PO HS 05/04/24 05/04/24 History bisacodyL [Dulcolax] 5 mg PO DAILY PRN 05/04/24 05/04/24 History Aspirin 325 mg PO BID #60 tab 05/06/24 Rx HYDROcodone/APAP 7.5-325MG [[place] 1 each PO Q6HR PRN #28 tab 05/06/24 Rx 7.5-325] INSULIN LISPRO (HumaLOG) [HumaLOG] 0 unit SQ ACHS each 05/09/24 Rx Lactulose [Cephulac] 20 gm PO BID ml 05/09/24 Rx Sennosides-Docusate Sodium 1 tab PO BID PRN #60 tablet 05/09/24 Rx [Senokot-S] polyethylene glycoL 3350 [Miralax] 17 gm PO DAILY packet 05/09/24 Rx Allergies Allergy/AdvReac Type Severity Reaction Status Date / Time atorvastatin calcium AdvReac Rapid Verified 05/05/24 11:12 [From Lipitor] Heart Rate Surgical - Exam Vital Signs Temp Pulse Resp BP Pulse Ox 97.2 F L 74 18 159/91 96 05/04/24 10:15 05/04/24 10:15 05/04/24 10:15 05/04/24 10:15 05/04/24 10:15 Physical exam: General: Well-developed, well-nourished HEENT: Normocephalic, sclerae nonicteric Abdomen: Nontender, mild distention, mild tympany Extremities: No edema Neuro: Alert and oriented Results - Labs 05/10/24 03:12 05/10/24 03:12 Abnormal Lab Results - Last 24 Hours (Table) 05/09/24 05/09/24 05/10/24 Range/Units 16:36 20:39 03:12 RBC 3.60 L (4.40-5.60) X 10*6/uL Hgb 11.2 L (13.0-17.0) g/dL Hct 34.7 L (39.6-50.0) % Monocytes # 1.02 H (0.20-1.00) X 10*3/uL Carbon Dioxide (21.6-31.8) mmol/L Anion Gap (4.00-12.00) mmol/L BUN (9.0-27.0) mg/dL Creatinine (0.6-1.5) mg/dL Est GFR (CKD-EPI) (>=60) BUN/Creatinine Ratio (12.00-20.00) Ratio Glucose (70-110) mg/dL POC Glucose (mg/dL) 188 H 194 H (70-110) mg/dL AST (14-35) U/L ALT (10-49) U/L Total Protein (6.2-8.2) g/dL Albumin (3.8-4.9) g/dL Albumin/Globulin Ratio (1.60-3.17) Ratio 05/10/24 05/10/24 05/10/24 Range/Units 03:12 06:07 11:27 RBC (4.40-5.60) X 10*6/uL Hgb (13.0-17.0) g/dL Hct (39.6-50.0) % Monocytes # (0.20-1.00) X 10*3/uL Carbon Dioxide 20.2 L (21.6-31.8) mmol/L Anion Gap 14.80 H (4.00-12.00) mmol/L BUN 42.7 H (9.0-27.0) mg/dL Creatinine 1.7 H (0.6-1.5) mg/dL Est GFR (CKD-EPI) 39 L (>=60) BUN/Creatinine Ratio 25.12 H (12.00-20.00) Ratio Glucose 190 H (70-110) mg/dL POC Glucose (mg/dL) 206 H 212 H (70-110) mg/dL AST 119 H (14-35) U/L ALT 168 H (10-49) U/L Total Protein 5.7 L (6.2-8.2) g/dL Albumin 3.3 L (3.8-4.9) g/dL Albumin/Globulin Ratio 1.38 L (1.60-3.17) Ratio Diabetes panel 05/10/24 Range/Units 03:12 Sodium 139 (135-145) mmol/L Potassium 5.4 (3.5-5.5) mmol/L Chloride 104 (96-109) mmol/L Carbon Dioxide 20.2 L (21.6-31.8) mmol/L BUN 42.7 H (9.0-27.0) mg/dL Creatinine 1.7 H (0.6-1.5) mg/dL Glucose 190 H (70-110) mg/dL Calcium 9.0 (8.7-10.3) mg/dL AST 119 H (14-35) U/L ALT 168 H (10-49) U/L Alkaline Phosphatase 97 (41-126) U/L Total Protein 5.7 L (6.2-8.2) g/dL Albumin 3.3 L (3.8-4.9) g/dL Calcium panel 05/10/24 Range/Units 03:12 Calcium 9.0 (8.7-10.3) mg/dL Albumin 3.3 L (3.8-4.9) g/dL Pituitary panel 05/10/24 Range/Units 03:12 Sodium 139 (135-145) mmol/L Potassium 5.4 (3.5-5.5) mmol/L Chloride 104 (96-109) mmol/L Carbon Dioxide 20.2 L (21.6-31.8) mmol/L BUN 42.7 H (9.0-27.0) mg/dL Creatinine 1.7 H (0.6-1.5) mg/dL Glucose 190 H (70-110) mg/dL Calcium 9.0 (8.7-10.3) mg/dL Adrenal panel 05/10/24 Range/Units 03:12 Sodium 139 (135-145) mmol/L Potassium 5.4 (3.5-5.5) mmol/L Chloride 104 (96-109) mmol/L Carbon Dioxide 20.2 L (21.6-31.8) mmol/L BUN 42.7 H (9.0-27.0) mg/dL Creatinine 1.7 H (0.6-1.5) mg/dL Glucose 190 H (70-110) mg/dL Calcium 9.0 (8.7-10.3) mg/dL Total Bilirubin 0.7 (0.3-1.2) mg/dL AST 119 H (14-35) U/L ALT 168 H (10-49) U/L Alkaline Phosphatase 97 (41-126) U/L Total Protein 5.7 L (6.2-8.2) g/dL Albumin 3.3 L (3.8-4.9) g/dL Assessment and Plan (1) Ileus Narrative/Plan: 84-year-old male with abdominal distention and vomiting after recent hip surgery. Paralytic ileus most likely diagnosis at this time. Begin clear liquid diet only for now. Increase activity as tolerated. Recheck abdominal films tomorrow. If symptoms persist or recur we will plan small bowel follow- through. Current Visit: Yes Status: Acute Code(s): K56.7 - ILEUS, UNSPECIFIED SNOMED Code(s): 691868038
[2024-05-10 16:43] LABS: Glucose,Whole Blood 153 mg/dL (70-110)
[2024-05-10] MEDS: SODIUM CHLORIDE 0.9% 1,000 ML IV SCH (20:57)
[2024-05-10 21:03] LABS: Glucose,Whole Blood 152 mg/dL (70-110)
[2024-05-11 06:23] LABS: Glucose,Whole Blood 161 mg/dL (70-110)
[2024-05-11] MEDS: PANTOPRAZOLE 40 MG TABLET PO SCH (06:45)
[2024-05-11 08:45] LABS: BUN/Creat Ratio 26.69 Ratio (12.00-20.00); Blood Urea Nitrogen 42.7 mg/dL (9.0-27.0); Chloride 106 mmol/L (96-109); Glucose 158 mg/dL (70-110); Potassium 4.9 mmol/L (3.5-5.5); Sodium 138 mmol/L (135-145)
[2024-05-11 08:46] LABS: ALT 167 U/L (10-49); AST 125 U/L (14-35); Albumin 3.1 g/dL (3.8-4.9); Albumin/Globulin Ratio 1.48 Ratio (1.60-3.17); Alkaline Phosphatase 101 U/L (41-126); Calcium 8.8 mg/dL (8.7-10.3); Carbon Dioxide 18.8 mmol/L (21.6-31.8); Globulin 2.1 g/dL (1.6-3.3); Total Bilirubin 0.7 mg/dL (0.3-1.2); Total Protein 5.2 g/dL (6.2-8.2)
[2024-05-11 09:03] LABS: Basophils # (A) 0.04 X 10*3/uL (0.00-0.10); Basophils % (A) 0.6 %; Eosinophils # (A) 0.26 X 10*3/uL (0.04-0.35); Eosinophils % (A) 4.1 %; HCT 30.7 % (39.6-50.0); HGB 10.1 g/dL (13.0-17.0); Lymphocytes # (A) 1.11 X 10*3/uL (0.90-5.00); Lymphocytes % (A) 17.6 %; MCH 31.3 pg (27.0-32.0); MCHC 32.9 g/dL (32.0-37.0); Mean Platelet Volume 9.9 FL (9.5-12.2); Monocytes # (A) 0.87 X 10*3/uL (0.20-1.00); Monocytes % (A) 13.8 %; NRBC Per 100 WBC 0 X 10*3/uL (0.00-0.01); Neutrophils # (A) 3.97 X 10*3/uL (1.80-7.70); Neutrophils % (A) 63.3 %; Platelet Count 259 X 10*3/uL (140-440); RBC 3.23 X 10*6/uL (4.40-5.60); RDW 13.1 % (11.5-14.5); WBC 6.29 X 10*3/uL (4.50-10.00)
--- NOTE | 2024-05-11 09:14 | XR ---
EXAMINATION TYPE: XR abdomen 2V DATE OF EXAM: 05/11/2024 8:55 AM COMPARISON: 1025, CT 05/09/2024 CLINICAL INDICATION: Male, 84 years old with history of Follow-up ileus; [facility] TECHNIQUE: Two views of the abdomen were obtained. FINDINGS: Persistent gaseous dilation of bowel throughout the abdomen. Cardiac conduction leads parti ally visualized. Left hip arthroplasty changes present. Severe atherosclerosis of the arterial vascul ature. IMPRESSION: Persistent findings of gaseous dilation of bowel throughout the abdomen. Considered therapeutic small bowel follow-through with Gastrografin. [facility], , 05/11/2024 9:12 AM
--- NOTE | 2024-05-11 09:47 | P.PN ---
Subjective Progress Note Date: 05/11/24 HISTORY OF PRESENT ILLNESS: This is an 84-year-old male with a previous medical history signifi cant for hypertension and hypertensive cardiovascular disease, mixed hyperlipidemia, diabetes mellitus type 2, with diabetic polyneuropathy, chronic kidney disease stage IIIb, history of prostate cancer status post radiation therapy currently in remission, patient was in his usual state of health till about today when he was trying to get out of the car going inside the garage and all of a sudden he did not wait for his walker he tripped with his left foot and landed on the left side, he had tremendous amount of pain, EMS was called and the patient was brought into the ER for evaluation he was found to have a left subcapital femoral neck fracture, he was seen and evaluated by orthopedic surg matheus who recommended for the patient to go for left hemiarthroplasty, patient does not appear to have any acute chest pain at this point in time, he has no shortness of breath, he appears quite drowsy because he was receiving Dilaudid, he denies any chest pain or any shortness of breath at this point in time, patient had a twelve-lead EKG did not show evidence of acute abnormalities, patient is going for a moderate risk surgery there is no contraindication for the surgical intervention, surgery may carry the risk of a few complications that the patient is aware of and willing to proceed. 05/05: Patient underwent left hemiarthroplasty that was done successfully by , patient seemed to have a bit of a dry mouth, the nursing staff thought that the patient is having an acute stroke at this point in time there was concern about that, therefore the patient was sent for CT scan of the brain without contrast for further evaluation I reviewed the CT scan myself I did not see any evidence of acute CVA at this point in time, await the final results from the radiologist, patient appears to be back to baseline, he does not appear to have any acute weakness in the upper or lower extremities, he seems to be back to baseline. Patient has a Valero catheter in place we will continue with that, physical therapy evaluation, incentive spirometer, pain management, follow-up with the patient very closely. 05/06: Patient is laying down in bed in no apparent distress, he is feeling a lot better today, he continues to have some pain in the left hip area not as bad as it was. He is working with physical therapy, he continues to have a Valero catheter in place, we will try to discontinue Valero catheter, increase activity, continue to work with physical therapy, the plan is for the patient to go for subacute rehabilitation hopefully in the next 24 hours otherwise he will have to wait until Thursday. 05/07: Patient sitting up in bed today in no apparent distress, he stated the pain is well-controlled today, he denies any chest pain, or shortness of breath, he has not had a bowel movement in 5 days, we will add lactulose 20 g orally twice every day, continue current treatment plan, continue stool softener, continue MiraLAX, increase activity with physical therapy, patient does not want his Valero catheter to be removed yet, because is not ambulatory yet patient became delirious yesterday, he was pulling on his bandages, likely related to pain management, will continue to monitor the patient very closely, physical therapy evaluation, likely to be discharged to [facility] on Thursday. 05/08: Patient sitting up in bed in no apparent distress, he seems to be back to baseline, he denies any chest pain, or shortness of breath, monitor the patient's symptoms very closely, patient Valero catheter need to be removed, increase activity level, continue work with physical therapy, likely the patient will be discharged to [facility] tomorrow morning . 05/09: Patient sitting up in bed is complain of increased heartburn, abdominal distention, increased nausea and vomiting, patient not able to keep his medication down, abdominal x-ray showed evidence of ileus it was recommended for the patient to have a CT scan of the abdomen with oral contrast, general surgery consultation will be obtained, hold off the discharge for the next 24 hours. 05/10: Patient did have a large bowel movement yesterday is feeling better today, patient will be maintained on current treatment plan, he is to have another Dulcolax suppository and we will continue with same await Surgery input before he can get out of here 05/11: Patient is sitting up in bed he continues to be somewhat nauseated, he is not vomiting today, he was seen in consultation by general surgery yesterday who recommended to do a follow-up abdominal x-ray today patient is currently on clear liquid diet for now, continue IV fluid resuscitation in the form of normal saline at 100 cc an hour, follow-up with the patient very closely, if the x-ray still showing an ileus patient will need to have a small bowel follow-through. REVIEW OF SYSTEMS: Constitutional: No documented fever, no chills, no night sweats. No weight change. Positive for weakness, fatigue or lethargy. No daytime sleepiness. EENT: No headache. No blurred vision or double vision, no loss of vision. No loss of Hearing, no ringing in the ears, no dizziness. No nasal drainage or congestion. No epistaxis. No sore throat. Lungs: No shortness of breath, no cough, no sputum production. No wheezing. Reports dyspnea with activity. Cardiovascular: No chest pain, no lower extremity edema. No palpitations. No paroxysmal nocturnal dyspnea. No orthopnea. No lightheadedness or dizziness. No syncopal episodes. Abdominal: Reports abdominal pain. Minimal nausea, vomiting. No diarrhea. Positive for constipation. No bloody or tarry stools reports loss of appetite. Genitourinary: No dysuria, increased frequency, urgency. No urinary retention. Musculoskeletal: No myalgias. No muscle weakness, positive for gait dysfunc tion, positive for frequent falls. No back pain. No neck pain., left hip pain Integumentary: Left hip wound is clean covered with dressing. No lesions. No rash or pruritus. No unusual bruising. No change in hair or nails. Neurologic: Minimal chronic aphasia. Minimal facial droop. No change in mentation. No head injury. No headache. No paralysis. Positive paresthesia. Psychiatric: Mild depression. No anxiety. No mood swings. Endocrine:positive for abnormal blood sugars. No weight change. PHYSICAL EXAMINATION: General: 84-year-old male laying down in bed in minimal distress. HEENT: Head is atraumatic, normocephalic, pupils were equal round reactive to light and recommendation, extraocular muscle movement were intact, sclera nonicteric, conjunctivae were pale, mucous membranes of the mouth are somewhat dry. Neck: Supple, no JVP, normal carotid upstroke bilaterally, no lymphadenopathy. Chest: Decreased breath sounds at the bases, few rhonchi, no expiratory wheezes, no chest wall tenderness, no intercostal retractions. Heart: First heart sound is normal, second heart sounds normal there is systolic ejection murmur 2/6 located in the left sternal border. Abdomen: Soft, nontender, nondistended, positive bowel sounds. Extremities: There is no edema no calf tenderness DP +2 bilaterally, left incision appears to be covered with dressing no drainage Neurologic examination: Patient is awake alert and oriented x3, cranial nerves II-12 appear grossly intact, muscle power were 4 out of 5 in upper extremities and 4out of 5 in bilateral lower extremities, deep tendon reflexes were normal. ASSESSMENT AND PLAN: 1. Postoperative day #7 status post left hemiarthroplasty. Continue patient on incentive spirometer, continue to increase activity, continue current pain management, continue physical therapy continue current treatment plan. 2. Acute kidney injury on chronic kidney disease stage IIIb due to acute tubular necrosis and vasomotor nephropathy. Restart the patient back on normal saline at 100 cc an hour, repeat CMP tomorrow morning, discontinue metformin, discontinue Farxiga for now. 3. Hyponatremia due to hypovolemia. continue IV fluid resuscitation in the form of normal saline. 4. Hyperkalemia post Lokelma 5 g orally x 1 resolved. 5. Ileus due to recent surgical intervention reviewed CT scan of the abdomen pelvis that showed ileus surgical consultation appreciated, continue clear liquid diet, follow-up with the patient very closely, repeat abdominal x-ray tomorrow morning. 6. Hypertension and hypertensive cardiovascular disease. Continue patient on metoprolol 25 mg orally twice a day, monitor the patient blood pressure very closely. 7. Mixed hyperlipidemia. Continue rosuvastatin 40 mg once every day, Zetia 10 mg once every day, monitor lipid panel, keep LDL 55-70. 8. Diabetes mellitus type 2. Continue patient on Lantus 12 units at bedtime along with a sliding scale insulin, discontinue metformin, continue patient on linagliptin 5 mg once every day discontinue Farxiga as well. 9. Diabetic polyneuropathy. tight control of diabetes. 10. Prostate cancer. Status post radiation therapy. 11. Medical debility. continue to work with physical therapy, patient will likely go to [facility] when his ileus resolves. 12. DVT prophylaxis. Patient will be started on aspirin 81 mg orally twice every day for 30 days postoperatively. 13. GI prophylaxis. Continue famotidine 20 mg orally twice every day along with Protonix 40 mg once every day. 14. Constipation continue patient on Senokot 2 tablet at bedtime along with MiraLAX 17 g in 8 ounce of water, and lactulose 20 g orally twice every day patient did receive a suppository 2 days in the row. 15. Acute delirium likely related to pain management. Appears better now. 16. Hold off discharge until the ileus resolves. Objective - Vital Signs Vital signs: Vital Signs Temp 97.5 F L 05/11/24 01:36 Pulse 68 05/11/24 01:36 Resp 17 05/11/24 01:36 BP 155/74 05/11/24 01:36 Pulse Ox 95 05/11/24 01:36 FiO2 Intake & Output 05/10/24 05/10/24 05/11/24 06:59 18:59 06:59 Output Total 400 525 Balance -400 -525 Output: Urine 400 525 Other: Voiding Method External Catheter External Catheter External Catheter - Labs CBC & Chem 7: 05/10/24 03:12 05/10/24 03:12 Labs: Abnormal Lab Results - Last 24 Hours (Table) 05/10/24 05/10/24 05/10/24 Range/Units 03:12 03:12 11:27 RBC 3.60 L (4.40-5.60) X 10*6/uL Hgb 11.2 L (13.0-17.0) g/dL Hct 34.7 L (39.6-50.0) % Monocytes # 1.02 H (0.20-1.00) X 10*3/uL Carbon Dioxide 20.2 L (21.6-31.8) mmol/L Anion Gap 14.80 H (4.00-12.00) mmol/L BUN 42.7 H (9.0-27.0) mg/dL Creatinine 1.7 H (0.6-1.5) mg/dL Est GFR (CKD-EPI) 39 L (>=60) BUN/Creatinine Ratio 25.12 H (12.00-20.00) Ratio Glucose 190 H (70-110) mg/dL POC Glucose (mg/dL) 212 H (70-110) mg/dL AST 119 H (14-35) U/L ALT 168 H (10-49) U/L Total Protein 5.7 L (6.2-8.2) g/dL Albumin 3.3 L (3.8-4.9) g/dL Albumin/Globulin Ratio 1.38 L (1.60-3.17) Ratio 05/10/24 05/10/24 05/11/24 Range/Units 16:40 21:02 06:22 RBC (4.40-5.60) X 10*6/uL Hgb (13.0-17.0) g/dL Hct (39.6-50.0) % Monocytes # (0.20-1.00) X 10*3/uL Carbon Dioxide (21.6-31.8) mmol/L Anion Gap (4.00-12.00) mmol/L BUN (9.0-27.0) mg/dL Creatinine (0.6-1.5) mg/dL Est GFR (CKD-EPI) (>=60) BUN/Creatinine Ratio (12.00-20.00) Ratio Glucose (70-110) mg/dL POC Glucose (mg/dL) 153 H 152 H 161 H (70-110) mg/dL AST (14-35) U/L ALT (10-49) U/L Total Protein (6.2-8.2) g/dL Albumin (3.8-4.9) g/dL Albumin/Globulin Ratio (1.60-3.17) Ratio
--- NOTE | 2024-05-11 09:52 | P.DS ---
Providers Date of admission: 05/04/24 13:25 Expected date of discharge: 05/11/24 Attending physician: Karla Farris Consults: 05/04/24 13:23 Consult Physician Routine Consulting Provider: Majo Galeana Consult Reason/Comments: medical care Do you want consulting provider notified?: Yes 05/09/24 15:06 Consult Physician Routine Consulting Provider: Martin Norwood Consult Reason/Comments: possible bowel obstruction/ileus Do you want consulting provider notified?: Yes Primary care physician: Majo Galeana - Discharge Diagnosis(es) (1) Left hip pain From an orthopedic standpoint the patient is okay for rehab today. However he still has dilation in his abdomen. He is not vomiting. He has had bowel movements. They are considering further testing versus observation. Discharge will depend on whether he needs further workup as per surgery or not. If he is stable from surgery then is okay for him to go to retirement. If he needs further workup from surgery he will stay. Current Visit: Yes Status: Acute (2) Inability to ambulate due to hip Current Visit: Yes Status: Acute (3) Status post fall Current Visit: Yes Status: Acute (4) Hypertension Current Visit: Yes Status: Acute (5) Type 2 diabetes mellitus Current Visit: Yes Status: Acute (6) Diabetic neuropathy Current Visit: Yes Status: Acute (7) History of prostate cancer Current Visit: Yes Status: Acute (8) Chronic kidney disease Current Visit: Yes Status: Acute (9) Hyperlipidemia Current Visit: Yes Status: Acute (10) Hip fracture, left Current Visit: Yes Status: Acute (11) S/P hip hemiarthroplasty Current Visit: Yes Status: Acute Hospital Course: This is a pleasant 84-year-old male who presented with left hip femoral neck fracture and left hip pain status post fall. He was admitted for further treatment and evaluation. He underwent left hip hemiarthroplasty performed on 05/05/2024. He has been improving in regards to his left hip. His left hip pain is well-controlled. He has no complaints in regards to his hip. The patient tolerated the procedure well and did well postoperatively. He is not currently complaining of any significant left hip pain. He is planning for discharge today to [facility]. This has been authorized by his insurance. Patient is currently being evaluated by Dr. Norwood in general surgery for possible paralytic ileus. Patient has had 2 bowel movements. He states his pain is significantly improved today as compared to yesterday. He has been on a clear liquid diet per general surgery. Abdominal films are pending for today. We did discuss patient must be cleared by general surgery and medicine prior to his discharge to rehab today. Condition on day of discharge will be stable. Patient will be discharged when cleared by medicine and general surgery. Medicine has been notified. Medicine has been following the patient for his other medical diagnoses during his admission. Patient currently denies any nausea, vomiting, fever, or chills. Patient is eating liquids and voiding freely without difficulty and external catheter. Patient may shower Optifoam dressing intact. Patient may remove Optifoam dressing in 7 days and shower without a dressing at that time. Patient should refrain from driving until at least after their first follow-up appointment in the office. Patient may weight-bear as tolerated on the left lower extremity with the assistance of a walker. Patient must keep abductor pillow in place while lying in bed. Pillow does not have to be utilized when sitting in a chair or working with therapy. A prescription has been written for prescription is written, signed, and placed in the patient's chart for hydrocodone 7.5 mg / 325 mg, 1 tab, every 6 hours, as needed for acute pain, dispense #28. He is given a prescription for aspirin 325 mg 1 tab twice daily, dispense #60. Prescription should be taken until completion for postoperative anticoagulation. Patient is also given a prescription for Senokot-S, 1 tab, twice daily, as needed for constipation, dispense #60. Patient's other medical diagnoses include acute kidney injury on chronic kidney disease stage IIIb, hypertension, hyperlipidemia, diabetes type 2, diabetic polyneuropathy, and history of prostate cancer. Physical Exam on day of discharge: Status post surgical day number 6 Patient is examined lying in bed Patient is awake, alert, and oriented 3 Vital signs stable Good chest excursion with deep inspiration and expiration No signs or symptoms of DVT; no calf pain; calves are soft nontender Lower extremity cuffs not currently in place bilaterally Dressing of the left hip is clean, dry, and intact; no erythema, purulence, or signs of infection No significant pain with palpation over the surgical site at the left hip Procedures: Status post left hip hemiarthroplasty Patient Condition at Discharge: Stable Plan - Discharge Summary Discharge Rx Participant: No New Discharge Prescriptions: New Aspirin 325 mg PO BID #60 tab HYDROcodone/APAP 7.5-325MG [Hannacroix 7.5-325] 1 each PO Q6HR PRN #28 tab PRN Reason: Pain Sennosides-Docusate Sodium [Senokot-S] 1 tab PO BID PRN #60 tablet PRN Reason: Constipation Lactulose [Cephulac] 20 gm PO BID ml INSULIN LISPRO (HumaLOG) [HumaLOG] 0 unit SQ ACHS each polyethylene glycoL 3350 [Miralax] 17 gm PO DAILY packet Continue Tamsulosin HCl [Flomax] 0.4 mg PO HS Glimepiride [Amaryl] 4 mg PO BID sitaGLIPtin PHOS/metFORMIN HCL [Janumet 50-500 mg Tablet] 1 tab PO BID Loratadine [Claritin] 10 mg PO DAILY PRN PRN Reason: Allergy Symptoms in Summer Multivit-Minerals/FA/Lycopene [One-A-Day Men's 50 Plus Tablet] 1 tab PO HS Rosuvastatin Calcium [Crestor] 40 mg PO HS Metoprolol Succinate (ER) [Toprol XL] 25 mg PO BID bisacodyL [Dulcolax] 5 mg PO DAILY PRN PRN Reason: Constipation Famotidine [Pepcid] 20 mg PO DAILY PRN PRN 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 Docusate [Colace] 200 mg PO HS Acetaminophen/Diphenhydramine [Tylenol PM 500-25mg] 2 tab PO HS Dapagliflozin Propanediol [Farxiga] 5 mg PO DAILY Acetaminophen [Tylenol Arthritis] 1,300 mg PO DAILY Ezetimibe [Zetia] 10 mg PO HS Discontinued Aspirin 81 mg PO DAILY Discharge Medication List Tamsulosin HCl [Flomax] 0.4 mg PO HS 03/27/14 [History] Glimepiride [Amaryl] 4 mg PO BID 03/11/19 [History] sitaGLIPtin PHOS/metFORMIN HCL [Janumet 50-500 mg Tablet] 1 tab PO BID 03/11/19 [History] Acetaminophen [Tylenol Arthritis] 1,300 mg PO DAILY 05/04/24 [History] Acetaminophen/Diphenhydramine [Tylenol PM 500-25mg] 2 tab PO HS 05/04/24 [History] Dapagliflozin Propanediol [Farxiga] 5 mg PO DAILY 05/04/24 [History] Docusate [Colace] 200 mg PO HS 05/04/24 [History] Ezetimibe [Zetia] 10 mg PO HS 05/04/24 [History] Famotidine [Pepcid] 20 mg PO DAILY PRN 05/04/24 [History] Loratadine [Claritin] 10 mg PO DAILY PRN 05/04/24 [History] Metoprolol Succinate (ER) [Toprol XL] 25 mg PO BID 05/04/24 [History] Multivit-Minerals/FA/Lycopene [One-A-Day Men's 50 Plus Tablet] 1 tab PO HS 05/04/24 [History] Rosuvastatin Calcium [Crestor] 40 mg PO HS 05/04/24 [History] bisacodyL [Dulcolax] 5 mg PO DAILY PRN 05/04/24 [History] Aspirin 325 mg PO BID #60 tab 05/06/24 [Rx] HYDROcodone/APAP 7.5-325MG [Hannacroix 7.5-325] 1 each PO Q6HR PRN #28 tab 05/06/24 [Rx] INSULIN LISPRO (HumaLOG) [HumaLOG] 0 unit SQ ACHS each 05/09/24 [Rx] Lactulose [Cephulac] 20 gm PO BID ml 05/09/24 [Rx] Sennosides-Docusate Sodium [Senokot-S] 1 tab PO BID PRN #60 tablet 05/09/24 [Rx] polyethylene glycoL 3350 [Miralax] 17 gm PO DAILY packet 05/09/24 [Rx] Follow up Appointment(s)/Referral(s): Majo Galeana MD [Primary Care Provider] - 1 Week (at [facility]) Chris Rivers PAC [PHYSICIAN FINISHING WIRE SAWYER] - 05/20/24 10:15 am (Patient may follow-up with Chris Rivers PA-C or Dr. Fito Farris at [facility] in 2-3 weeks following discharge. ) Activity/Diet/Wound Care/Special Instructions: 1. Keep Optifoam dressing over the left hip intact over the next 7 days 2. Patient may shower with dressing intact over the surgical site of the left hip 3. Patient may shower without a dressing intact after 7 days his incision site remains clean and dry 4. Weight-bear as tolerated left lower extremity with a walker with assistance 5. Patient must keep abductor pillow intact while lying in bed 5. Take medications as prescribed 6. Any questions or concerns patient may contact [facility] at [phone] Discharge Disposition: TRANSFER TO SNF/ECF
[2024-05-11] MEDS: bisacodyL 10 MG SUPP RECTAL STA (10:16)
[2024-05-11 11:53] LABS: Glucose,Whole Blood 226 mg/dL (70-110)
--- NOTE | 2024-05-11 13:22 | P.PN ---
Subjective Progress Note Date: 05/11/24 SURGICAL PROGRESS NOTE CHIEF COMPLAINT: Ileus HISTORY OF PRESENT ILLNESS: Surgical service following in regards to patient's illness. Patient had a fall with hip fracture with recent repair. Today Patie nt is complaining of heartburn with burping. He did have an episode of diarrhea yesterday. He has had some flatus. Denies any bowel movement today. Abdomen remains distended but less distended than yesterday per family member. Patient denies any abdominal pain. Denies any vomiting. Abdominal x-ray reports persistent findings of gaseous dilation of the bowel throughout the abdomen. Consider therapeutic small bowel follow-through with Gastrografin. PHYSICAL EXAM: VITAL SIGNS: Reviewed. GENERAL: Well-developed in no acute distress. ABDOMEN: Soft. Distended. Nontender NEUROLOGIC: Alert and oriented. Cranial nerves II through XII grossly intact. ASSESSMENT: 1. Ileus. Abdominal x-ray still reporting persistent findings of gaseous dilation of the bowel throughout the abdomen PLAN: -Will proceed with small bowel follow-through with Gastrografin -Continue clear liquid diet. Encourage patient to go slow with the liquids. And if he continues to have heartburn or further abdominal distention to stop the liquids. -Increase activity as tolerated -Patient is not ready for discharge from surgical standpoint Physician Emergency Vehicle Operator note has been reviewed by physician. Signing provider agrees with the documented findings, assessment, and plan of care. I have personally seen and examined the patient, reviewed the BOOM STICK MAN /PAs history, exam and MDM and agree with the assessment and plan as written. Based on total visit time, I have performed more than 50% of the visit. As above: Patient still bloated and has some heartburn. Audible bowel sounds. Will order small bowel follow-through for tomorrow to evaluate for small bowel obstruction. Objective - Vital Signs Vital signs: Vital Signs Temp 98.1 F 05/11/24 07:35 Pulse 49 L 05/11/24 08:50 Resp 18 05/11/24 08:50 BP 147/62 05/11/24 07:35 Pulse Ox 94 L 05/11/24 07:35 FiO2 Intake & Output 05/10/24 05/11/24 05/11/24 18:59 06:59 18:59 Output Total 525 850 Balance -525 -850 Output: Urine 525 850 Other: Voiding Method External Catheter External Catheter External Catheter - Labs CBC & Chem 7: 05/11/24 02:43 05/11/24 02:43 Labs: Abnormal Lab Results - Last 24 Hours (Table) 05/10/24 05/10/24 05/11/24 Range/Units 16:40 21:02 02:43 RBC 3.23 L (4.40-5.60) X 10*6/uL Hgb 10.1 L (13.0-17.0) g/dL Hct 30.7 L (39.6-50.0) % Carbon Dioxide (21.6-31.8) mmol/L Anion Gap (4.00-12.00) mmol/L BUN (9.0-27.0) mg/dL Creatinine (0.6-1.5) mg/dL Est GFR (CKD-EPI) (>=60) BUN/Creatinine Ratio (12.00-20.00) Ratio Glucose (70-110) mg/dL POC Glucose (mg/dL) 153 H 152 H (70-110) mg/dL AST (14-35) U/L ALT (10-49) U/L Total Protein (6.2-8.2) g/dL Albumin (3.8-4.9) g/dL Albumin/Globulin Ratio (1.60-3.17) Ratio 05/11/24 05/11/24 05/11/24 Range/Units 02:43 06:22 11:51 RBC (4.40-5.60) X 10*6/uL Hgb (13.0-17.0) g/dL Hct (39.6-50.0) % Carbon Dioxide 18.8 L (21.6-31.8) mmol/L Anion Gap 13.20 H (4.00-12.00) mmol/L BUN 42.7 H (9.0-27.0) mg/dL Creatinine 1.6 H (0.6-1.5) mg/dL Est GFR (CKD-EPI) 42 L (>=60) BUN/Creatinine Ratio 26.69 H (12.00-20.00) Ratio Glucose 158 H (70-110) mg/dL POC Glucose (mg/dL) 161 H 226 H (70-110) mg/dL AST 125 H (14-35) U/L ALT 167 H (10-49) U/L Total Protein 5.2 L (6.2-8.2) g/dL Albumin 3.1 L (3.8-4.9) g/dL Albumin/Globulin Ratio 1.48 L (1.60-3.17) Ratio
[2024-05-11 16:09] VITALS: BMI 25.7
[2024-05-11 17:33] LABS: Glucose,Whole Blood 126 mg/dL (70-110)
[2024-05-11 20:33] LABS: Glucose,Whole Blood 131 mg/dL (70-110)
[2024-05-12 06:12] LABS: Glucose,Whole Blood 105 mg/dL (70-110)
--- NOTE | 2024-05-12 09:52 | P.PN ---
Subjective Progress Note Date: 05/12/24 HISTORY OF PRESENT ILLNESS: This is an 84-year-old male with a previous medical history signifi cant for hypertension and hypertensive cardiovascular disease, mixed hyperlipidemia, diabetes mellitus type 2, with diabetic polyneuropathy, chronic kidney disease stage IIIb, history of prostate cancer status post radiation therapy currently in remission, patient was in his usual state of health till about today when he was trying to get out of the car going inside the garage and all of a sudden he did not wait for his walker he tripped with his left foot and landed on the left side, he had tremendous amount of pain, EMS was called and the patient was brought into the ER for evaluation he was found to have a left subcapital femoral neck fracture, he was seen and evaluated by orthopedic surg matheus who recommended for the patient to go for left hemiarthroplasty, patient does not appear to have any acute chest pain at this point in time, he has no shortness of breath, he appears quite drowsy because he was receiving Dilaudid, he denies any chest pain or any shortness of breath at this point in time, patient had a twelve-lead EKG did not show evidence of acute abnormalities, patient is going for a moderate risk surgery there is no contraindication for the surgical intervention, surgery may carry the risk of a few complications that the patient is aware of and willing to proceed. 05/05: Patient underwent left hemiarthroplasty that was done successfully by , patient seemed to have a bit of a dry mouth, the nursing staff thought that the patient is having an acute stroke at this point in time there was concern about that, therefore the patient was sent for CT scan of the brain without contrast for further evaluation I reviewed the CT scan myself I did not see any evidence of acute CVA at this point in time, await the final results from the radiologist, patient appears to be back to baseline, he does not appear to have any acute weakness in the upper or lower extremities, he seems to be back to baseline. Patient has a Valero catheter in place we will continue with that, physical therapy evaluation, incentive spirometer, pain management, follow-up with the patient very closely. 05/06: Patient is laying down in bed in no apparent distress, he is feeling a lot better today, he continues to have some pain in the left hip area not as bad as it was. He is working with physical therapy, he continues to have a Valero catheter in place, we will try to discontinue Valero catheter, increase activity, continue to work with physical therapy, the plan is for the patient to go for subacute rehabilitation hopefully in the next 24 hours otherwise he will have to wait until Thursday. 05/07: Patient sitting up in bed today in no apparent distress, he stated the pain is well-controlled today, he denies any chest pain, or shortness of breath, he has not had a bowel movement in 5 days, we will add lactulose 20 g orally twice every day, continue current treatment plan, continue stool softener, continue MiraLAX, increase activity with physical therapy, patient does not want his Valero catheter to be removed yet, because is not ambulatory yet patient became delirious yesterday, he was pulling on his bandages, likely related to pain management, will continue to monitor the patient very closely, physical therapy evaluation, likely to be discharged to [facility] on Thursday. 05/08: Patient sitting up in bed in no apparent distress, he seems to be back to baseline, he denies any chest pain, or shortness of breath, monitor the patient's symptoms very closely, patient Valero catheter need to be removed, increase activity level, continue work with physical therapy, likely the patient will be discharged to [facility] tomorrow morning . 05/09: Patient sitting up in bed is complain of increased heartburn, abdominal distention, increased nausea and vomiting, patient not able to keep his medication down, abdominal x-ray showed evidence of ileus it was recommended for the patient to have a CT scan of the abdomen with oral contrast, general surgery consultation will be obtained, hold off the discharge for the next 24 hours. 05/10: Patient did have a large bowel movement yesterday is feeling better today, patient will be maintained on current treatment plan, he is to have another Dulcolax suppository and we will continue with same await Surgery input before he can get out of here 05/11: Patient is sitting up in bed he continues to be somewhat nauseated, he is not vomiting today, he was seen in consultation by general surgery yesterday who recommended to do a follow-up abdominal x-ray today patient is currently on clear liquid diet for now, continue IV fluid resuscitation in the form of normal saline at 100 cc an hour, follow-up with the patient very closely, if the x-ray still showing an ileus patient will need to have a small bowel follow-through. 05/12: Patient sitting up in bed in no apparent risk, he is doing much better t jhonny, he denies any chest pain, shortness of breath, he just went for the small bowel follow-through today has not have the report yet he has not had a bowel movement, will give another Dulcolax suppository 10 mg x 1, if the small bowel follow-through is okay patient can be discharged to [facility] on the [place] this afternoon, I will follow-up with the patient at [facility] in the next 24 hours. REVIEW OF SYSTEMS: Constitutional: No documented fever, no chills, no night sweats. No weight change. Positive for weakness, fatigue or lethargy. No daytime sleepiness. EENT: No headache. No blurred vision or double vision, no loss of vision. No loss of Hearing, no ringing in the ears, no dizziness. No nasal drainage or congestion. No epistaxis. No sore throat. Lungs: No shortness of breath, no cough, no sputum production. No wheezing. Reports dyspnea with activity. Cardiovascular: No chest pain, no lower extremity edema. No palpitations. No paroxysmal nocturnal dyspnea. No orthopnea. No lightheadedness or dizziness. No syncopal episodes. Abdominal: Reports abdominal pain. Minimal nausea, vomiting. No diarrhea. Positive for constipation. No bloody or tarry stools reports loss of appetite. Genitourinary: No dysuria, increased frequency, urgency. No urinary retention. Musculoskeletal: No myalgias. No muscle weakness, positive for gait dysfunction, positive for frequent falls. No back pain. No neck pain., left hip pain Integumentary: Left hip wound is clean covered with dressing. No lesions. No rash or pruritus. No unusual bruising. No change in hair or nails. Neurologic: Minimal chronic aphasia. Minimal facial droop. No change in mentation. No head injury. No headache. No paralysis. Positive paresthesia. Psychiatric: Mild depression. No anxiety. No mood swings. Endocrine:positive for abnormal blood sugars. No weight change. PHYSICAL EXAMINATION: General: 84-year-old male laying down in bed in minimal distress. HEENT: Head is atraumatic, normocephalic, pupils were equal round reactive to light and recommendation, extraocular muscle movement were intact, sclera nonicteric, conjunctivae were pale, mucous membranes of the mouth are somewhat dry. Neck: Supple, no JVP, normal carotid upstroke bilaterally, no lymphadenopathy. Chest: Decreased breath sounds at the bases, few rhonchi, no expiratory wheezes, no chest wall tenderness, no intercostal retractions. Heart: First heart sound is normal, second heart sounds normal there is systolic ejection murmur 2/6 located in the left sternal border. Abdomen: Soft, nontender, nondistended, positive bowel sounds. Extremities: There is no edema no calf tenderness DP +2 bilaterally, left incision appears to be covered with dressing no drainage Neurologic examination: Patient is awake alert and oriented x3, cranial nerves II-12 appear grossly intact, muscle power were 4 out of 5 in upper extremities and 4out of 5 in bilateral lower extremities, deep tendon reflexes were normal. ASSESSMENT AND PLAN: 1. Postoperative day #8 status post left hemiarthroplasty. Continue patient on incentive spirometer, continue to increase activity, continue current pain management, continue physical therapy continue current treatment plan. 2. Acute kidney injury on chronic kidney disease stage IIIb due to acute tubular necrosis and vasomotor nephropathy. Restart the patient back on normal saline at 100 cc an hour, repeat CMP tomorrow morning, discontinue metformin, discontinue Farxiga for now. 3. Hyponatremia due to hypovolemia. continue IV fluid resuscitation in the form of normal saline. 4. Hyperkalemia post Lokelma 5 g orally x 1 resolved. 5. Ileus due to recent surgical intervention reviewed CT scan of the abdomen pelvis that showed ileus surgical consultation appreciated, continue clear liquid diet, patient did have a small bowel follow-through done today, results are still pending. 6. Hypertension and hypertensive cardiovascular disease. Continue patient on metoprolol 25 mg orally twice a day, monitor the patient blood pressure very closely. 7. Mixed hyperlipidemia. Continue rosuvastatin 40 mg once every day, Zetia 10 mg once every day, monitor lipid panel, keep LDL 55-70. 8. Diabetes mellitus type 2. Continue patient on Lantus 12 units at bedtime along with a sliding scale insulin, discontinue metformin, continue patient on linagliptin 5 mg once every day discontinue Farxiga as well. 9. Diabetic polyneuropathy. tight control of diabetes. 10. Prostate cancer. Status post radiation therapy. 11. Medical debility. continue to work with physical therapy, patient will likely go to [facility] when his ileus resolves. 12. DVT prophylaxis. Patient will be started on aspirin 81 mg orally twice every day for 30 days postoperatively. 13. GI prophylaxis. Continue famotidine 20 mg orally twice every day along with Protonix 40 mg once every day. 14. Constipation continue patient on Senokot 2 tablet at bedtime along with MiraLAX 17 g in 8 ounce of water, and lactulose 20 g orally twice every day patient did receive a suppository 2 days in the row. 15. Acute delirium likely related to pain management. Appears better now. 16. patient can be discharged to [facility] on the [place] if small bowel follow- through is negative and okay with surgery. Objective - Vital Signs Vital signs: Vital Signs Temp 98.3 F 05/12/24 07:08 Pulse 68 05/12/24 07:08 Resp 18 05/12/24 07:08 BP 137/70 05/12/24 07:08 Pulse Ox 98 05/12/24 07:08 FiO2 Intake & Output 05/11/24 05/12/24 05/12/24 18:59 06:59 18:59 Output Total 1250 400 Balance -1250 -400 Weight 86.183 kg Output: Urine 1250 400 Other: Voiding Method External Catheter External Catheter # Voids 3 # Bowel Movements 1 - Labs CBC & Chem 7: 05/11/24 02:43 05/11/24 02:43 Labs: Abnormal Lab Results - Last 24 Hours (Table) 05/11/24 05/11/24 05/11/24 Range/Units 11:51 17:29 20:31 POC Glucose (mg/dL) 226 H 126 H 131 H (70-110) mg/dL
[2024-05-12] MEDS: bisacodyL 10 MG SUPP RECTAL STA (10:39)
[2024-05-12 10:44] LABS: Basophils % (A) 1 %; Eosinophils # (A) 0.2 k/uL (0-0.7); Eosinophils % (A) 4 %; HCT 33.4 % (39.0-53.0); HGB 10.5 gm/dL (13.0-17.5); Hypochromasia Slight; Lymphocytes # (A) 0.9 k/uL (1.0-4.8); Lymphocytes % (A) 16 %; MCH 30.7 pg (25.0-35.0); MCHC 31.3 g/dL (31.0-37.0); Mean Platelet Volume 7.2; Monocytes # (A) 0.5 k/uL (0-1.0); Monocytes % (A) 8 %; Neutrophils # (A) 4.2 k/uL (1.3-7.7); Neutrophils % (A) 70 %; Platelet Count 310 k/uL (150-450); RBC 3.41 m/uL (4.30-5.90); RDW 12.9 % (11.5-15.5)
[2024-05-12 11:04] LABS: ALT 130 U/L (4-49); AST 72 U/L (17-59); African American GFR (CKD) 59 (>60 ml/min/1.73 sqM); Albumin 2.9 g/dL (3.5-5.0); Albumin/Globulin Ratio 1.2; Alkaline Phosphatase 117 U/L (38-126); Anion Gap 8 mmol/L; Blood Urea Nitrogen 35 mg/dL (9-20); Calcium 8.8 mg/dL (8.4-10.2); Carbon Dioxide 20 mmol/L (22-30); Chloride 108 mmol/L (98-107); Globulin 2.4 g/dL; Glucose 118 mg/dL (74-99); Non-African American GFR(CKD) 51 (>60 ml/min/1.73 sqM); Potassium 4.7 mmol/L (3.5-5.1); Sodium 136 mmol/L (137-145); Total Bilirubin 1.1 mg/dL (0.2-1.3); Total Protein 5.3 g/dL (6.3-8.2)
[2024-05-12 11:36] LABS: Glucose,Whole Blood 120 mg/dL (70-110)
--- NOTE | 2024-05-12 11:49 | P.DS ---
Providers Date of admission: 05/04/24 13:25 Expected date of discharge: 05/12/24 Attending physician: Karla Farris Consults: 05/04/24 13:23 Consult Physician Routine Consulting Provider: Majo Galeana Consult Reason/Comments: medical care Do you want consulting provider notified?: Yes 05/09/24 15:06 Consult Physician Routine Consulting Provider: Martin Norwood Consult Reason/Comments: possible bowel obstruction/ileus Do you want consulting provider notified?: Yes Primary care physician: Majo Galeana - Discharge Diagnosis(es) (1) Left hip pain Current Visit: Yes Status: Acute (2) Inability to ambulate due to hip Current Visit: Yes Status: Acute (3) Status post fall Current Visit: Yes Status: Acute (4) Hypertension Current Visit: Yes Status: Acute (5) Type 2 diabetes mellitus Current Visit: Yes Status: Acute (6) Diabetic neuropathy Current Visit: Yes Status: Acute (7) History of prostate cancer Current Visit: Yes Status: Acute (8) Chronic kidney disease Current Visit: Yes Status: Acute (9) Hyperlipidemia Current Visit: Yes Status: Acute (10) Hip fracture, left Current Visit: Yes Status: Acute (11) S/P hip hemiarthroplasty Current Visit: Yes Status: Acute Hospital Course: This is a pleasant 84-year-old male who presented with left hip femoral neck fracture and left hip pain status post fall. He was admitted for further treatment and evaluation. He underwent left hip hemiarthroplasty performed on 05/05/2024. He has been improving in regards to his left hip. His left hip pain is well-controlled. He has no complaints in regards to his hip. The patient tolerated the procedure well and did well postoperatively. He is not currently complaining of any significant left hip pain. He is planning for discharge today to [facility] rehabilitation facility. This has been authorized by his insurance. Patient is currently being evaluated by Dr. Norwood in general surgery for his abdomen. He has gone through a small bowel follow-through today. Has not had a bowel movement and will give another Dulcolax suppository 10 mg x 1. If the small bowel follow-through is okay patient can be discharged to [facility] on the [address] this afternoon, per medicine. Patient will need clearance by general surgery as well. I did discuss with the patient that he must be cleared by general surgery and medicine prior to his discharge to rehab today. Condition on day of discharge will be stable. Medicine has been following the patient for his other medical diagnoses during his admission. Patient currently denies any nausea, vomiting, fever, or chills. Patient is eating liquids and voiding freely without difficulty and external catheter. Patient may shower Optifoam dressing intact. Patient may remove Optifoam dressing in 7 days and shower without a dressing at that time. Patient should refrain from driving until at least after their first follow-up appointment in the office. Patient may weight-bear as tolerated on the left lower extremity with the assistance of a walker. Patient must keep abductor pillow in place while lying in bed. Pillow does not have to be utilized when sitting in a chair or working with therapy. A prescription has been written for prescription is written, signed, and placed in the patient's chart for hydrocodone 7.5 mg / 325 mg, 1 tab, every 6 hours, as needed for acute pain, dispense #28. He is given a prescription for aspirin 325 mg 1 tab twice daily, dispense #60. Prescription should be taken until completion for postoperative anticoagulation. Patient is also given a prescription for Senokot-S, 1 tab, twice daily, as needed for constipation, dispense #60. Patient's other medical diagnoses include acute kidney injury on chronic kidney disease stage IIIb, hypertension, hyperlipidemia, diabetes type 2, diabetic polyneuropathy, and history of prostate cancer. Physical Exam on day of discharge: Status post surgical day number 7 Patient is examined lying in bed Patient is awake, alert, and oriented 3 Vital signs stable Good chest excursion with deep inspiration and expiration No signs or symptoms of DVT; no calf pain; calves are soft nontender Lower extremity cuffs not currently in place bilaterally Dressing of the left hip is clean, dry, and intact; no erythema, purulence, or signs of infection No significant pain with palpation over the surgical site at the left hip Procedures: Status post left hip hemiarthroplasty for left femoral neck fracture Patient Condition at Discharge: Stable Plan - Discharge Summary Discharge Rx Participant: No New Discharge Prescriptions: New Aspirin 325 mg PO BID #60 tab HYDROcodone/APAP 7.5-325MG [[place] 7.5-325] 1 each PO Q6HR PRN #28 tab PRN Reason: Pain Sennosides-Docusate Sodium [Senokot-S] 1 tab PO BID PRN #60 tablet PRN Reason: Constipation Lactulose [Cephulac] 20 gm PO BID ml INSULIN LISPRO (HumaLOG) [HumaLOG] 0 unit SQ ACHS each polyethylene glycoL 3350 [Miralax] 17 gm PO DAILY packet Continue Tamsulosin HCl [Flomax] 0.4 mg PO HS Glimepiride [Amaryl] 4 mg PO BID sitaGLIPtin PHOS/metFORMIN HCL [Janumet 50-500 mg Tablet] 1 tab PO BID Loratadine [Claritin] 10 mg PO DAILY PRN PRN Reason: Allergy Symptoms in Summer Multivit-Minerals/FA/Lycopene [One-A-Day Men's 50 Plus Tablet] 1 tab PO HS Rosuvastatin Calcium [Crestor] 40 mg PO HS Metoprolol Succinate (ER) [Toprol XL] 25 mg PO BID bisacodyL [Dulcolax] 5 mg PO DAILY PRN PRN Reason: Constipation Famotidine [Pepcid] 20 mg PO DAILY PRN PRN Reason: acid binding printer Docusate [Colace] 200 mg PO HS Acetaminophen/Diphenhydramine [Tylenol PM 500-25mg] 2 tab PO HS Dapagliflozin Propanediol [Farxiga] 5 mg PO DAILY Acetaminophen [Tylenol Arthritis] 1,300 mg PO DAILY Ezetimibe [Zetia] 10 mg PO HS Discontinued Aspirin 81 mg PO DAILY Discharge Medication List Tamsulosin HCl [Flomax] 0.4 mg PO HS 03/27/14 [History] Glimepiride [Amaryl] 4 mg PO BID 03/11/19 [History] sitaGLIPtin PHOS/metFORMIN HCL [Janumet 50-500 mg Tablet] 1 tab PO BID 03/11/19 [History] Acetaminophen [Tylenol Arthritis] 1,300 mg PO DAILY 05/04/24 [History] Acetaminophen/Diphenhydramine [Tylenol PM 500-25mg] 2 tab PO HS 05/04/24 [History] Dapagliflozin Propanediol [Farxiga] 5 mg PO DAILY 05/04/24 [History] Docusate [Colace] 200 mg PO HS 05/04/24 [History] Ezetimibe [Zetia] 10 mg PO HS 05/04/24 [History] Famotidine [Pepcid] 20 mg PO DAILY PRN 05/04/24 [History] Loratadine [Claritin] 10 mg PO DAILY PRN 05/04/24 [History] Metoprolol Succinate (ER) [Toprol XL] 25 mg PO BID 05/04/24 [History] Multivit-Minerals/FA/Lycopene [One-A-Day Men's 50 Plus Tablet] 1 tab PO HS 05/04/24 [History] Rosuvastatin Calcium [Crestor] 40 mg PO HS 05/04/24 [History] bisacodyL [Dulcolax] 5 mg PO DAILY PRN 05/04/24 [History] Aspirin 325 mg PO BID #60 tab 05/06/24 [Rx] HYDROcodone/APAP 7.5-325MG [[place] 7.5-325] 1 each PO Q6HR PRN #28 tab 05/06/24 [Rx] INSULIN LISPRO (HumaLOG) [HumaLOG] 0 unit SQ ACHS each 05/09/24 [Rx] Lactulose [Cephulac] 20 gm PO BID ml 05/09/24 [Rx] Sennosides-Docusate Sodium [Senokot-S] 1 tab PO BID PRN #60 tablet 05/09/24 [Rx] polyethylene glycoL 3350 [Miralax] 17 gm PO DAILY packet 05/09/24 [Rx] Follow up Appointment(s)/Referral(s): Majo Galeana MD [Primary Care Provider] - 1 Week (at [facility]) Chris Rivers PAC [PHYSICIAN ERECTION SHOP SUPERVISOR] - 05/20/24 10:15 am (Patient may follow-up with Chris Rivers PA-C or Dr. Fito Farris at [facility] in 2-3 weeks following discharge. ) Activity/Diet/Wound Care/Special Instructions: 1. Keep Optifoam dressing over the left hip intact over the next 7 days 2. Patient may shower with dressing intact over the surgical site of the left hip 3. Patient may shower without a dressing intact after 7 days his incision site remains clean and dry 4. Weight-bear as tolerated left lower extremity with a walker with assistance 5. Patient must keep abductor pillow intact while lying in bed 5. Take medications as prescribed 6. Any questions or concerns patient may contact [facility] at [phone] Discharge Disposition: TRANSFER TO SNF/ECF
--- NOTE | 2024-05-12 13:07 | P.PN ---
Subjective Progress Note Date: 05/12/24 SURGICAL PROGRESS NOTE CHIEF COMPLAINT: Ileus HISTORY OF PRESENT ILLNESS: Patient reports his nausea is improved. He did have a bowel movement yesterday. He is undergoing the small bowel follow-through currently. He denies any abdominal pain. Afebrile. WBC 6.0 Hgb 10.5 creatinine 1.28 PHYSICAL EXAM: VITAL SIGNS: Reviewed. GENERAL: Well-developed in no acute distress. ABDOMEN: Soft. Less distended. Nontender NEUROLOGIC: Alert and oriented. Cranial nerves II through XII grossly intact. ASSESSMENT: 1. Abdominal distention 2. Ileus PLAN: -Follow-up on small bowel follow-through results -Further recommendations forthcoming Physician Vp Organizational Development note has been reviewed by physician. Signing provider agrees with the documented findings, assessment, and plan of care. I have personally seen and examined the patient, reviewed the DECORATION CHECKER /PAs history, exam and MDM and agree with the assessment and plan as written. Based on total visit time, I have performed more than 50% of the visit. As above: Patient doing better today. Small bowel series shows no obstruction. Continue slowly advancing diet. May discharge if tolerates. Continue stool softeners post discharge. Increase activity as tolerated. Objective - Vital Signs Vital signs: Vital Signs Temp 98.3 F 05/12/24 07:08 Pulse 68 05/12/24 07:08 Resp 18 05/12/24 07:08 BP 137/70 05/12/24 07:08 Pulse Ox 98 05/12/24 07:08 FiO2 Intake & Output 05/11/24 05/12/24 05/12/24 18:59 06:59 18:59 Output Total 1250 400 Balance -1250 -400 Weight 86.183 kg Output: Urine 1250 400 Other: Voiding Method External Catheter External Catheter External Catheter # Voids 3 # Bowel Movements 1 - Labs CBC & Chem 7: 05/12/24 10:13 05/12/24 10:13 Labs: Abnormal Lab Results - Last 24 Hours (Table) 05/11/24 05/11/24 05/12/24 Range/Units 17:29 20:31 10:13 RBC 3.41 L (4.30-5.90) m/uL Hgb 10.5 L (13.0-17.5) gm/dL Hct 33.4 L (39.0-53.0) % Lymphocytes # 0.9 L (1.0-4.8) k/uL Sodium (137-145) mmol/L Chloride (98-107) mmol/L Carbon Dioxide (22-30) mmol/L BUN (9-20) mg/dL Creatinine (0.66-1.25) mg/dL Glucose (74-99) mg/dL POC Glucose (mg/dL) 126 H 131 H (70-110) mg/dL AST (17-59) U/L ALT (4-49) U/L Total Protein (6.3-8.2) g/dL Albumin (3.5-5.0) g/dL 05/12/24 05/12/24 Range/Units 10:13 11:35 RBC (4.30-5.90) m/uL Hgb (13.0-17.5) gm/dL Hct (39.0-53.0) % Lymphocytes # (1.0-4.8) k/uL Sodium 136 L (137-145) mmol/L Chloride 108 H (98-107) mmol/L Carbon Dioxide 20 L (22-30) mmol/L BUN 35 H (9-20) mg/dL Creatinine 1.28 H (0.66-1.25) mg/dL Glucose 118 H (74-99) mg/dL POC Glucose (mg/dL) 120 H (70-110) mg/dL AST 72 H (17-59) U/L ALT 130 H (4-49) U/L Total Protein 5.3 L (6.3-8.2) g/dL Albumin 2.9 L (3.5-5.0) g/dL
--- NOTE | 2024-05-12 13:47 | FL ---
EXAMINATION TYPE: FL small bowel follow through DATE OF EXAM: 05/12/2024 1:33 PM COMPARISON: None. CLINICAL INDICATION: Male, 84 years old with history of abdominal distention, nausea,f/up on dilated bowel, Abdominal Pain TECHNIQUE: The patient was asked to ingest liquid Barium and incremental frontal abdominal radiograph s were then taken until contrast was visualized in the cecum. FINDINGS: The patient ingested contrast without difficulty. Small bowel follow-through was performed with ayala sit time of 4 hours. Small bowel loops appear to be of normal caliber and demonstrate normal mucosal fold pattern. No evidence for intrinsic or extrinsic mass. No evidence for mucosal abnormality. I do not see evidence for Crohn's disease. Normal-appearing terminal ileum. IMPRESSION: No evidence for bowel obstruction. [facility], , 05/12/2024 1:44 PM
[2024-05-12 16:47] LABS: Glucose,Whole Blood 139 mg/dL (70-110)
[2024-05-12 20:50] LABS: Glucose,Whole Blood 155 mg/dL (70-110)
[2024-05-13 06:32] LABS: Glucose,Whole Blood 118 mg/dL (70-110)
[2024-05-13 08:51] VITALS: BP 163/67; PULSE 55; RESP 18; TEMP 97.4
--- NOTE | 2024-05-13 09:03 | P.DS ---
Providers Date of admission: 05/04/24 13:25 Expected date of discharge: 05/13/24 Attending physician: Karla Farris Consults: 05/04/24 13:23 Consult Physician Routine Consulting Provider: Majo Galeana Consult Reason/Comments: medical care Do you want consulting provider notified?: Yes 05/09/24 15:06 Consult Physician Routine Consulting Provider: Martin Norwood Consult Reason/Comments: possible bowel obstruction/ileus Do you want consulting provider notified?: Yes Primary care physician: Majo Galeana - Discharge Diagnosis(es) (1) Left hip pain Current Visit: Yes Status: Acute (2) Inability to ambulate due to hip Current Visit: Yes Status: Acute (3) Status post fall Current Visit: Yes Status: Acute (4) Hypertension Current Visit: Yes Status: Acute (5) Type 2 diabetes mellitus Current Visit: Yes Status: Acute (6) Diabetic neuropathy Current Visit: Yes Status: Acute (7) History of prostate cancer Current Visit: Yes Status: Acute (8) Chronic kidney disease Current Visit: Yes Status: Acute (9) Hyperlipidemia Current Visit: Yes Status: Acute (10) Hip fracture, left Current Visit: Yes Status: Acute (11) S/P hip hemiarthroplasty Current Visit: Yes Status: Acute Hospital Course: This is a pleasant 84-year-old male who presented with left hip femoral neck fracture and left hip pain status post fall. He was admitted for further treatment and evaluation. He underwent left hip hemiarthroplasty performed on 05/05/2024. He has been improving in regards to his left hip. His left hip pain is well-controlled. He has no complaints in regards to his hip. He feels he continues to improve. The patient tolerated the procedure well and did well postoperatively. He is not currently complaining of any significant left hip pain. He is planning for discharge today to [facility] rehabilitation facility. This has been authorized by his insurance. He was cleared for discharge yesterday but there was not a bed available. Bed is available today and patient will be discharged today. Patient is currently being evaluated by Dr. Norwood in general surgery for his abdomen. He has gone through a small bowel follow-through today. Has not had a bowel movement and will give another Dulcolax suppository 10 mg x 1. If the small bowel follow-through is okay patient can be discharged to [facility] on the [address] this afternoon, per medicine. Patient will need clearance by general surgery as well. I did discuss with the patient that he must be cleared by general surgery and medicine prior to his discharge to rehab today. Will verify his clearance for discharge. Condition on day of discharge will be stable. Medicine has been following the patient for his other medical diagnoses during his admission. Patient currently denies any nausea, vomiting, fever, or chills. Patient is eating liquids and voiding freely without difficulty and external catheter. Patient may shower Optifoam dressing intact. Patient may remove Optifoam dressing in 7 days and shower without a dressing at that time. Patient should refrain from driving until at least after their first follow-up appointment in the office. Patient may weight-bear as tolerated on the left lower extremity with the assistance of a walker. Patient must keep abductor pillow in place while lying in bed. Pillow does not have to be utilized when sitting in a chair or working with therapy. A prescription has been written for prescription is written, signed, and placed in the patient's chart for hydrocodone 7.5 mg / 325 mg, 1 tab, every 6 hours, as needed for acute pain, dispense #28. He is given a prescription for aspirin 325 mg 1 tab twice daily, dispense #60. Prescription should be taken until completion for postoperative anticoagulation. Patient is also given a prescription for Senokot-S, 1 tab, twice daily, as n eeded for constipation, dispense #60. Patient's other medical diagnoses include acute kidney injury on chronic kidney disease stage IIIb, hypertension, hyperlipidemia, diabetes type 2, diabetic polyneuropathy, and history of prostate cancer. Physical Exam on day of discharge: Status post surgical day number 8 Patient is examined lying in bed Patient is awake, alert, and oriented 3 Vital signs stable Good chest excursion with deep inspiration and expiration No signs or symptoms of DVT; no calf pain; calves are soft nontender Lower extremity cuffs not currently in place bilaterally Dressing of the left hip is clean, dry, and intact; no erythema, purulence, or signs of infection No significant pain with palpation over the surgical site at the left hip Procedures: Left hip hemiarthroplasty Patient Condition at Discharge: Stable Plan - Discharge Summary Discharge Rx Participant: No New Discharge Prescriptions: New Aspirin 325 mg PO BID #60 tab HYDROcodone/APAP 7.5-325MG [[place] 7.5-325] 1 each PO Q6HR PRN #28 tab PRN Reason: Pain Sennosides-Docusate Sodium [Senokot-S] 1 tab PO BID PRN #60 tablet PRN Reason: Constipation Lactulose [Cephulac] 20 gm PO BID ml INSULIN LISPRO (HumaLOG) [HumaLOG] 0 unit SQ ACHS each polyethylene glycoL 3350 [Miralax] 17 gm PO DAILY packet Continue Tamsulosin HCl [Flomax] 0.4 mg PO HS Glimepiride [Amaryl] 4 mg PO BID sitaGLIPtin PHOS/metFORMIN HCL [Janumet 50-500 mg Tablet] 1 tab PO BID Loratadine [Claritin] 10 mg PO DAILY PRN PRN Reason: Allergy Symptoms in Summer Multivit-Minerals/FA/Lycopene [One-A-Day Men's 50 Plus Tablet] 1 tab PO HS Rosuvastatin Calcium [Crestor] 40 mg PO HS Metoprolol Succinate (ER) [Toprol XL] 25 mg PO BID bisacodyL [Dulcolax] 5 mg PO DAILY PRN PRN Reason: Constipation Famotidine [Pepcid] 20 mg PO DAILY PRN PRN Reason: acid sampler ovens Docusate [Colace] 200 mg PO HS Acetaminophen/Diphenhydramine [Tylenol PM 500-25mg] 2 tab PO HS Dapagliflozin Propanediol [Farxiga] 5 mg PO DAILY Acetaminophen [Tylenol Arthritis] 1,300 mg PO DAILY Ezetimibe [Zetia] 10 mg PO HS Discontinued Aspirin 81 mg PO DAILY Discharge Medication List Tamsulosin HCl [Flomax] 0.4 mg PO HS 03/27/14 [History] Glimepiride [Amaryl] 4 mg PO BID 03/11/19 [History] sitaGLIPtin PHOS/metFORMIN HCL [Janumet 50-500 mg Tablet] 1 tab PO BID 03/11/19 [History] Acetaminophen [Tylenol Arthritis] 1,300 mg PO DAILY 05/04/24 [History] Acetaminophen/Diphenhydramine [Tylenol PM 500-25mg] 2 tab PO HS 05/04/24 [History] Dapagliflozin Propanediol [Farxiga] 5 mg PO DAILY 05/04/24 [History] Docusate [Colace] 200 mg PO HS 05/04/24 [History] Ezetimibe [Zetia] 10 mg PO HS 05/04/24 [History] Famotidine [Pepcid] 20 mg PO DAILY PRN 05/04/24 [History] Loratadine [Claritin] 10 mg PO DAILY PRN 05/04/24 [History] Metoprolol Succinate (ER) [Toprol XL] 25 mg PO BID 05/04/24 [History] Multivit-Minerals/FA/Lycopene [One-A-Day Men's 50 Plus Tablet] 1 tab PO HS 05/04/24 [History] Rosuvastatin Calcium [Crestor] 40 mg PO HS 05/04/24 [History] bisacodyL [Dulcolax] 5 mg PO DAILY PRN 05/04/24 [History] Aspirin 325 mg PO BID #60 tab 05/06/24 [Rx] HYDROcodone/APAP 7.5-325MG [[place] 7.5-325] 1 each PO Q6HR PRN #28 tab 05/06/24 [Rx] INSULIN LISPRO (HumaLOG) [HumaLOG] 0 unit SQ ACHS each 05/09/24 [Rx] Lactulose [Cephulac] 20 gm PO BID ml 05/09/24 [Rx] Sennosides-Docusate Sodium [Senokot-S] 1 tab PO BID PRN #60 tablet 05/09/24 [Rx] polyethylene glycoL 3350 [Miralax] 17 gm PO DAILY packet 05/09/24 [Rx] Follow up Appointment(s)/Referral(s): Majo Galeana MD [Primary Care Provider] - 1 Week (at [facility]) Chris Rivers PAC [PHYSICIAN DIAMOND POWDER TECHNICIAN] - 05/20/24 10:15 am (Patient may follow-up with Chris Rivers PA-C or Dr. Fito Farris at [facility] in 2-3 weeks following discharge. ) Activity/Diet/Wound Care/Special Instructions: 1. Keep Optifoam dressing over the left hip intact over the next 7 days 2. Patient may shower with dressing intact over the surgical site of the left hip 3. Patient may shower without a dressing intact after 7 days his incision site remains clean and dry 4. Weight-bear as tolerated left lower extremity with a walker with assistance 5. Patient must keep abductor pillow intact while lying in bed 5. Take medications as prescribed 6. Any questions or concerns patient may contact [facility] at [phone] Discharge Disposition: TRANSFER TO SNF/ECF
--- NOTE | 2024-05-13 09:11 | P.PN ---
Subjective Progress Note Date: 05/13/24 HISTORY OF PRESENT ILLNESS: This is an 84-year-old male with a previous medical history signifi cant for hypertension and hypertensive cardiovascular disease, mixed hyperlipidemia, diabetes mellitus type 2, with diabetic polyneuropathy, chronic kidney disease stage IIIb, history of prostate cancer status post radiation therapy currently in remission, patient was in his usual state of health till about today when he was trying to get out of the car going inside the garage and all of a sudden he did not wait for his walker he tripped with his left foot and landed on the left side, he had tremendous amount of pain, EMS was called and the patient was brought into the ER for evaluation he was found to have a left subcapital femoral neck fracture, he was seen and evaluated by orthopedic surg matheus who recommended for the patient to go for left hemiarthroplasty, patient does not appear to have any acute chest pain at this point in time, he has no shortness of breath, he appears quite drowsy because he was receiving Dilaudid, he denies any chest pain or any shortness of breath at this point in time, patient had a twelve-lead EKG did not show evidence of acute abnormalities, patient is going for a moderate risk surgery there is no contraindication for the surgical intervention, surgery may carry the risk of a few complications that the patient is aware of and willing to proceed. 05/05: Patient underwent left hemiarthroplasty that was done successfully by , patient seemed to have a bit of a dry mouth, the nursing staff thought that the patient is having an acute stroke at this point in time there was concern about that, therefore the patient was sent for CT scan of the brain without contrast for further evaluation I reviewed the CT scan myself I did not see any evidence of acute CVA at this point in time, await the final results from the radiologist, patient appears to be back to baseline, he does not appear to have any acute weakness in the upper or lower extremities, he seems to be back to baseline. Patient has a Valero catheter in place we will continue with that, physical therapy evaluation, incentive spirometer, pain management, follow-up with the patient very closely. 05/06: Patient is laying down in bed in no apparent distress, he is feeling a lot better today, he continues to have some pain in the left hip area not as bad as it was. He is working with physical therapy, he continues to have a Valero catheter in place, we will try to discontinue Valero catheter, increase activity, continue to work with physical therapy, the plan is for the patient to go for subacute rehabilitation hopefully in the next 24 hours otherwise he will have to wait until Thursday. 05/07: Patient sitting up in bed today in no apparent distress, he stated the pain is well-controlled today, he denies any chest pain, or shortness of breath, he has not had a bowel movement in 5 days, we will add lactulose 20 g orally twice every day, continue current treatment plan, continue stool softener, continue MiraLAX, increase activity with physical therapy, patient does not want his Valero catheter to be removed yet, because is not ambulatory yet patient became delirious yesterday, he was pulling on his bandages, likely related to pain management, will continue to monitor the patient very closely, physical therapy evaluation, likely to be discharged to [facility] on Thursday. 05/08: Patient sitting up in bed in no apparent distress, he seems to be back to baseline, he denies any chest pain, or shortness of breath, monitor the patient's symptoms very closely, patient Valero catheter need to be removed, increase activity level, continue work with physical therapy, likely the patient will be discharged to [facility] tomorrow morning . 05/09: Patient sitting up in bed is complain of increased heartburn, abdominal distention, increased nausea and vomiting, patient not able to keep his medication down, abdominal x-ray showed evidence of ileus it was recommended for the patient to have a CT scan of the abdomen with oral contrast, general surgery consultation will be obtained, hold off the discharge for the next 24 hours. 05/10: Patient did have a large bowel movement yesterday is feeling better today, patient will be maintained on current treatment plan, he is to have another Dulcolax suppository and we will continue with same await Surgery input before he can get out of here 05/11: Patient is sitting up in bed he continues to be somewhat nauseated, he is not vomiting today, he was seen in consultation by general surgery yesterday who recommended to do a follow-up abdominal x-ray today patient is currently on clear liquid diet for now, continue IV fluid resuscitation in the form of normal saline at 100 cc an hour, follow-up with the patient very closely, if the x-ray still showing an ileus patient will need to have a small bowel follow-through. 05/12: Patient sitting up in bed in no apparent risk, he is doing much better t jhonny, he denies any chest pain, shortness of breath, he just went for the small bowel follow-through today has not have the report yet he has not had a bowel movement, will give another Dulcolax suppository 10 mg x 1, if the small bowel follow-through is okay patient can be discharged to [facility] on the [facility] this afternoon, I will follow-up with the patient at [facility] in the next 24 hours. 05/13: Patient did have 4 bowel movement yesterday, he is feeling a lot better today, he has no nausea or vomiting, he is tolerating his soft diet very well, will continue with that, patient will be discharged back to [facility] on the [place] today no evidence of bowel obstruction at this time REVIEW OF SYSTEMS: Constitutional: No documented fever, no chills, no night sweats. No weight change. Positive for weakness, fatigue or lethargy. No daytime sleepiness. EENT: No headache. No blurred vision or double vision, no loss of vision. No loss of Hearing, no ringing in the ears, no dizziness. No nasal drainage or congestion. No epistaxis. No sore throat. Lungs: No shortness of breath, no cough, no sputum production. No wheezing. Reports dyspnea with activity. Cardiovascular: No chest pain, no lower extremity edema. No palpitations. No paroxysmal nocturnal dyspnea. No orthopnea. No lightheadedness or dizziness. No syncopal episodes. Abdominal: Reports abdominal pain. Minimal nausea, vomiting. No diarrhea. Positive for constipation. No bloody or tarry stools reports loss of appetite. Genitourinary: No dysuria, increased frequency, urgency. No urinary retention. Musculoskeletal: No myalgias. No muscle weakness, positive for gait dysfunction, positive for frequent falls. No back pain. No neck pain., left hip pain Integumentary: Left hip wound is clean covered with dressing. No lesions. No rash or pruritus. No unusual bruising. No change in hair or nails. Neurologic: Minimal chronic aphasia. Minimal facial droop. No change in mentation. No head injury. No headache. No paralysis. Positive paresthesia. Psychiatric: Mild depression. No anxiety. No mood swings. Endocrine:positive for abnormal blood sugars. No weight change. PHYSICAL EXAMINATION: General: 84-year-old male laying down in bed in minimal distress. HEENT: Head is atraumatic, normocephalic, pupils were equal round reactive to light and recommendation, extraocular muscle movement were intact, sclera nonicteric, conjunctivae were pale, mucous membranes of the mouth are somewhat dry. Neck: Supple, no JVP, normal carotid upstroke bilaterally, no lymphadenopathy. Chest: Decreased breath sounds at the bases, few rhonchi, no expiratory wheezes, no chest wall tenderness, no intercostal retractions. Heart: First heart sound is normal, second heart sounds normal there is systolic ejection murmur 2/6 located in the left sternal border. Abdomen: Soft, nontender, nondistended, positive bowel sounds. Extremities: There is no edema no calf tenderness DP +2 bilaterally, left incisi on appears to be covered with dressing no drainage Neurologic examination: Patient is awake alert and oriented x3, cranial nerves II-12 appear grossly intact, muscle power were 4 out of 5 in upper extremities and 4out of 5 in bilateral lower extremities, deep tendon reflexes were normal. ASSESSMENT AND PLAN: 1. Postoperative day #9 status post left hemiarthroplasty. Continue patient on incentive spirometer, continue to increase activity, continue current pain management, continue physical therapy continue current treatment plan. 2. Acute kidney injury on chronic kidney disease stage IIIb due to acute tubular necrosis and vasomotor nephropathy. Restart the patient back on normal saline at 100 cc an hour, repeat CMP tomorrow morning, discontinue metformin, discontinue Farxiga for now. 3. Hyponatremia due to hypovolemia. continue IV fluid resuscitation in the form of normal saline. 4. Hyperkalemia post Lokelma 5 g orally x 1 resolved. 5. Ileus due to recent surgical intervention reviewed CT scan of the abdomen pelvis that showed ileus surgical consultation appreciated, continue clear liquid diet, patient did have a small bowel follow-through done today, results are still pending. 6. Hypertension and hypertensive cardiovascular disease. Continue patient on metoprolol 25 mg orally twice a day, monitor the patient blood pressure very closely. 7. Mixed hyperlipidemia. Continue rosuvastatin 40 mg once every day, Zetia 10 mg once every day, monitor lipid panel, keep LDL 55-70. 8. Diabetes mellitus type 2. Continue patient on Lantus 12 units at bedtime along with a sliding scale insulin, discontinue metformin, continue patient on linagliptin 5 mg once every day discontinue Farxiga as well. 9. Diabetic polyneuropathy. tight control of diabetes. 10. Prostate cancer. Status post radiation therapy. 11. Medical debility. continue to work with physical therapy, patient will likely go to [facility] when his ileus resolves. 12. DVT prophylaxis. Patient will be started on aspirin 81 mg orally twice every day for 30 days postoperatively. 13. GI prophylaxis. Continue famotidine 20 mg orally twice every day along with Protonix 40 mg once every day. 14. Constipation continue patient on Senokot 2 tablet at bedtime along with MiraLAX 17 g in 8 ounce of water, and lactulose 20 g orally twice every day patient did receive a suppository 2 days in the row. 15. Acute delirium likely related to pain management. Appears better now. 16. patient is medically stable for discharge to [facility] on the [facility] today. Objective - Vital Signs Vital signs: Vital Signs Temp 97.4 F L 05/13/24 07:21 Pulse 55 L 05/13/24 07:21 Resp 18 05/13/24 07:21 BP 163/67 05/13/24 07:21 Pulse Ox 97 05/13/24 07:21 FiO2 Intake & Output 05/12/24 05/13/24 05/13/24 18:59 06:59 18:59 Intake Total 1080 Output Total 700 950 Balance -700 130 Intake: Oral 1080 Output: Urine 700 950 Other: Voiding Method External Catheter External Catheter # Bowel Movements 1 5 - Labs CBC & Chem 7: 05/12/24 10:13 05/12/24 10:13 Labs: Abnormal Lab Results - Last 24 Hours (Table) 05/12/24 05/12/24 05/12/24 Range/Units 10:13 10:13 11:35 RBC 3.41 L (4.30-5.90) m/uL Hgb 10.5 L (13.0-17.5) gm/dL Hct 33.4 L (39.0-53.0) % Lymphocytes # 0.9 L (1.0-4.8) k/uL Sodium 136 L (137-145) mmol/L Chloride 108 H (98-107) mmol/L Carbon Dioxide 20 L (22-30) mmol/L BUN 35 H (9-20) mg/dL Creatinine 1.28 H (0.66-1.25) mg/dL Glucose 118 H (74-99) mg/dL POC Glucose (mg/dL) 120 H (70-110) mg/dL AST 72 H (17-59) U/L ALT 130 H (4-49) U/L Total Protein 5.3 L (6.3-8.2) g/dL Albumin 2.9 L (3.5-5.0) g/dL 05/12/24 05/12/24 05/13/24 Range/Units 16:46 20:48 06:30 RBC (4.30-5.90) m/uL Hgb (13.0-17.5) gm/dL Hct (39.0-53.0) % Lymphocytes # (1.0-4.8) k/uL Sodium (137-145) mmol/L Chloride (98-107) mmol/L Carbon Dioxide (22-30) mmol/L BUN (9-20) mg/dL Creatinine (0.66-1.25) mg/dL Glucose (74-99) mg/dL POC Glucose (mg/dL) 139 H 155 H 118 H (70-110) mg/dL AST (17-59) U/L ALT (4-49) U/L Total Protein (6.3-8.2) g/dL Albumin (3.5-5.0) g/dL
[2024-05-13 11:29] LABS: Glucose,Whole Blood 280 mg/dL (70-110)
--- NOTE | 2024-05-13 14:48 | P.PN ---
Subjective Progress Note Date: 05/13/24 SURGICAL PROGRESS NOTE CHIEF COMPLAINT: Ileus HISTORY OF PRESENT ILLNESS: Patient lying in bed comfortably. He denies any abdominal pain. Denies any nausea or vomiting. He is tolerating the full liquid diet. Small bowel follow-through showed no evidence of bowel obstruction. Patient being discharged to [facility] today. PHYSICAL EXAM: VITAL SIGNS: Reviewed. GENERAL: Well-developed in no acute distress. ABDOMEN: Soft. Mildly distended. Patient reports abdomen is is normal size abdomen. Nontender NEUROLOGIC: Alert and oriented. Cranial nerves II through XII grossly intact. ASSESSMENT: 1. Abdominal distention 2. Ileus PLAN: -No evidence of bowel obstruction on small bowel follow-through. Patient tolerating a full liquid diet. Patient can be discharged from surgical standpoint. -Continue to advance diet slowly as tolerated -Continue bowel regimen Physician Relay Repairer note has been reviewed by physician. Signing provider agrees with the documented findings, assessment, and plan of care. I have personally seen and examined the patient, reviewed the CHECKROOM ATTENDANT /PAs history, exam and MDM and agree with the assessment and plan as written. Based on total visit time, I have performed more than 50% of the visit. As above: Patient doing well today. Tolerating diet. Having loose stools. Will sign off. Please call if needed. Objective - Vital Signs Vital signs: Vital Signs Temp 97.4 F L 05/13/24 07:21 Pulse 55 L 05/13/24 07:21 Resp 18 05/13/24 07:21 BP 163/67 05/13/24 07:21 Pulse Ox 97 05/13/24 07:21 FiO2 Intake & Output 05/12/24 05/13/24 05/13/24 18:59 06:59 18:59 Intake Total 1080 Output Total 700 950 Balance -700 130 Intake: Oral 1080 Output: Urine 700 950 Other: Voiding Method External Catheter External Catheter # Bowel Movements 1 5 - Labs CBC & Chem 7: 05/12/24 10:13 05/12/24 10:13 Labs: Abnormal Lab Results - Last 24 Hours (Table) 05/12/24 05/12/24 05/13/24 Range/Units 16:46 20:48 06:30 POC Glucose (mg/dL) 139 H 155 H 118 H (70-110) mg/dL 05/13/24 Range/Units 11:27 POC Glucose (mg/dL) 280 H (70-110) mg/dL
== END 2024-05-13 15:09 | DRG 521 ==
LOC: EC 10:14 → 4SSUR 13:25
PROVIDERS: ADMIT Orthopaedic Surgery Orthopaedic Surgery of the Spine; ATTEND Orthopaedic Surgery Orthopaedic Surgery of the Spine
PROC: 3E0T3BZ Introduction of Anesthetic Agent into Peripheral Nerves and Plexi, Percutaneous Approach (ICD-10-PCS; 2024-05-05)
PROC: 0SRS0JZ Replacement of Left Hip Joint, Femoral Surface with Synthetic Substitute, Open Approach (ICD-10-PCS; principal; 2024-05-05 07:30)
DX: S72.012A Unspecified intracapsular fracture of left femur, initial encounter for closed fracture (principal); N17.0 Acute kidney failure with tubular necrosis; F05 Delirium due to known physiological condition; I13.0 Hypertensive heart and chronic kidney disease with heart failure and stage 1 through stage 4 chronic kidney disease, or unspecified chronic kidney disease; E87.1 Hypo-osmolality and hyponatremia; E86.1 Hypovolemia; C61 Malignant neoplasm of prostate; S72.002A Fracture of unspecified part of neck of left femur, initial encounter for closed fracture; E11.22 Type 2 diabetes mellitus with diabetic chronic kidney disease; N18.32 Chronic kidney disease, stage 3b; K56.0 Paralytic ileus; E11.42 Type 2 diabetes mellitus with diabetic polyneuropathy; Z79.4 Long term (current) use of insulin; E87.5 Hyperkalemia; E78.2 Mixed hyperlipidemia; R53.81 Other malaise; Z86.73 Personal history of transient ischemic attack (TIA), and cerebral infarction without residual deficits; Z85.46 Personal history of malignant neoplasm of prostate; W18.30XA Fall on same level, unspecified, initial encounter; W10.9XXA Fall (on) (from) unspecified stairs and steps, initial encounter; Z88.8 Allergy status to other drugs, medicaments and biological substances; Z90.49 Acquired absence of other specified parts of digestive tract; Z95.0 Presence of cardiac pacemaker; Y92.015 Private garage of single-family (private) house as the place of occurrence of the external cause; Y93.01 Activity, walking, marching and hiking; Z79.82 Long term (current) use of aspirin; Z79.84 Long term (current) use of oral hypoglycemic drugs; Z79.899 Other long term (current) drug therapy; Z87.891 Personal history of nicotine dependence; Z92.3 Personal history of irradiation
CPT/HCPCS: 64999; 70450; 71045; 73501; 73502; 74019; 74176; 74250; 80053; 83036; 85025; 85610; 93005; 96372; 96374; 99285